=== PATIENT | female | born 1970 | race Caucasian/White ===

== ENCOUNTER → 2017-05-26 | Outpatient (CLI) | payer OTHER ==
--- NOTE | 2017-05-27 07:49 | MM ---
Reason for exam: screening (asymptomatic). Last mammogram was performed 6 months ago. History: Patient is postmenopausal. Family history of breast cancer in mother at age 62. Benign right US cyst aspiration of the right breast, April 04, 2008. Physical Findings: A clinical breast exam by your physician is recommended on an annual basis and results should be correlated with mammographic findings. MG Screening Mammo w CAD Bilateral CC and MLO view(s) were taken. Prior study comparison: November 28, 2016, left breast MG diagnostic mammo LT w CAD. May 31, 2016, left breast MG work up mamm w CAD LT. There are scattered fibroglandular densities. No significant changes when compared with prior studies. ASSESSMENT: Benign, BI-RAD 2 RECOMMENDATION: Routine screening mammogram of both breasts in 1 year.
== END | disposition home or self-care (01) ==
LOC: RADMAMWWP 10:18
PROVIDERS: ATTEND Family Medicine
DX: Z12.31 Encounter for screening mammogram for malignant neoplasm of breast (principal)

== ENCOUNTER → 2017-08-11 | Outpatient (CLI) | payer OTHER ==
--- NOTE | 2017-08-11 10:01 | USB ---
Reason for exam: follow-up at short interval from prior study. History: Patient is postmenopausal. Family history of breast cancer in mother at age 62. Benign right US cyst aspiration of the right breast, April 04, 2008. Indicated problem(s): pain in the left breast. Physical Findings: Nurse Summary: Noted pain and redness about 3 weeks in the left breast (nurse kp). US Breast LT Left breast ultrasound includes all four quadrants, the retroareolar region and axilla. Finding demonstrate no cystic or solid lesion seen. No suspicious sonographic abnormality. These results were verbally communicated with the patient and result sheet given to the patient on 08/11/17. ASSESSMENT: Negative, BI-RAD 1 RECOMMENDATION: Return to routine screening mammogram schedule for both breasts. Back on schedule.
== END | disposition home or self-care (01) ==
LOC: RADUSWWP 08:52
PROVIDERS: ATTEND Family Medicine
DX: N63 Unspecified lump in breast (principal)

== ENCOUNTER → 2018-06-02 | Outpatient (CLI) | payer OTHER ==
--- NOTE | 2018-06-02 14:11 | MM ---
Reason for exam: screening (asymptomatic). Last mammogram was performed 1 year ago. History: Patient is postmenopausal. Family history of breast cancer in mother at age 62. Benign right US cyst aspiration of the right breast, April 04, 2008. Physical Findings: A clinical breast exam by your physician is recommended on an annual basis and results should be correlated with mammographic findings. MG Screening Mammo w CAD Bilateral CC and MLO view(s) were taken. Prior study comparison: May 26, 2017, bilateral MG screening mammo w CAD. November 28, 2016, left breast MG diagnostic mammo LT w CAD. The breast tissue is heterogeneously dense. This may lower the sensitivity of mammography. No suspicious abnormality on the right. Increased density of the far posterior upper outer quadrant focal asymmetry on the left. ASSESSMENT: Incomplete: need additional imaging evaluation, BI-RAD 0 RECOMMENDATION: Special view mammogram of the left breast. If lesion persists on supplemental views, image directed ultrasound is recommended. [facility] will attempt to contact patient to return for supplemental views and ultrasound if indicated.
== END | disposition home or self-care (01) ==
LOC: RADMAMWWP 07:16
PROVIDERS: ATTEND Family Medicine
DX: Z12.31 Encounter for screening mammogram for malignant neoplasm of breast (principal)
CPT/HCPCS: 77067

== ENCOUNTER → 2018-06-16 | Outpatient (CLI) | payer OTHER ==
--- NOTE | 2018-06-16 15:41 | MM ---
Reason for exam: additional evaluation requested from abnormal screening. Last mammogram was performed less than 1 month ago. History: Patient is postmenopausal and history of other cancer. Family history of breast cancer in mother at age 62. Benign right US cyst aspiration of the right breast, April 04, 2008. Physical Findings: Nurse did not find any significant physical abnormalities on exam. MG Work Up Mamm w CAD LT Spot compression CC, spot compression MLO, and LM view(s) were taken of the left breast. Prior study comparison: June 02, 2018, bilateral MG screening mammo w CAD. May 26, 2017, bilateral MG screening mammo w CAD. Finding: There is a 12 mm circumscribed oval mass in the upper outer quadrant, posterior position of the left breast, does not go away on additional views but at site of asymmetric tissue. These results were verbally communicated with the patient and result sheet given to the patient on 06/16/18. ASSESSMENT: Incomplete: need additional imaging evaluation, BI-RAD 0 RECOMMENDATION: Ultrasound of the left breast.
--- NOTE | 2018-06-16 15:42 | USB ---
Reason for exam: additional evaluation requested from abnormal screening. History: Patient is postmenopausal and history of other cancer. Family history of breast cancer in mother at age 62. Benign right US cyst aspiration of the right breast, April 04, 2008. US Breast Workup Limited LT Left limited breast ultrasound including focal area of concern, retroareolar and axilla demonstrates no cystic or solid lesion seen. These results were verbally communicated with the patient and result sheet given to the patient on 06/16/18. ASSESSMENT: Negative, BI-RAD 1 RECOMMENDATION: Return to routine screening mammogram schedule for both breasts.
== END ==
LOC: RADMAMWWP 14:04
PROVIDERS: ATTEND Family Medicine
DX: R92.8 Other abnormal and inconclusive findings on diagnostic imaging of breast (principal)
CPT/HCPCS: 77065

== ENCOUNTER → 2018-08-05 | Outpatient (CLI) | payer OTHER ==
--- NOTE | 2018-08-05 13:43 | XR ---
EXAM TYPE: LUMBAR SPINE X RAY SERIES COMPARISON: NONE HISTORY: Pain TECHNIQUE: 3 views are submitted. FINDINGS: Alignment is anatomic. The pedicles are intact. The transverse processes are intact. There is no s pondylolysis or spondylolisthesis. Hypertrophic changes at all levels. There is marked facet arthrop athy L5-S1. IMPRESSION: 1. Hypertrophic changes at all levels with marked facet arthropathy L5-S1. Correlate with MRI as clin ically warranted.
== END | disposition home or self-care (01) ==
LOC: RADXRMAIN 13:20
PROVIDERS: ATTEND Family Medicine
DX: M46.97 Unspecified inflammatory spondylopathy, lumbosacral region (principal); M53.86 Other specified dorsopathies, lumbar region
CPT/HCPCS: 72100

== ENCOUNTER 2018-11-09 17:11 | Observation (INO) | payer OTHER ==
[2018-11-09 17:42] LABS: Basophils % (A) 0 %; Eosinophils # (A) 0.2 k/uL (0-0.7); Eosinophils % (A) 3 %; HCT 40.1 % (34.0-46.0); HGB 13.6 gm/dL (11.4-16.0); Lymphocytes # (A) 2.2 k/uL (1.0-4.8); Lymphocytes % (A) 32 %; MCH 31.6 pg (25.0-35.0); MCHC 33.9 g/dL (31.0-37.0); MCV 93.2 fL (80.0-100.0); Mean Platelet Volume 6.5; Monocytes # (A) 0.3 k/uL (0-1.0); Monocytes % (A) 4 %; Neutrophils % (A) 59 %; Platelet Count 232 k/uL (150-450); RDW 13.2 % (11.5-15.5); WBC 6.8 k/uL (3.8-10.6)
[2018-11-09 17:50] LABS: INR 0.9 (<1.2); Partial Thromboplastin Time 23.4 sec (22.0-30.0); Prothrombin Time 9.9 sec (9.0-12.0)
[2018-11-09 17:52] LABS: ALT 36 U/L (9-52); AST 29 U/L (14-36); Albumin 4.5 g/dL (3.5-5.0); Alkaline Phosphatase 104 U/L (38-126); Anion Gap 10 mmol/L; Blood Urea Nitrogen 14 mg/dL (7-17); Calcium 9.5 mg/dL (8.4-10.2); Carbon Dioxide 26 mmol/L (22-30); Chloride 104 mmol/L (98-107); Glucose 120 mg/dL (74-99); Potassium 3.6 mmol/L (3.5-5.1); Sodium 140 mmol/L (137-145); Total Bilirubin 0.8 mg/dL (0.2-1.3); Total Protein 7.5 g/dL (6.3-8.2)
--- NOTE | 2018-11-09 17:55 | XR ---
EXAMINATION TYPE: XR chest 2V DATE OF EXAM: 11/09/2018 COMPARISON: 03/29/2012 HISTORY: Chest pain TECHNIQUE: Frontal and lateral views of the chest are obtained. FINDINGS: Heart and mediastinum are normal. Lungs are clear. Diaphragm is normal. Bony thorax is nor mal. IMPRESSION: Normal chest. No change.
[2018-11-09 17:56] LABS: Creatine Kinase 52 U/L (30-135)
[2018-11-09 18:09] LABS: Creatine Kinase MB 1.3 ng/mL (0.0-2.4); Troponin I <0.012 ng/mL (0.000-0.034)
--- NOTE | 2018-11-09 18:51 | ED ---
General Adult HPI - General Chief complaint: Chest Pain Stated complaint: chest pain Time Seen by Provider: 11/09/18 18:18 Source: patient, family, RN notes reviewed Mode of arrival: ambulatory Limitations: no limitations - History of Present Illness Initial comments: Chief complaint and history of present illness this is a 48-year-old female who reports that during the evening she developed discomfort to her left arm and her chest. She rolled over and hurt from the anterior left chest through to the back. This is happened on again off again several times over the past one half day. Her daughter reports that she complained of discomfort several hours ago and she looked white and diaphoretic. Patient reports she was diaphoretic this morning when she had the pain. EKG done in the emergency room today is similar to one done 6 years ago when the patient had a stress test. No acute ST elevation no ectopy. - Related Data Home Medications Medication Instructions Recorded Confirmed Hydrochlorothiazide 25 mg PO DAILY 12/28/15 11/09/18 Losartan Potassium 25 mg PO DAILY 12/28/15 11/09/18 Ascorbic Acid [Vitamin C] 500 mg PO DAILY 11/09/18 11/09/18 Cholecalciferol (Vitamin D3) 2,000 unit PO DAILY 11/09/18 11/09/18 [Vitamin D3] Cyanocobalamin [Vitamin B-12] 500 mcg PO DAILY 11/09/18 11/09/18 Docusate [Colace] 200 mg PO DAILY 11/09/18 11/09/18 Vitamin E 1,000 unit PO DAILY 11/09/18 11/09/18 traZODone HCL [Desyrel] 100 mg PO HS 11/09/18 11/09/18 Allergies Allergy/AdvReac Type Severity Reaction Status Date / Time No Known Allergies Allergy Verified 11/09/18 20:17 Review of Systems ROS Statement: Those systems with pertinent positive or pertinent negative responses have been documented in the HPI. Review of systems no headache or visual acuity changes no stiff neck or neck pain on-again off-again chest discomfort more to the left side somewhat reproducible when she rolls toward the right side. States she had numbness and tingling to her left arm during the evening. Pain does not increase with deep breathing or coughing. No nausea no vomiting. She doesn't come sweaty when she has the pain. Does describe the pain is radiating somewhat around the side to the back on the left side. No complaint of any GI or complaints no neuro deficits. All systems reviewed Patient denies any chronic medical problems other than hypertension. Her surgeries include removal of skin cancer on her face. Family history significant for breast and lung cancer. Patient denies any ALLERGIES. Patient denies smoking. Patient denies alcohol use. ROS Other: All systems not noted in ROS Statement are negative. Past Medical History Past Medical History: Hypertension History of Any Multi-Drug Resistant Organisms: None Reported Past Surgical History: No Surgical Hx Reported Past Psychological History: No Psychological Hx Reported Smoking Status: Never smoker Past Alcohol Use History: None Reported Past Drug Use History: None Reported General Exam - General Exam Comments Initial Comments: General: The patient is awake and alert, currently pain-free, history of left-sided chest pain that goes to the left back down the left arm several times over the past 12 hours. Vital signs shows temperature 97.6 pulse 72 respiratory rate 18 , blood pressure 116/78 Eye: Pupils are equal, round and reactive to light, extra-ocular movements are intact ; there is normal conjunctiva bilaterally. No signs of icterus. Ears, nose, mouth and throat: There are moist mucous membranes and no oral lesions. Neck: The neck is supple, there is no tenderness, no carotid bruit, thyroid not enlarged. Cardiovascular: There is a regular rate and rhythm. No murmur, rub or gallop is appreciated. Respiratory: Lungs are clear to auscultation, respirations are non-labored, breath sounds are equal. No wheezes, stridor, rales, or rhonchi. Patient thinks she can reproduce some of the pain by rolling toward the right side when bringing her right arm over her midline. Examination of the skin shows no evidence of any rash. Early shingles was discussed. Patient reports she has had shingles in the past. No pain on palpation of the chest wall. Gastrointestinal: Soft, non-distended, non-tender abdomen without masses or organomegaly noted. There is no rebound or guarding present. No CVA tenderness. Bowel sounds are unremarkable. Back: There is no tenderness to palpation in the midline. There is no obvious deformity. No rashes noted. Musculoskeletal: Normal ROM, no tenderness, minimal edema lower extremities.. There is no calf tenderness or swelling. Sensation intact. Pulses equal bilaterally 2+. Neurological: CN II-XII intact, There are no obvious motor or sensory deficits. Coordination appears grossly intact. Speech is normal. No focal or lateralizing findings Skin: Skin is warm and dry and no rashes or lesions are noted. Psychiatric: Cooperative, Limitations: no limitations Course Vital Signs 11/09/18 11/09/18 11/09/18 17:13 18:31 19:06 Temperature 97.6 F Pulse Rate 72 75 Pulse Rate [ 73 [employer]man ] Respiratory 18 16 Rate Blood Pressure 116/78 113/82 O2 Sat by Pulse 97 Oximetry EKG Findings - EKG Comments: EKG Findings:: EKG was done and reviewed upon arrival to emergency room. EKG times to 1719 showing normal sinus rhythm with nonspecific ST-T wave changes. No acute ST elevation or ectopy. Rate 92 with a [place] interval is 154 QRS 82 QT [address] Armstrong this EKG was compared to one done on 03/29/2012 and the patient was here having a stress test. And they are similar. Medical Decision Making - Medical Decision Making Medical decision making; 48-year-old female with left-sided chest pain radiates around to the back left side increases somewhat when she leans forward or rolls to the right. Diaphoretic at times with chest pain. EKG was done and compared to a previous EKG showing no acute ST elevation. Lab work shows white count 6.8 hemoglobin 13 hematocrit of 40 with a INR of 0.9. Potassium is 3.6 BUN 14 creatinine 0.75 and GFR greater than 90. Glucose 120. Troponin less than 0.012. D-dimer 0.31 Her chest pain started earlier in the morning approximately 4 AM. Her chest x-ray was done and the radiologist's findings are; heart and mediastinum are normal. Lungs are clear. Diaphragm is normal. Or thorax is normal. Impression; normal chest no change. Patient had CT of her chest abdomen and pelvis to rule out dissection and she also had CT result possibility of a PE. The radiologist reports no evidence of PE. No evidence of aortic dissection. He does mention a small subpleural nodule in the right lower lobe. Dr. Jones This will be followed by her family doctor. The patient was started on Nitropaste, given Tylenol for headache, started on low-dose heparin. Discussed the patient and at bedside costochondritis , pleurisy, angina. Lab tests all be within normal limits this time patient was admitted with further evaluation and consult cardiology. I spoke with Dr. encinas on-call hospitalist. - Lab Data Result diagrams: 11/09/18 17:27 11/09/18 17:27 Lab Results 11/09/18 11/09/18 11/09/18 Range/Units 17:27 17:27 17:27 WBC 6.8 (3.8-10.6) k/uL RBC 4.30 (3.80-5.40) m/uL Hgb 13.6 (11.4-16.0) gm/dL Hct 40.1 (34.0-46.0) % MCV 93.2 (80.0-100.0) fL MCH 31.6 (25.0-35.0) pg MCHC 33.9 (31.0-37.0) g/dL RDW 13.2 (11.5-15.5) % Plt Count 232 (150-450) k/uL Neutrophils % 59 % Lymphocytes % 32 % Monocytes % 4 % Eosinophils % 3 % Basophils % 0 % Neutrophils # 4.0 (1.3-7.7) k/uL Lymphocytes # 2.2 (1.0-4.8) k/uL Monocytes # 0.3 (0-1.0) k/uL Eosinophils # 0.2 (0-0.7) k/uL Basophils # 0.0 (0-0.2) k/uL PT (9.0-12.0) sec INR (<1.2) APTT (22.0-30.0) sec D-Dimer (<0.60) mg/L FEU Sodium 140 (137-145) mmol/L Potassium 3.6 (3.5-5.1) mmol/L Chloride 104 (98-107) mmol/L Carbon Dioxide 26 (22-30) mmol/L Anion Gap 10 mmol/L BUN 14 (7-17) mg/dL Creatinine 0.75 (0.52-1.04) mg/dL Est GFR (CKD-EPI)AfAm >90 (>60 ml/min/1.73 sqM) Est GFR (CKD-EPI)NonAf >90 (>60 ml/min/1.73 sqM) Glucose 120 H (74-99) mg/dL Calcium 9.5 (8.4-10.2) mg/dL Magnesium 2.0 (1.6-2.3) mg/dL Total Bilirubin 0.8 (0.2-1.3) mg/dL AST 29 (14-36) U/L ALT 36 (9-52) U/L Alkaline Phosphatase 104 (38-126) U/L Total Creatine Kinase 52 (30-135) U/L CK-MB (CK-2) 1.3 (0.0-2.4) ng/mL CK-MB (CK-2) Rel Index 2.5 Troponin I <0.012 (0.000-0.034) ng/mL Total Protein 7.5 (6.3-8.2) g/dL Albumin 4.5 (3.5-5.0) g/dL 11/09/18 11/09/18 Range/Units 17:27 17:27 WBC (3.8-10.6) k/uL RBC (3.80-5.40) m/uL Hgb (11.4-16.0) gm/dL Hct (34.0-46.0) % MCV (80.0-100.0) fL MCH (25.0-35.0) pg MCHC (31.0-37.0) g/dL RDW (11.5-15.5) % Plt Count (150-450) k/uL Neutrophils % % Lymphocytes % % Monocytes % % Eosinophils % % Basophils % % Neutrophils # (1.3-7.7) k/uL Lymphocytes # (1.0-4.8) k/uL Monocytes # (0-1.0) k/uL Eosinophils # (0-0.7) k/uL Basophils # (0-0.2) k/uL PT 9.9 (9.0-12.0) sec INR 0.9 (<1.2) APTT 23.4 (22.0-30.0) sec D-Dimer 0.31 (<0.60) mg/L FEU Sodium (137-145) mmol/L Potassium (3.5-5.1) mmol/L Chloride (98-107) mmol/L Carbon Dioxide (22-30) mmol/L Anion Gap mmol/L BUN (7-17) mg/dL Creatinine (0.52-1.04) mg/dL Est GFR (CKD-EPI)AfAm (>60 ml/min/1.73 sqM) Est GFR (CKD-EPI)NonAf (>60 ml/min/1.73 sqM) Glucose (74-99) mg/dL Calcium (8.4-10.2) mg/dL Magnesium (1.6-2.3) mg/dL Total Bilirubin (0.2-1.3) mg/dL AST (14-36) U/L ALT (9-52) U/L Alkaline Phosphatase (38-126) U/L Total Creatine Kinase (30-135) U/L CK-MB (CK-2) (0.0-2.4) ng/mL CK-MB (CK-2) Rel Index Troponin I (0.000-0.034) ng/mL Total Protein (6.3-8.2) g/dL Albumin (3.5-5.0) g/dL Disposition Clinical Impression: Unstable angina Disposition: ADMITTED IP TO THIS HOSP Condition: Fair Is patient prescribed a controlled substance at d/c from ED?: No Referrals: Fletcher sOpina MD [Primary Care Provider] - 1-2 days
--- NOTE | 2018-11-09 19:50 | CT ---
EXAMINATION TYPE: CT angio chest DATE OF EXAM: 11/09/2018 7:31 PM COMPARISON: None HISTORY: Chest pain. CT DLP: 335.7 mGycm Automated exposure control for dose reduction was used. CONTRAST: CTA scan of the thorax is performed with IV Contrast, patient injected with 100ml mL of Isovue 370, p ulmonary embolism protocol. . There are 3-D post processed images. FINDINGS: There is mild subsegmental atelectasis in the lower lung sanchez on the right side. There is 1 cm subp leural nodule at the right posterior lung base. There is no pleural effusion. Heart size is normal. T here is no pericardial effusion. Thoracic aorta shows no evidence of aneurysm or dissection. There ar e enlarged subcarinal and bronchial lymph nodes that measure 3 cm in the subcarinal region and 1.5 cm at the right pulmonary hilum. There is 1 cm anterior mediastinal lymph node. I see no filling defects in the pulmonary arteries. There is spurring in the thoracic spine. I see no bony destructive process. IMPRESSION: NO EVIDENCE OF PULMONARY EMBOLISM. SUBPLEURAL SMALL NODULE IN THE RIGHT LOWER LOBE. MEDIASTINAL AND BRONCHIAL ADENOPATHY IS NONSPECIFIC.
--- NOTE | 2018-11-09 20:03 | CT ---
EXAMINATION TYPE: CT angio thor/abd pel aorta DATE OF EXAM: 11/09/2018 COMPARISON: None HISTORY: Chest pain. CT DLP: 797.1 mGycm. Automated Exposure Control for Dose Reduction was Utilized. CONTRAST: CT scan of the thorax, abdomen and pelvis is performed with IV Contrast, patient injected with 100ml mL of Isovue 370. FINDINGS: There are 3-D post processed images. Images are obtained from the thoracic inlet to the floor of the pelvis with intravenous contrast. There is normal branching pattern of the great vessels on the aortic arch. Thoracic aorta is intact w ithout evidence of aneurysm or dissection. There is patency of the celiac artery and superior mesente selam artery. There is bilateral patency of the renal arteries. Abdominal aorta has normal size without evidence of aneurysm or dissection. There is patency of the common internal and external iliac arter ies bilaterally. There is bilateral patency of the femoral arteries. There is no free fluid in the pelvis. Bladder distends smoothly. Uterus is anteverted. There is no in guinal hernia. I see no pelvic mass. There is no intestinal wall thickening. There are no dilated loops. Appendix ap pears normal. There is no mesenteric edema or adenopathy. Kidneys appear normal. Liver spleen pancrea s gallbladder appear normal. Bile ducts are not dilated. The lungs are clear of infiltrate. There are enlarged right bronchial and subcarinal lymph nodes. The re is no evidence of a pulmonary mass. There is 1 cm pleural-based nodule in the lateral right lower lobe. There is probably some fatty infiltration of the liver. I see no bony destructive process. Bony pelvis is intact. IMPRESSION: Normal CT angiogram of the chest abdomen pelvis. No evidence of aortic aneurysm or dissection. No mayur dence of stenosis. Nonspecific mediastinal and right bronchial adenopathy.
[2018-11-09] MEDS ORDERED: HEPARIN SODIUM,PORCINE 5,000 UNIT/ML 1 ML VIAL IV STA (20:06)
[2018-11-09] MEDS ORDERED: NITROGLYCERIN 0.1MG/HR PATCH TRANSDERM ONE (20:08)
[2018-11-09] MEDS ORDERED: HEPARIN SOD,PORK IN 0.45% NACL 25,000 UNIT in 0.45% NACL 1 500ML.BAG IV SCH (20:15)
[2018-11-09] MEDS ORDERED: ACETAMINOPHEN TAB 500 MG TAB PO STA (21:15)
[2018-11-09] MEDS ORDERED: SODIUM CHLORIDE 0.9% 500 ML 500 ML IV SCH (21:30)
[2018-11-09] MEDS ORDERED: ACETAMINOPHEN TAB 325 MG TAB PO PRN (21:38)
[2018-11-09] MEDS ORDERED: NALOXONE 0.4 MG/ML 1 ML VIAL IV PRN (21:38)
[2018-11-09] MEDS ORDERED: SODIUM CHLORIDE 0.9% 1,000 ML IV SCH (21:45)
[2018-11-09 22:28] VITALS: RESP 18
[2018-11-09 23:11] VITALS: BMI 36.2
[2018-11-10] MEDS: HYDROmorphone 1 MG/ML 1 ML SYRINGE IVP PRN ×2 (08:43→12:12)
--- NOTE | 2018-11-10 10:46 | P.CRDCN ---
History of Present Illness History of present illness: This is a pleaseant 48-year-old female past medical history significant for hypertension. She follows with Dr. Mcclellan in the office. We have been asked to see her in consultation for chest pain. She states shewoke up Friday night with tingling in the left arm down to the hand. She rolled over to adjust her sleeping position and started feeling a tightness in her chest. The discomfort started in the mid-sternal region and radiated around her entire chest. She rolled back over and tried adjusting her position again to attempt to alleviate the discomfort. Unfortunately it persisted. She then got up with a heating pad and tried laying in the recliner. This was also unsuccessful in relieving her pain. She woke up and went about her day. The pain continued to come and go intermittently throughout the day with no specific aggravating or alleviating factors. At one point the pain radiated around to her back and felt like someone was squeezing her torso. She has continued to have discomfort intermittently through the night and states she woke up last night diaphoretic and had to change her gown. She denies associated shortness of breath, dizziness , nausea, vomiting or palpitations. She is currently chest pain free. EKG reveals sinus mechanism with no acute ST or T-wave abnormalities. Chest xray negative for an acute cardiopulmonary process. CT angios of chest negative for pulmonary embolism with a subpleural small nodule in the right lower lobe with nonspecific mediastinal and bronchial adenopathy. Laboratory data reviewed, WBC 6.8, hemoglobin 13.6, platelets 232, d-dimer 0.31 , sodium 140, potassium 3.6, creatinine 0.75, magnesium 2.0, cardiac enzymes negative 3. Most recent stress test 2014 was negative for stress induced ischemic changes. At the time of my exam: CONSTITUTIONAL: Denies fever. Denies chills. EYES: Denies blurred vision. Denies vision changes. Denies eye pain. EARS, NOSE, MOUTH & THROAT: Denies headache. Denies sore throat. Denies ear pain. CARDIOVASCULAR: Denies chest pain. Denies shortness of breath. Denies orthopnea. Denies PND. Denies palpitations. RESPIRATORY: Denies cough. GASTROINTESTINAL: Denies abdominal pain. Denies diarrhea. Denies constipation. Denies nausea. Denies vomiting. MUSCULOSKELETAL: Denies myalgias. INTEGUMENTARY: Denies pruitis. Denies rash. NEUROLOGIC: Denies numbness. Denies tingling. Denies weakness. PSYCHIATRIC: Denies anxiety. Denies depression. ENDOCRINE: Denies fatigue. Denies weight change. Denies polydipsia. Denies polyurina. GENITOURINARY: Denies burning, hematuria or urgency with micturation. HEMATOLOGIC: Denies history of anemia. Denies bleeding. Blood pressure 97/61 heart rate 59 afebrile maintaining oxygen saturation on room air GENERAL: This is a 48-year-old female in no apparent distress at the time of my examination. HEENT: Head is atraumatic, normocephalic. Pupils are equal, round. Sclerae anicteric. Conjunctivae are clear. Mucous membranes of the mouth are moist. Neck is supple. There is no jugular venous distention. No carotid bruit is heard. LUNGS: Clear to auscultation no wheezes, rales or rhonchi. No chest wall tenderness is noted on palpation or with deep breathing. HEART: Regular rate and rhythm without murmurs, rubs or gallops. S1 and S2 heard. ABDOMEN: Soft, nontender. Bowel sounds are heard. No organomegaly noted. EXTREMITIES: No evidence of peripheral edema and no calf tenderness noted. VASCULAR: Radial and dorsalis pedis pulses palpated, no evidence of clubbing. NEUROLOGIC: Patient is awake, alert and oriented x3. ASSESSMENT Chest pain, atypical. An acute coronary event has been ruled out with no EKG evidence of ischemia and negative cardiac enzymes. Hypertension PLAN An acute coronary event has been ruled out with no EKG evidence of ischemia and negative cardiac enzymes. Perform stress echocardiogram to assess for stress induced ischemia. If stress test is normal she is stable from a cardiac perspective. Follow up with Dr. Mcclellan in 2-3 weeks. Thank you kindly for this consultation. Nurse Practitioner note has been reviewed, I agree with a documented findings and plan of care. Patient was seen and examined. Past Medical History Past Medical History: Cancer, Hypertension Additional Past Medical History / Comment(s): skin cancer History of Any Multi-Drug Resistant Organisms: None Reported Past Surgical History: No Surgical Hx Reported Additional Past Anesthesia/Blood Transfusion Reaction / Comment(s): pt. is not sure Past Psychological History: No Psychological Hx Reported Smoking Status: Never smoker Past Alcohol Use History: None Reported Past Drug Use History: None Reported - Past Family History Mother Family Medical History: Cancer Father Family Medical History: Cancer Additional Family Medical History / Comment(s): lung cancer Medications and Allergies Home Medications Medication Instructions Recorded Confirmed Type Hydrochlorothiazide 25 mg PO DAILY 12/28/15 11/09/18 History Losartan Potassium 25 mg PO DAILY 12/28/15 11/09/18 History Ascorbic Acid [Vitamin C] 500 mg PO DAILY 11/09/18 11/09/18 History Cholecalciferol (Vitamin D3) 2,000 unit PO DAILY 11/09/18 11/09/18 History [Vitamin D3] Cyanocobalamin [Vitamin B-12] 500 mcg PO DAILY 11/09/18 11/09/18 History Docusate [Colace] 200 mg PO DAILY 11/09/18 11/09/18 History Vitamin E 1,000 unit PO DAILY 11/09/18 11/09/18 History traZODone HCL [Desyrel] 100 mg PO HS 11/09/18 11/09/18 History Allergies Allergy/AdvReac Type Severity Reaction Status Date / Time No Known Allergies Allergy Verified 11/09/18 20:17 Physical Exam Vitals: Vital Signs Temp Pulse Pulse Pulse Resp BP BP 11/10/18 07:10 98.1 F 59 L 18 11/10/18 04:00 97.9 F 61 18 93/57 11/10/18 00:00 63 18 11/09/18 23:15 63 18 11/09/18 22:58 97.5 F L 63 18 110/57 11/09/18 22:00 98.2 F 77 18 109/86 11/09/18 21:00 76 18 119/73 11/09/18 19:06 75 16 113/82 11/09/18 18:31 73 11/09/18 17:13 97.6 F 72 18 116/78 BP Pulse Ox 11/10/18 07:10 97/61 96 11/10/18 04:00 94 L 11/10/18 00:00 11/09/18 23:15 11/09/18 22:58 96 11/09/18 22:00 99 11/09/18 21:00 98 11/09/18 19:06 97 11/09/18 18:31 11/09/18 17:13 Intake and Output 11/09/18 11/10/18 11/10/18 22:59 06:59 14:59 Intake Total 156.667 Balance 156.667 Intake: Intake, IV Titration 156.667 Amount Heparin Sod,Pork in 0.45% 156.667 NaCl 25,000 unit In 0.45 % NaCl 1 500ml.bag @ 11. 14 UNITS/KG/HR 20 mls/hr IV .Q24H [facility] Rx#: [id number] Other: Voiding Method Toilet # Voids 2 Weight 89.811 kg Results 11/09/18 17:27 11/09/18 17:27 Cardiac Enzymes 11/09/18 11/09/18 11/09/18 Range/Units 17:27 17:27 23:22 AST 29 (14-36) U/L CK-MB (CK-2) 1.3 (0.0-2.4) ng/mL Troponin I <0.012 <0.012 (0.000-0.034) ng/mL 11/10/18 Range/Units 04:31 AST (14-36) U/L CK-MB (CK-2) (0.0-2.4) ng/mL Troponin I <0.012 (0.000-0.034) ng/mL Coagulation 11/09/18 11/10/18 Range/Units 17:27 04:31 PT 9.9 (9.0-12.0) sec APTT 23.4 42.3 H (22.0-30.0) sec CBC 11/09/18 Range/Units 17:27 WBC 6.8 (3.8-10.6) k/uL RBC 4.30 (3.80-5.40) m/uL Hgb 13.6 (11.4-16.0) gm/dL Hct 40.1 (34.0-46.0) % Plt Count 232 (150-450) k/uL Comprehensive Metabolic Panel 11/09/18 Range/Units 17:27 Sodium 140 (137-145) mmol/L Potassium 3.6 (3.5-5.1) mmol/L Chloride 104 (98-107) mmol/L Carbon Dioxide 26 (22-30) mmol/L BUN 14 (7-17) mg/dL Creatinine 0.75 (0.52-1.04) mg/dL Glucose 120 H (74-99) mg/dL Calcium 9.5 (8.4-10.2) mg/dL AST 29 (14-36) U/L ALT 36 (9-52) U/L Alkaline Phosphatase 104 (38-126) U/L Total Protein 7.5 (6.3-8.2) g/dL Albumin 4.5 (3.5-5.0) g/dL Current Medications Generic Name Dose Route Start Last Admin Trade Name Freq PRN Reason Stop Dose Admin Acetaminophen 650 mg 11/09/18 21:38 11/10/18 06:55 Tylenol Tab PO 650 mg Q6HR PRN Administration Mild Pain or Fever > 100.5 Hydromorphone HCl 0.5 mg 11/09/18 21:38 Dilaudid IVP Q3HR PRN Severe Pain Sodium Chloride 500 mls @ 80 mls/hr 11/09/18 21:30 11/09/18 21:23 Saline 0.9% IV 20 mls/hr .Q6H15M [facility] Administration Sodium Chloride 1,000 mls @ 20 mls/hr 11/09/18 21:45 11/10/18 05:54 Saline 0.9% IV 20 mls/hr .Q24H [facility] Administration Naloxone HCl 0.2 mg 11/09/18 21:38 Narcan IV Q2M PRN Opioid Reversal Intake and Output 11/09/18 11/10/18 11/10/18 22:59 06:59 14:59 Intake Total 156.667 Balance 156.667 Intake: Intake, IV Titration 156.667 Amount Heparin Sod,Pork in 0.45% 156.667 NaCl 25,000 unit In 0.45 % NaCl 1 500ml.bag @ 11. 14 UNITS/KG/HR 20 mls/hr IV .Q24H [facility] Rx#: [id number] Other: Voiding Method Toilet # Voids 2 Weight 89.811 kg 11/09/18 17:27 11/09/18 17:27
--- NOTE | 2018-11-10 13:43 | ECHOS ---
STRESS ECHOCARDIOGRAM DATE OF SERVICE: 11/10/2018 INDICATIONS: Chest pain. MEDICATIONS: BASELINE HEART RATE: 72 BASELINE BLOOD PRESSURE: 111/69 MAXIMUM HEART RATE: 153 MAXIMUM BLOOD PRESSURE: 175/81 85% MPHR: 145 100% MPHR: 170 METS: 10.1 MAXIMUM STAGE REACHED: II TOTAL EXERCISE TIME: 8 minutes 39 seconds CLINICAL INFORMATION: Baseline rhythm is sinus mechanism, rate 72, normal axis and intervals, normal electrocardiogram. Baseline blood pressure 111/69 mmHg. Patient exercised on Musa protocol 8 minute 39 seconds reaching a peak rate 153 beats per minute which is equal to 90% maximum predicted heart rate. Peak blood pressure 175/81 mmHg. Test was terminated secondary to fatigue. There was no chest pain. Electrocardiograph monitoring revealed no evidence of diagnostic ischemic ST deviation. Baseline echocardiogram revealed normal wall thickness and motion. At peak exercise, there was normal wall motion augmentation with no hypokinesis or dyskinesis. CONCLUSION: 1. Average exercise tolerance with normal electrocardiograph response to exercise. 2. Normal stress echocardiogram with no evidence of stress induced ischemia. MMODL / IJN: [id number] /
[2018-11-10 15:53] VITALS: BP 109/72; PULSE 55; TEMP 97.6
--- NOTE | 2018-11-10 23:18 | P.HPIM ---
History of Present Illness Combined H&P and discharge summary This is a pleasant 48 years old female with past medical history of hypertension. Presents with central chest pain of one-day duration radiating around to the side on the left side about squeezing in character was moderate in the beginning and then gets more severe that is increased with movement. Associated with some numbness in the left upper extremity. No associated dyspnea. No nausea or vomiting. No change in urine. NO FEVER . Patient has been evaluated by cardiology team reentered she underwent stress test which was negative. Patient chest pain subsided significantly. And now is very minimal patient's feels she can go home. She had some headache earlier but now is also subsided. Patient denies any other symptoms and wanted to be discharged. Cardiology has cleared the patient for discharge. Patient was found stable and can be discharged home however she needs follow-up as an outpatient. Patient was instructed to follow up with her PCP in one week and cardiology in 1-2 weeks and she agrees. She told me she'll call make appointments as instructed also pt has pulmonary nodule and enlarged LN about 3 cm, pt informed as well as and her mom at bed side upon her request, risks including but not limited to cancer are explained to the pt and she verbalized understanding and acceptance, i called her pcp upon pt approval and I updated him with these finding of pulmonary nodulen and LAP and he kindly took a note of this , i wanted to make appointment for her but his office told me she does not carry insurance currently, when i told the pt with this she said that she is going to get her insurance on this coming december first from her work and that she will call and make appointment with her pcp then but she agreed the staff to make appointment with pulmonary clinic but asked to be after December, appointment was make on 12/11/17 to which she agrees to and said she will follow up . a copy of the CT of the chest is provided for the pt upon her request. physical exam Gen.: Patient alert awake and oriented X 3, NOT IN DISTRESS CVS: s1-s2, RRR, no murmur CHEST:bilateral CTA, no wheezing or crepitation Abdomen: Soft, no tenderness, no distention, positive bowel sounds Extremities: No leg edema or induration Time spent more than 35 minutes Review of Systems CONSTITUTIONAL: No fever, no malaise, no fatigue. HEENT: No recent visual problems or hearing problems. Denied any sore throat. CARDIOVASCULAR: No orthopnea, PND, no palpitations, no syncope. PULMONARY: No shortness of breath, no cough, no hemoptysis. GASTROINTESTINAL: No diarrhea, no nausea, no vomiting, no abdominal pain. Normoactive bowel sounds. NEUROLOGICAL: No headaches, no weakness, no numbness. HEMATOLOGICAL: Denies any bleeding or petechiae. GENITOURINARY: Denies any burning micturition, frequency, or urgency. MUSCULOSKELETAL/RHEUMATOLOGICAL: Denies any joint pain, swelling, or any muscle pain. ENDOCRINE: Denies any polyuria or polydipsia. Past Medical History Past Medical History: Cancer, Hypertension Additional Past Medical History / Comment(s): skin cancer History of Any Multi-Drug Resistant Organisms: None Reported Past Surgical History: No Surgical Hx Reported Additional Past Anesthesia/Blood Transfusion Reaction / Comment(s): pt. is not sure Past Psychological History: No Psychological Hx Reported Smoking Status: Never smoker Past Alcohol Use History: None Reported Past Drug Use History: None Reported - Past Family History Mother Family Medical History: Cancer Father Family Medical History: Cancer Additional Family Medical History / Comment(s): lung cancer Medications and Allergies Home Medications Medication Instructions Recorded Confirmed Type Hydrochlorothiazide 25 mg PO DAILY 12/28/15 11/09/18 History Losartan Potassium 25 mg PO DAILY 12/28/15 11/09/18 History Ascorbic Acid [Vitamin C] 500 mg PO DAILY 11/09/18 11/09/18 History Cholecalciferol (Vitamin D3) 2,000 unit PO DAILY 11/09/18 11/09/18 History [Vitamin D3] Cyanocobalamin [Vitamin B-12] 500 mcg PO DAILY 11/09/18 11/09/18 History Docusate [Colace] 200 mg PO DAILY 11/09/18 11/09/18 History Vitamin E 1,000 unit PO DAILY 11/09/18 11/09/18 History traZODone HCL [Desyrel] 100 mg PO HS 11/09/18 11/09/18 History Acetaminophen Tab [Tylenol] 650 mg PO Q6HR PRN tab 11/10/18 Rx Allergies Allergy/AdvReac Type Severity Reaction Status Date / Time No Known Allergies Allergy Verified 11/09/18 20:17 Physical Exam Vitals: Vital Signs Temp Pulse Pulse Pulse Resp BP BP 11/10/18 12:06 97.4 F L 77 18 11/10/18 07:10 98.1 F 59 L 18 11/10/18 04:00 97.9 F 61 18 93/57 11/10/18 00:00 63 18 11/09/18 23:15 63 18 11/09/18 22:58 97.5 F L 63 18 110/57 11/09/18 22:00 98.2 F 77 18 109/86 11/09/18 21:00 76 18 119/73 11/09/18 19:06 75 16 113/82 11/09/18 18:31 73 11/09/18 17:13 97.6 F 72 18 116/78 BP Pulse Ox 11/10/18 12:06 132/85 96 11/10/18 07:10 97/61 96 11/10/18 04:00 94 L 11/10/18 00:00 11/09/18 23:15 11/09/18 22:58 96 11/09/18 22:00 99 11/09/18 21:00 98 11/09/18 19:06 97 11/09/18 18:31 11/09/18 17:13 Intake and Output 11/09/18 11/10/18 11/10/18 22:59 06:59 14:59 Intake Total 156.667 440 Balance 156.667 440 Intake: Intake, IV Titration 156.667 Amount Heparin Sod,Pork in 0.45% 156.667 NaCl 25,000 unit In 0.45 % NaCl 1 500ml.bag @ 11. 14 UNITS/KG/HR 20 mls/hr IV .Q24H [facility] Rx#: [id number] Oral 440 Other: Voiding Method Toilet Toilet # Voids 2 Weight 89.811 kg See above Results CBC & Chem 7: 11/09/18 17:27 11/09/18 17:27 Labs: Abnormal Lab Results - Last 24 Hours (Table) 11/09/18 11/10/18 Range/Units 17:27 04:31 APTT 42.3 H (22.0-30.0) sec Glucose 120 H (74-99) mg/dL Thrombosis Risk Factor Assmnt - Choose All That Apply Each Factor Represents 1 point: Age 41-60 years, Obesity (BMI >25) Other Risk Factors: No Thrombosis Risk Factor Assessment Total Risk Factor Score: 2 Thrombosis Risk Factor Assessment Level: Low Risk Assessment and Plan Assessment: Chest pain, acute coronary syndrome has been ruled out. Subsided Headache, mostly tension. Subsided History of essential hypertension Plan: Patient had negative stress test and she is being cleared by cardiology team for discharge. Patient will be discharged in stable condition but guarded prognosis with instruction to follow up as above pt is also infomred about the enlarged pulmonary LN and lung nodule of 1 cm, with reocmmendatino for pulmonary evaluation , pt accepts to see pulmonar
--- NOTE | 2018-11-10 23:18 | P.DS ---
Providers Date of admission: 11/09/18 21:38 Attending physician: Hu Chaves MD Consults: 11/09/18 21:38 Consult Physician Stat Consulting Provider: Teo Macedo Consult Reason/Comments: Unstable angina Do you want consulting provider notified?: Yes Primary care physician: Fletcher Ospina [facility] Course: please see side H&P from today Patient Condition at Discharge: Fair Plan - Discharge Summary Discharge Rx Participant: No New Discharge Prescriptions: New Acetaminophen Tab [Tylenol] 650 mg PO Q6HR PRN tab PRN Reason: Mild Pain Or Fever > 100.5 Continue Losartan Potassium 25 mg PO DAILY Hydrochlorothiazide 25 mg PO DAILY traZODone HCL [Desyrel] 100 mg PO HS Vitamin E 1,000 unit PO DAILY Docusate [Colace] 200 mg PO DAILY Cyanocobalamin [Vitamin B-12] 500 mcg PO DAILY Cholecalciferol (Vitamin D3) [Vitamin D3] 2,000 unit PO DAILY Ascorbic Acid [Vitamin C] 500 mg PO DAILY Discharge Medication List Hydrochlorothiazide 25 mg PO DAILY 12/28/15 [History] Losartan Potassium 25 mg PO DAILY 12/28/15 [History] Ascorbic Acid [Vitamin C] 500 mg PO DAILY 11/09/18 [History] Cholecalciferol (Vitamin D3) [Vitamin D3] 2,000 unit PO DAILY 11/09/18 [History] Cyanocobalamin [Vitamin B-12] 500 mcg PO DAILY 11/09/18 [History] Docusate [Colace] 200 mg PO DAILY 11/09/18 [History] Vitamin E 1,000 unit PO DAILY 11/09/18 [History] traZODone HCL [Desyrel] 100 mg PO HS 11/09/18 [History] Acetaminophen Tab [Tylenol] 650 mg PO Q6HR PRN tab 11/10/18 [Rx] Follow up Appointment(s)/Referral(s): Fletcher Ospina MD [Primary Care Provider] - 1-2 days Jossue Mckeon MD [STAFF PHYSICIAN] - 11/27/18 3:15 pm Wilfred Ramos MD [STAFF PHYSICIAN] - 12/11/18 9:00 am Activity/Diet/Wound Care/Special Instructions: cardiac diet activity as tolerated Discharge Disposition: HOME SELF-CARE
== END 2018-11-10 16:50 | disposition home or self-care (01) ==
LOC: EC 17:11 → 1SOBS 21:38
PROVIDERS: ADMIT Internal Medicine; ATTEND Internal Medicine
DX: R07.89 Other chest pain (principal); R61 Generalized hyperhidrosis; M79.602 Pain in left arm; R20.2 Paresthesia of skin; I10 Essential (primary) hypertension; R20.0 Anesthesia of skin; R91.1 Solitary pulmonary nodule; R59.9 Enlarged lymph nodes, unspecified; R51 Headache; Z79.899 Other long term (current) drug therapy; E66.9 Obesity, unspecified; Z68.36 Body mass index [BMI] 36.0-36.9, adult; Z85.828 Personal history of other malignant neoplasm of skin; Z80.3 Family history of malignant neoplasm of breast; Z80.1 Family history of malignant neoplasm of trachea, bronchus and lung
CPT/HCPCS: 96375; 96376 ×2; 96365; 99285; 36415; 93005; 93351; 85379; 80053; 82550; 82553; 83735; 84484 ×2; 85025; 85610; 85730 ×2; 71046; 71275; 74174; G0378 ×2; J1644 ×2; J1170; Q9967

== ENCOUNTER 2020-10-24 16:35 | Emergency (ER) | payer BC ==
[2020-10-24 16:53] VITALS: BP 118/78; PULSE 83; RESP 20; TEMP 99
--- NOTE | 2020-10-24 17:17 | ED ---
ENT HPI - General Chief complaint: ENT Stated complaint: no smell/taste, body aches, cough Time Seen by Provider: 10/24/20 16:57 Source: patient Mode of arrival: ambulatory Limitations: no limitations - History of Present Illness Initial comments: 50-year-old female presented for slight cough bodyaches loss of taste and smell. Patient states she is concerned of "which she states that other coworkers have had similar symptoms. Patient denies chest pain shortness of breath nausea vomiting diarrhea denies additional complaints she states she is presenting for covid 19 test - Related Data Home Medications Medication Instructions Recorded Confirmed Hydrochlorothiazide 25 mg PO DAILY 12/28/15 11/09/18 Losartan Potassium 25 mg PO DAILY 12/28/15 11/09/18 Ascorbic Acid [Vitamin C] 500 mg PO DAILY 11/09/18 11/09/18 Cholecalciferol (Vitamin D3) 2,000 unit PO DAILY 11/09/18 11/09/18 [Vitamin D3] Cyanocobalamin [Vitamin B-12] 500 mcg PO DAILY 11/09/18 11/09/18 Docusate [Colace] 200 mg PO DAILY 11/09/18 11/09/18 Vitamin E 1,000 unit PO DAILY 11/09/18 11/09/18 traZODone HCL [Desyrel] 100 mg PO HS 11/09/18 11/09/18 Previous Rx's Medication Instructions Recorded Acetaminophen Tab [Tylenol] 650 mg PO Q6HR PRN tab 11/10/18 predniSONE 50 mg PO DAILY 4 Days #4 tab 10/24/20 Allergies Allergy/AdvReac Type Severity Reaction Status Date / Time No Known Allergies Allergy Verified 10/24/20 16:53 Review of Systems ROS Statement: Those systems with pertinent positive or pertinent negative responses have been documented in the HPI. ROS Other: All systems not noted in ROS Statement are negative. Past Medical History Past Medical History: Cancer, Hypertension Additional Past Medical History / Comment(s): skin cancer History of Any Multi-Drug Resistant Organisms: None Reported Past Surgical History: No Surgical Hx Reported Additional Past Anesthesia/Blood Transfusion Reaction / Comment(s): pt. is not sure Past Psychological History: No Psychological Hx Reported Smoking Status: Never smoker Past Alcohol Use History: None Reported Past Drug Use History: None Reported - Past Family History Mother Family Medical History: Cancer Father Family Medical History: Cancer Additional Family Medical History / Comment(s): lung cancer General Exam - General Exam Comments Initial Comments: General: The patient is awake and alert, in no distress, and does not appear acutely ill. Eye: Pupils are equal, round and reactive to light, extra-ocular movements are intact. No nystagmus. There is normal conjunctiva bilaterally. No signs of icterus. Ears, nose, mouth and throat: There are moist mucous membranes and no oral lesions. Neck: The neck is supple, there is no tenderness or JVD. Cardiovascular: There is a regular rate and rhythm. No murmur, rub or gallop is appreciated. Respiratory: Lungs are clear to auscultation, respirations are non-labored, breath sounds are equal. No wheezes, stridor, rales, or rhonchi. Musculoskeletal: Normal ROM, no tenderness. Strength 5/5. Sensation intact. Pulses equal bilaterally 2+. Neurological: A&O x 3. CN II-XII intact, There are no obvious motor or sensory deficits. Coordination appears grossly intact. Speech is normal. Skin: Skin is warm and dry and no rashes or lesions are noted. Psychiatric: Cooperative, appropriate mood & affect, normal judgment. Limitations: no limitations Course Vital Signs 10/24/20 16:47 Temperature 99.0 F Pulse Rate 83 Respiratory 20 Rate Blood Pressure 118/78 O2 Sat by Pulse 99 Oximetry Medical Decision Making - Medical Decision Making Pt requesting covid test, lungs clear. not hypoxic nor toxic appearing. + exposure. covid test pending discussed importance of quarantining. pt discharged appearng well with prescription for prednisone. Disposition Clinical Impression: Loss of taste, Loss of smell, Body aches Disposition: HOME SELF-CARE Condition: Good Instructions (If sedation given, give patient instructions): Upper Respiratory Infection (ED) Additional Instructions: Please use medication as discussed. Please follow-up with family doctor in the next 2 days. Quarantine for the next 10-14 days. Please return to emergency room if the symptoms increase or worsen or for any other concerns. Prescriptions: predniSONE 50 mg PO DAILY 4 Days #4 tab Is patient prescribed a controlled substance at d/c from ED?: No Referrals: Dorian Carrasquillo MD [Primary Care Provider] - 1-2 days Time of Disposition: 17:26
== END 2020-10-24 17:41 | disposition home or self-care (01) ==
LOC: EC 16:35
DX: U07.1 COVID-19 (principal); I10 Essential (primary) hypertension; Z79.899 Other long term (current) drug therapy; Z85.828 Personal history of other malignant neoplasm of skin
CPT/HCPCS: 99283; U0003

== ENCOUNTER → 2021-08-08 | Outpatient (CLI) | payer BC ==
--- NOTE | 2021-08-08 22:19 | CT ---
EXAMINATION TYPE: CT abdomen pelvis w con DATE OF EXAM: 08/08/2021 HISTORY: right sided abdominal pain and bloating CT DLP: 1690.1mGycm Automated Exposure Control for Dose Reduction was Utilized. CONTRAST: CT scan of the abdomen and pelvis is performed with IV Contrast, patient injected with 100 mL of Isov ue 300. COMPARISON: CTA November 09, 2018 FINDINGS: LUNG BASES: Stable 10 x 9 mm subpleural right basilar nodule axial image 12 presumably benign. LIVER/GB: The liver remains diffusely low dense consistent with diffuse fatty infiltration. PANCREAS: Mild fat replaced atrophy involving head and uncinate process. SPLEEN: No significant abnormality is seen. ADRENALS: No significant abnormality is seen. KIDNEYS: Symmetric cortical medullary uptake and excretion without hydronephrosis seen bilaterally. BOWEL: Oral contrast extends to level of right colon making evaluation of distal bowel slightly subop timal. No suspicious small or large bowel dilatation. Mild to moderate wall thickening in the right c olon is present extending to proximal transverse colon. Mild prominence of fecal material near spleni c flexure. Redundant sigmoid colon with few scattered colonic diverticula are identified. No CT evide nce for acute diverticulitis. UTERUS/ADNEXA: Anteverted uterus. Ovaries symmetric and normal in size axial image 67. Scattered left -sided pelvic phleboliths. LYMPH NODES: No greater than 1cm abdominal or pelvic lymph nodes are appreciated. OSSEOUS STRUCTURES: Facet arthropathy lower lumbar spine. OTHER: Somewhat small caliber abdominal aorta redemonstrated. IMPRESSION: Suspect mild uncomplicated acute proximal colitis. Differential includes infectious, infl ammatory, and ischemic etiologies. Correlate clinically.
== END | disposition home or self-care (01) ==
LOC: RADCTMAIN 15:08
PROVIDERS: ATTEND Family Medicine
DX: K63.89 Other specified diseases of intestine (principal)
CPT/HCPCS: 74177; Q9967

== ENCOUNTER → 2021-08-24 | Outpatient (CLI) | payer BC ==
--- NOTE | 2021-08-24 16:33 | CT ---
EXAMINATION TYPE: CT chest wo con DATE OF EXAM: 08/24/2021 COMPARISON: CTA chest November 09, 2018. CT abdomen and pelvis August 08, 2021 HISTORY: Follow up nodule. CT DLP: 600.2 mGycm. Automated Exposure Control for Dose Reduction was Utilized. TECHNIQUE: CT scan of the thorax is performed without IV contrast. FINDINGS: LUNGS: Stable 10 x 9 mm lateral right basilar nodule axial image [address] presumed benign. No new greater than 5 mm nodules or masses. No new consolidation. There is no pleural effusion or pneum othorax seen. The tracheobronchial tree is patent. MEDIASTINUM: Lack of IV contrast is noted to limit evaluation for mediastinal and especially hilar ad enopathy. There are stable slightly enlarged right hilar and subcarinal lymph nodes of slight hyperde nsity on noncontrast CT suggesting degree of calcification. No new greater than 1 cm noncalcified med iastinal lymph nodes. No cardiomegaly or pericardial effusion is seen. OTHER: Moderate to severe multilevel anterior and lateral spurring in the midthoracic spine. IMPRESSION: No new or enlarging nodules or adenopathy.
== END | disposition home or self-care (01) ==
LOC: RADCTMAIN 14:43
PROVIDERS: ATTEND Family Medicine
DX: R91.1 Solitary pulmonary nodule (principal)
CPT/HCPCS: 71250

== ENCOUNTER → 2022-03-01 | Outpatient (CLI) | payer BC ==
--- NOTE | 2022-03-01 21:06 | CT ---
EXAMINATION TYPE: CT chest wo con DATE OF EXAM: 03/01/2022 COMPARISON: CT chest August 24, [address] 2018 HISTORY: Solitary pulmonary nodule. Family history of lung cancer. CT DLP: 441.1 mGycm. Automated Exposure Control for Dose Reduction was Utilized. TECHNIQUE: CT scan of the thorax is performed without IV contrast. FINDINGS: LUNGS: Stable 10 x 9 mm lateral right basilar nodule axial image 40 current study from 2018 CT presum ed benign. No new greater than 5 mm nodules or masses. No new consolidation. There is no pleural eff usion or pneumothorax seen. The tracheobronchial tree remains patent. MEDIASTINUM: Lack of IV contrast is noted to limit evaluation for mediastinal and especially hilar ad enopathy. There are stable slightly enlarged right hilar and subcarinal lymph nodes of slight hyperde nsity on noncontrast CT suggesting degree of calcification redemonstrated. No new greater than 1 cm n oncalcified mediastinal lymph nodes. No cardiomegaly or pericardial effusion is seen. Mild coronary artery calcification redemonstrated. OTHER: Moderate multilevel anterior and lateral spurring in the midthoracic spine is redemonstrated. Liver remains diffusely low dense consistent with diffuse fatty infiltration. IMPRESSION: No new or enlarging nodules or adenopathy. Stable right basilar nodule from 2018 consiste nt with benign etiology.
== END | disposition home or self-care (01) ==
LOC: RADCTMAIN 16:17
PROVIDERS: ATTEND Family Medicine
DX: R91.1 Solitary pulmonary nodule (principal); Z80.1 Family history of malignant neoplasm of trachea, bronchus and lung
CPT/HCPCS: 71250

== ENCOUNTER → 2022-07-31 | Outpatient (CLI) | payer BC ==
--- NOTE | 2022-07-31 08:14 | MM ---
Reason for Exam: Clinical finding. Last mammogram was performed 2 year(s) and 1 month(s) ago. Indicated Problems: Pain of the left side (Focal) for 1 Month(s) : NIPPLE...AND SHOOTING THROUGH BREAST WITHOUT SUPPORT. Patient History: Menarche at age 14. First Full-Term at age 17. Postmenopausal. Patient has history of breast feeding. Other cancer. 04/04/2008, Benign Cyst Aspiration on the right side. Mother had breast cancer, age 62. Risk Values: Chelsea 5 year model risk: 1.9%. NCI Lifetime model risk: 13.8%. Prior Study Comparison: 11/28/2016 Left Diagnostic Mammogram, [facility]. 05/26/2017 Bilateral Screening Mammogram, [facility]. 06/02/2018 Bilateral Screening Mammogram, [facility] 06/16/2018 Left Diagnostic Mammogram, [facility]. 06/17/2019 Bilateral MG diagnostic mammo w CAD RAYSHAWN - 2, [facility]. 06/20/2020 Bilateral MG screening mammo w CAD - 2, [facility]. Tissue Density: There are scattered fibroglandular densities. Findings: Analyzed By CAD. Nodular density upper outer quadrant approximately 14 cm from the nipple. Ultrasound is recommended. No additional masses seen. Stable benign calcifications are noted. Overall Assessment: Incomplete: need additional imaging evaluation, BI-RAD 0 Management: Diagnostic Breast Ultrasound of the left breast. A clinical breast exam by your physician is recommended on an annual basis and results should be correlated with mammographic findings. This exam should not preclude additional follow-up of suspicious palpable abnormalities. Results were given to the patient verbally at the time of exam. Electronically signed and approved by: Philippe Alejandre M.D. Radiologis
--- NOTE | 2022-07-31 08:37 | USB ---
Reason for Exam: Clinical finding. Patient History: Menarche at age 14. First Full-Term at age 17. Postmenopausal. Patient has history of breast feeding. Other cancer. 04/04/2008, Benign Cyst Aspiration on the right side. Mother had breast cancer, age 62. Risk Values: Chelsea 5 year model risk: 1.9%. NCI Lifetime model risk: 13.8%. Technique: Method: Targeted. Prior Study Comparison: 06/16/2018 Left Diagnostic Mammogram, [facility]. 06/17/2019 Bilateral MG diagnostic mammo w CAD RAYSHAWN - 2, [facility]. 06/20/2020 Bilateral MG screening mammo w CAD - 2, [facility]. Findings: The upper outer quadrant of the left breast, the axilla of the left breast and the retroareolar of the left breast were scanned. Too small to characterize 4 mm hypoechoic lesion likely a cyst 3:00 left breast. Overall Assessment: Probably benign, BI-RAD 3 Management: Diagnostic Mammogram of the left breast. A clinical breast exam by your physician is recommended on an annual basis and results should be correlated with mammographic findings. Electronically signed and approved by: Philippe Alejandre M.D. Radiologis
== END | disposition home or self-care (01) ==
LOC: RADMAMWWP 07:31
PROVIDERS: ATTEND Family Medicine
DX: N64.4 Mastodynia (principal); Z78.0 Asymptomatic menopausal state; Z85.89 Personal history of malignant neoplasm of other organs and systems; Z80.3 Family history of malignant neoplasm of breast
CPT/HCPCS: 77066

== ENCOUNTER → 2022-10-17 | Outpatient (CLI) | payer BC ==
[2022-10-17 15:49] VITALS: BP 126/77; PULSE 66; RESP 18; TEMP 98.1
--- NOTE | 2022-10-17 16:20 | P.GSHP ---
History of Present Illness H&P Date: 10/17/22 Chief Complaint: abnormal left breast mammogram Alisia is a 52 year old white female seen in consultation for Dr. Fletcher Ospina regarding a left breast mammorgrphic abnormality. She had a bilateral mammogram on 07-31-22 which showed an area of concern in the left breast. This was followed by an ultrasound which did not show anything of concern in the area. After review with Dr. Appiah he recomended spot compression views be done. The patient feels some discomfort in her left lateral breast. This has been going on for approximately 6 weeks. She did have some fever approximately 6 weeks ago at that time her breast was red and swollen. That has resolved. She does have some continued nodularity that she fails in the lateral aspect of her breast. She did not have any recent trauma of her breast. She's never had any surgery on her breast. Nicotine: none caffiene: pepsi 1/day chocolate/ none BCP: none hormones: none Family history: father: of lung cancer at 33 mother: bilateral breast, uterine cancer Hormonal History: menarche: 13 , breast fed: no; first born at 17 menopause: 46 Surgical History: tubaligation Medical History: HTN ? of a CVA Social History: HEENT: Negative Alcohol: Negative Drugs: Negative - Constitutional Constitutional: Reports sweats - EENT Eyes: denies blurred vision, denies pain Ears: deny: decreased hearing, tinnitus Ears, nose, mouth and throat: Denies headache, Denies sore throat - Breasts Breasts: bilateral: as per HPI - Cardiovascular Comment: new onset of chest pain Cardiovascular: Reports chest pain, Denies shortness of breath - Respiratory Respiratory: Denies cough, Denies 7 - Gastrointestinal Gastrointestinal: Denies abdominal pain, Denies diarrhea, Denies nausea, Denies vomiting - Genitourinary (Female) Genitourinary: Denies dysuria, Denies hematuria - Menstruation Menstruation: Reports postmenopausal - Musculoskeletal Musculoskeletal: Denies myalgias - Integumentary Integumentary: Denies pruritus, Denies rash - Neurological Neurological: Denies numbness, Denies weakness - Psychiatric Psychiatric: Denies anxiety, Denies depression - Endocrine Endocrine: Reports weight change, Denies fatigue - Hematologic/Lymphatic Comment: none - Allergic/Immunologic Allergic/Immunologic: Reports as per HPI Past Medical History Past Medical History: Cancer, Hypertension Additional Past Medical History / Comment(s): skin cancer History of Any Multi-Drug Resistant Organisms: None Reported Past Surgical History: No Surgical Hx Reported Additional Past Anesthesia/Blood Transfusion Reaction / Comment(s): pt. is not sure Past Psychological History: No Psychological Hx Reported Smoking Status: Never smoker Past Alcohol Use History: None Reported Past Drug Use History: None Reported - Past Family History Mother Family Medical History: Cancer Father Family Medical History: Cancer Additional Family Medical History / Comment(s): lung cancer Medications and Allergies Home Medications Medication Instructions Recorded Confirmed Type Hydrochlorothiazide 25 mg PO DAILY 12/28/15 10/17/22 History Losartan Potassium 25 mg PO DAILY 12/28/15 10/17/22 History traZODone HCL [Desyrel] 100 mg PO HS 11/09/18 10/17/22 History Acetaminophen Tab [Tylenol] 650 mg PO Q6HR PRN tab 11/10/18 10/17/22 Rx Allergies Allergy/AdvReac Type Severity Reaction Status Date / Time No Known Allergies Allergy Verified 10/17/22 15:46 Surgical - Exam Vital Signs Temp Pulse Resp BP Pulse Ox 98.1 F 66 18 126/77 98 10/17/22 15:47 10/17/22 15:47 10/17/22 15:47 10/17/22 15:47 10/17/22 15:47 BMI: 37 - General no distress - Eyes normal ocular movement - Neck trachea midline - Respiratory normal respiratory effort - Cardiovascular Rhythm: regular Heart Sounds: normal: S1, S2 - Abdomen umbilical hernia Abdomen: soft, non tender, no guarding, no rigid, no rebound - Integumentary normal turgor - Neurologic no disoriented, no combative - Musculoskeletal normal gait - Psychiatric oriented to time, oriented to person, oriented to place, speech is normal, memory intact Breast Exam: BRA: 42D Inspection: Bilateral grade 3 ptosis Palpation: Right breast: Multiple positional exam fibrocystic changes no discrete dominant masses or nodules of concern Right axilla: No adenopathy of concern Left breast: Multiple positional exam fibrocystic changes no discrete dominant masses or nodules of concern Left axilla: No adenopathy of concern Results Bilateral mammogram and left breast ultrasound reviewed with Dr. Sanchez, the area in the left breast is recommended for additional compression views Assessment and Plan Assessment: Impression: Left breast mastodynia Fibrocystic breast changes Left breast radiographic abnormality Plan: Repeat left breast compression diagnostic mammogram as per Dr. Sanchez life style modifications stopping Pepsi Consider chest pain evaluation as per primary care doctor to rule out cardiac source Cc: Dr. Fletcher Ospina
--- NOTE | 2022-10-17 16:45 | MM ---
Reason for Exam: Additional evaluation requested from prior study. Last screening mammogram was performed 3 month(s) ago. Patient History: Menarche at age 14. First Full-Term at age 17. Postmenopausal. Patient has history of breast feeding. 04/04/2008, Benign Cyst Aspiration on the right side. Mother had breast cancer, age 62. Risk Values: Chelsea 5 year model risk: 1.9%. NCI Lifetime model risk: 13.8%. Prior Study Comparison: 06/17/2019 Bilateral MG diagnostic mammo w CAD RAYSHAWN - 2, [facility]. 06/20/2020 Bilateral MG screening mammo w CAD - 2, [facility]. 07/31/2022 Bilateral MG diagnostic mammo w CAD RAYSHAWN, [facility]. Tissue Density: Left: There are scattered fibroglandular densities. Findings: Analyzed By CAD. There is a lobulated mass posteriorly 2:00 position left breast measuring up to 1.3 cm. While this may be relatively similar to recent priors, it shows gradual enlargement especially when compared to 2013, 2015, 2016 exams. We note that there was no correlate of abnormality seen on the patient's ultrasound exam. Stereotactic core needle biopsy can be performed. Overall Assessment: Suspicious, BI-RAD 4 Management: Stereotactic Core Biopsy of the left breast. Utilizing a lateral approach. No sonographic correlate is identified. Results were given to the patient verbally at the time of exam. Electronically signed and approved by: Shelton Sanchez M.D. Radiologist
== END | disposition home or self-care (01) ==
LOC: WWCWWP 14:54
PROVIDERS: ATTEND Surgery
DX: N64.4 Mastodynia (principal); N63.20 Unspecified lump in the left breast, unspecified quadrant
CPT/HCPCS: 77061; 77065

== ENCOUNTER → 2022-11-15 | Day surgery (SDC) | payer BC ==
[2022-11-15 07:34] VITALS: RESP 16
--- NOTE | 2022-11-15 08:42 | P.PCN ---
Date of Procedure: 11/15/22 Preoperative Diagnosis: Nodularity left breast upper outer quadrant lobulated mass 2 o'clock position measuring up to 1.3 cm/not seen on ultrasound Postoperative Diagnosis: Same Procedure(s) Performed: Left breast stereotactic core biopsy Anesthesia: local Surgeon: Marlene Aguila Pathology: other (Breast tissue) Condition: stable Disposition: same day Indications for Procedure: Lobulated mass 2 o'clock position left breast gradual enlargement stereotactic core biopsy recommended has not seen on ultrasound Operative Findings: Fibrofatty breast tissue Description of Procedure: The patient was taken to the stereotactic core biopsy room following informed consent for stereotactic core biopsy. Risks and benefits of the procedure were discussed with the patient. Alternatives were also noted. The patient was positioned prone on the lowrad table. A type caster film was obtained. CC from above approach was utilized. The lesion of concern was identified. The lesion was targeted. The breast was prepped using Betadine. 20 mL of 1% lidocaine were used to anesthetize the area of concern. A 9-gauge vacuum-assisted core rotating biopsy needle was driven to the correct coordinates. A prefire film was obtained and the needle was noted to be in the correct location. The needle was fired. A post fire film was not obrained. 12 core biopsy specimens were obtained. No radiograph was done of the specimen as there were no calcifications present. A secure marked top at clip was placed. It appeared to be in the correct location. The patient tolerated the procedure in stable condition. The patient will follow up with Dr. Ospina next week. The specimen was sent to pathology.
[2022-11-15 08:47] VITALS: BP 130/82; PULSE 73; TEMP 98.5
--- NOTE | 2022-11-15 09:26 | MM ---
Date of Procedure: 11/15/22 Preoperative Diagnosis: Nodularity left breast upper outer quadrant lobulated mass 2 o'clock position measuring up to 1.3 cm/not seen on ultrasound Postoperative Diagnosis: Same Procedure(s) Performed: Left breast stereotactic core biopsy Anesthesia: local Surgeon: Marlene Aguila Pathology: other (Breast tissue) Condition: stable Disposition: same day Indications for Procedure: Lobulated mass 2 o'clock position left breast gradual enlargement stereotactic core biopsy recommended has not seen on ultrasound Operative Findings: Fibrofatty breast tissue Description of Procedure: The patient was taken to the stereotactic core biopsy room following informed consent for stereotactic core biopsy. Risks and benefits of the procedure were discussed with the patient. Alternatives were also noted. The patient was positioned prone on the lowrad table. A head grower film was obtained. CC from above approach was utilized. The lesion of concern was identified. The lesion was targeted. The breast was prepped using Betadine. 20 mL of 1% lidocaine were used to anesthetize the area of concern. A 9-gauge vacuum-assisted core rotating biopsy needle was driven to the correct coordinates. A prefire film was obtained and the needle was noted to be in the correct location. The needle was fired. A post fire film was not obrained. 12 core biopsy specimens were obtained. No radiograph was done of the specimen as there were no calcifications present. A secure marked top at clip was placed. It appeared to be in the correct location. The patient tolerated the procedure in stable condition. The patient will follow up with Dr. Ospina next week. The specimen was sent to pathology. [facility]
== END ==
LOC: RADMAMWWP 07:20
PROVIDERS: ATTEND Surgery
DX: N60.82 Other benign mammary dysplasias of left breast (principal); N63.21 Unspecified lump in the left breast, upper outer quadrant
CPT/HCPCS: 88305; 19081; A4648; J2001

== ENCOUNTER → 2022-12-20 | Outpatient (CLI) | payer BC ==
--- NOTE | 2022-12-27 08:22 | HM ---
HOLTER MONITOR REPORT STUDY PERFORMED: A 24-hour Holter. INDICATION: Atypical chest pain. Underlying rhythm is sinus with an average heart rate of 82 beats per minute. Heart rate varied from 44 beats per minute to 128 beats per minute. There were no episodes of sustained ventricular or supraventricular tachyarrhythmias. There were no episodes of more than 2-second pauses. CONCLUSION: This 24-hour Holter revealed sinus rhythm without significant tachy or bradyarrhythmias. MMODL / IJN: [id number] /
== END | disposition home or self-care (01) ==
LOC: RADECHMAIN 07:48
PROVIDERS: ATTEND Family Medicine
DX: R07.9 Chest pain, unspecified (principal)
CPT/HCPCS: 93225; 93226

== ENCOUNTER → 2023-05-23 | Outpatient (CLI) | payer BC ==
--- NOTE | 2022-11-19 15:07 | P.PN ---
Progress Note - Text Progress Note Date: 11/19/22 Patient was called with stero biopsy results. They are benign concordant. She is doing well post procedure. She will have a repeat left breast mammogram and appointment in 6 months. CC: Dr. Fletcher Ospina
--- NOTE | 2023-05-23 09:58 | P.PN ---
Subjective Progress Note Date: 05/23/23 Principal diagnosis: Fibrocystic breast changes Alisia is a 52 year old white female seen in consultation for Dr. Fletcher Ospina regarding a left breast mammorgrphic abnormality. She had a bilateral mammogram on 07-31-22 which showed an area of concern in the left breast. This was followed by an ultrasound which did not show anything of concern in the area. After review with Dr. Appiah he recomended spot compression views be done. After these were done stereotactic core biopsy of the left breast was recommended. This was performed on [id number]. This was felt to be benign and concordant. At this time she is due for a repeat left breast mammogram. The patient does not complain of any new lumps masses or nodules of concern in either breast. She is not complaining of any pain in her breast at this time. Nicotine: none caffiene: pepsi 1/day chocolate/ none BCP: none hormones: none Family history: father: of lung cancer at 33 mother: bilateral breast, uterine cancer Hormonal History: menarche: 13 , breast fed: no; first born at 17 menopause: 46 Surgical History: tubaligation Medical History: HTN ? of a CVA Social History: HEENT: Negative Alcohol: Negative Drugs: Negative - Constitutional Constitutional: Reports sweats - EENT Eyes: denies blurred vision, denies pain Ears: deny: decreased hearing, tinnitus Ears, nose, mouth and throat: Denies headache, Denies sore throat - Breasts Breasts: bilateral: as per HPI - Cardiovascular Comment: new onset of chest pain Cardiovascular: Reports chest pain, Denies shortness of breath - Respiratory Respiratory: Denies cough - Gastrointestinal Gastrointestinal: Denies abdominal pain, Denies diarrhea, Denies nausea, Denies vomiting - Genitourinary (Female) Genitourinary: Denies dysuria, Denies hematuria - Menstruation Menstruation: Reports postmenopausal - Musculoskeletal Musculoskeletal: Denies myalgias - Integumentary Integumentary: Denies pruritus, Denies rash - Neurological Neurological: Denies numbness, Denies weakness - Psychiatric Psychiatric: Denies anxiety, Denies depression - Endocrine Endocrine: Reports weight change, Denies fatigue - Hematologic/Lymphatic Comment: none - Allergic/Immunologic Allergic/Immunologic: Reports as per HPI Past Medical History Past Medical History: Cancer, Hypertension Additional Past Medical History / Comment(s): skin cancer History of Any Multi-Drug Resistant Organisms: None Reported Past Surgical History: No Surgical Hx Reported Additional Past Anesthesia/Blood Transfusion Reaction / Comment(s): pt. is not sure Past Psychological History: No Psychological Hx Reported Smoking Status: Never smoker Past Alcohol Use History: None Reported Past Drug Use History: None Reported - Past Family History Mother Family Medical History: Cancer Father Family Medical History: Cancer Additional Family Medical History / Comment(s): lung cancer Medications and Allergies Home Medications Medication Instructions Recorded Confirmed Type Hydrochlorothiazide 25 mg PO DAILY 12/28/15 10/17/22 History Losartan Potassium 25 mg PO DAILY 12/28/15 10/17/22 History traZODone HCL [Desyrel] 100 mg PO HS 11/09/18 10/17/22 History Acetaminophen Tab [Tylenol] 650 mg PO Q6HR PRN tab 11/10/18 10/17/22 Rx Allergies Allergy/AdvReac Type Severity Reaction Status Date / Time No Known Allergies Allergy Verified 10/17/22 15:46 Objective - Constitutional General appearance: Present: cooperative - EENT Eyes: Present: EOMI ENT: Present: hearing grossly normal - Neck Neck: Present: normal ROM - Respiratory Respiratory: bilateral: CTA - Cardiovascular Rhythm: regular Heart sounds: normal: S1, S2 - Gastrointestinal General gastrointestinal: Present: soft - Integumentary Integumentary: Present: normal turgor - Musculoskeletal Musculoskeletal: Present: gait normal - Psychiatric Psychiatric: Present: A&O x's 3, appropriate affect, intact judgment & insight - Additional findings Additional findings: Breast Exam: BRA: 42D Inspection: Bilateral grade 3 ptosis Palpation: Right breast: Multiple positional exam fibrocystic changes no discrete dominant masses or nodules of concern Right axilla: No adenopathy of concern Left breast: Multiple positional exam fibrocystic changes no discrete dominant masses or nodules of concern Left axilla: No adenopathy of concern Assessment and Plan Assessment: Impression: Left breast mastodynia resolved Fibrocystic breast changes Left breast radiographic abnormality core biopsy on [id number] benign concordant Plan: Repeat left breast mammogram with appointment following this Cc: Dr. Fletcher Ospina
[2023-05-23 09:59] VITALS: BP 127/84; PULSE 80; RESP 17; TEMP 98.3
== END ==
LOC: WWCWWP 09:32
PROVIDERS: ATTEND Surgery
DX: N60.12 Diffuse cystic mastopathy of left breast (principal); Z86.73 Personal history of transient ischemic attack (TIA), and cerebral infarction without residual deficits; Z80.1 Family history of malignant neoplasm of trachea, bronchus and lung; Z85.828 Personal history of other malignant neoplasm of skin; I10 Essential (primary) hypertension

== ENCOUNTER → 2023-05-26 | Outpatient (CLI) | payer BC ==
--- NOTE | 2023-05-26 10:57 | MM ---
Reason for Exam: Follow-up at short interval from prior study. Last screening mammogram was performed 10 month(s) ago. Patient History: Menarche at age 14. First Full-Term at age 17. Postmenopausal. Patient has history of breast feeding. 11/15/2022, MG stereo VAD BX LT on the Left side. 04/04/2008, Benign Cyst Aspiration on the right side. Mother had breast cancer, age 62. Risk Values: Chelsea 5 year model risk: 2.3%. NCI Lifetime model risk: 16.1%. Prior Study Comparison: 06/20/2020 Bilateral MG screening mammo w CAD - 2, [facility]. 07/31/2022 Bilateral MG diagnostic mammo w CAD [facility], [facility]. 10/17/2022 Left MG 3D work up w/cad LT, [facility]. Tissue Density: Left: There are scattered fibroglandular densities. Findings: Analyzed By CAD. No new suspicious calcifications within the left breast. No new suspicious masses. Stable lobulated mass posterior to the clot position left breast measuring up to 1.2 cm. Biopsy clip appears to be in stable position posterior and inferior to the mass. Overall Assessment: Probably benign, BI-RAD 3 Management: Diagnostic Mammogram of both breasts in 6 months. A clinical breast exam by your physician is recommended on an annual basis and results should be correlated with mammographic findings. This exam should not preclude additional follow-up of suspicious palpable abnormalities. Results were given to the patient verbally at the time of exam. Note on Chelsea scores and lifetime risk: 1. A Chelsea score greater than 3% is considered moderate risk. If this is the case, consider specialist referral to assess eligibility for a risk reducing agent. If overall lifetime risk for the development of breast cancer is 20% or higher, the patient may qualify for future screening with alternating mammogram and breast MRI. Electronically signed and approved by: Jae Shah D.O.
== END | disposition home or self-care (01) ==
LOC: RADMAMWWP 10:22
PROVIDERS: ATTEND Surgery
DX: R92.8 Other abnormal and inconclusive findings on diagnostic imaging of breast (principal); Z78.0 Asymptomatic menopausal state; Z80.3 Family history of malignant neoplasm of breast
CPT/HCPCS: 77061; 77065

== ENCOUNTER → 2023-11-25 | Outpatient (CLI) | payer BC ==
--- NOTE | 2023-11-25 15:07 | MM ---
Reason for Exam: Follow-up at short interval from prior study. Last mammogram was performed 1 year(s) and 4 month(s) ago. Patient History: Menarche at age 14. First Full-Term at age 17. Postmenopausal. Patient has history of breast feeding. 11/15/2022, MG stereo VAD BX LT on the Left side. 04/04/2008, Benign Cyst Aspiration on the right side. Mother had breast cancer, age 62. Risk Values: Chelsea 5 year model risk: 2.4%. NCI Lifetime model risk: 15.8%. Prior Study Comparison: 06/02/2018 Bilateral Screening Mammogram, [facility]. 07/31/2022 Bilateral MG diagnostic mammo w CAD [facility]SHA[facility], [facility]. 10/17/2022 Left MG 3D work up w/cad LT, [facility]. 05/26/2023 Left MG 3D diag mammo w/cad LT, [facility]. Tissue Density: There are scattered fibroglandular densities. Findings: Analyzed By CAD. Now chronic nodularity posterior upper-outer quadrant left breast. Adjacent microclip from prior biopsy. No significant change from prior exams. Overall Assessment: Benign, BI-RAD 2 Management: Screening Mammogram of both breasts in 1 year. . Results were given to the patient verbally at the time of exam. Patient should continue monthly self-breast exams. A clinical breast exam by your physician is recommended on an annual basis. This exam should not preclude additional follow-up of suspicious palpable abnormalities. Note on Chelsea scores and lifetime risk: 1. A Chelsea score greater than 3% is considered moderate risk. If this is the case, consider specialist referral to assess eligibility for a risk reducing agent. 2. If overall lifetime risk for the development of breast cancer is 20% or higher, the patient may qualify for future screening with alternating mammogram and breast MRI. Electronically signed and approved by: Shelton Sanchez M.D. Radiologist
== END | disposition home or self-care (01) ==
LOC: RADMAMWWP 10:56
PROVIDERS: ATTEND Family Medicine
DX: R92.323 Mammographic fibroglandular density, bilateral breasts (principal); N60.19 Diffuse cystic mastopathy of unspecified breast; Z78.0 Asymptomatic menopausal state; Z80.3 Family history of malignant neoplasm of breast
CPT/HCPCS: 77062; 77066

== ENCOUNTER 2024-01-20 08:43 | Emergency (ER) | payer BC ==
--- NOTE | 2024-01-20 09:21 | ED ---
General Adult HPI - General Chief complaint: Abdominal Pain Stated complaint: abd pain,Hernia Time Seen by Provider: 01/20/24 09:00 Source: patient, RN notes reviewed, old records reviewed Mode of arrival: ambulatory Limitations: no limitations - History of Present Illness Initial comments: This is a 53-year-old female presents to the emergency department stating she had 2 or 3 days of pain. Patient states that she has an umbilical hernia but the pain is also in the right lower quadrant. Patient states it started around the umbilicus but has shifted and now it appears to be in both places. Patient denies any nausea vomiting diarrhea. Patient is any fever or chills. Patient has any dysuria hematuria urinary frequency. Patient states the pain is getting progressively worse. - Related Data Home Medications Medication Instructions Recorded Confirmed Hydrochlorothiazide 25 mg PO DAILY 12/28/15 01/20/24 Losartan Potassium 25 mg PO DAILY 12/28/15 01/20/24 traZODone HCL [Desyrel] 100 mg PO HS 11/09/18 01/20/24 Omeprazole 20 mg PO DAILY 01/20/24 01/20/24 Previous Rx's Medication Instructions Recorded Ketorolac [Toradol] 10 mg PO Q6HR #15 tab 01/20/24 Allergies Allergy/AdvReac Type Severity Reaction Status Date / Time No Known Allergies Allergy Verified 01/20/24 11:05 Review of Systems ROS Statement: Those systems with pertinent positive or pertinent negative responses have been documented in the HPI. ROS Other: All systems not noted in ROS Statement are negative. Past Medical History Past Medical History: Cancer, Hypertension Additional Past Medical History / Comment(s): skin cancer, Hernia History of Any Multi-Drug Resistant Organisms: None Reported Past Surgical History: No Surgical Hx Reported Additional Past Anesthesia/Blood Transfusion Reaction / Comment(s): pt. is not sure Past Psychological History: No Psychological Hx Reported Smoking Status: Never smoker Past Alcohol Use History: None Reported Past Drug Use History: None Reported - Past Family History Mother History Unknown: Yes Family Medical History: Cancer Additional Family Medical History / Comment(s): breast uterin Father Family Medical History: Cancer Additional Family Medical History / Comment(s): lung cancer General Exam - General Exam Comments Initial Comments: GENERAL: Patient is well-developed and well-nourished. Patient is nontoxic and well- hydrated and is in moderate distress. ENT: Neck is soft and supple. No significant lymphadenopathy is noted. Oropharynx is clear. Moist mucous membranes. Neck has full range of motion without eliciting any pain. EYES: The sclera were anicteric and conjunctiva were pink and moist. Extraocular movements were intact and pupils were equal round and reactive to light. Eyelids were unremarkable. PULMONARY: Unlabored respirations. Good breath sounds bilaterally. No audible rales rhonchi or wheezing was noted. CARDIOVASCULAR: There is a regular rate and rhythm without any murmurs gallops or rubs. ABDOMEN: Patient has pain around the umbilicus but also has significant pain in the right lower quadrant. Patient has a small umbilical hernia which is easily reducible SKIN: Skin is clear with no lesions or rashes and otherwise unremarkable. NEUROLOGIC: Patient is alert and oriented x3. Cranial nerves II through XII are grossly in tact. Motor and sensory are also intact. Normal speech, volume and content. Symmetrical smile. MUSCULOSKELETAL: Normal extremities with adequate strength and full range of motion. LYMPHATICS: No significant lymphadenopathy is noted PSYCHIATRIC: Normal psychiatric evaluation. Limitations: no limitations Course Vital Signs 01/20/24 01/20/24 01/20/24 08:56 10:10 11:56 Temperature 98.3 F Pulse Rate 75 62 64 Respiratory 18 18 18 Rate Blood Pressure 135/78 119/68 114/61 O2 Sat by Pulse 96 96 96 Oximetry Medical Decision Making - Medical Decision Making Was pt. sent in by a medical professional or institution (, PA, WELLNESS CONSULTANT, urgent care, hospital, or [place] health care facility...) When possible be specific @ -No Did you speak to anyone other than the patient for history (EMS, parent, family, police, friend...)? What history was obtained from this source @ -No Did you review nursing and triage notes (agree or disagree)? Why? @ -I reviewed and agree with nursing and triage notes Were old charts reviewed (outside hosp., previous admission, EMS record, old EKG, old radiological studies, urgent care reports/EKG's, [place] health care facility records)? Report findings @ -No old charts were reviewed Differential Diagnosis (chest pain, altered mental status, abdominal pain women, abdominal pain men, vaginal bleeding, weakness, fever, dyspnea, syncope, headac he, dizziness, GI bleed, back pain, seizure, CVA, palpatations, mental health, musculoskeletal)? @ -Differential Abdominal Pain Women: Appendicitis, Cholecystitis, diverticulosis, ischemic bowel, pancreatitis, hepatitis, UTI, gastroenteritis, AAA, incarcerated hernia, bowel obstruction, constipation, inflammatory bowel, hepatitis, peptic ulcer disease, splenic infarction, perforated viscus, vulvitis, ovarian torsion, PID, kidney stone, placenta abruption, this is not meant to be an all-inclusive list EKG interpreted by me (3pts min.). @ -As above X-rays interpreted by me (1pt min.). @ -None done CT interpreted by me (1pt min.). @ -CT scan of the abdomen shows no acute abnormality. U/S interpreted by me (1pt. min.). @ -None done What testing was considered but not performed or refused? (CT, X-rays, U/S, labs)? Why? @ -None What meds were considered but not given or refused? Why? @ -None Did you discuss the management of the patient with other professionals (professionals i.e. , PA, WELLNESS CONSULTANT, lab, RT, psych nurse, criminal justice social worker, conservation engineer, teacher, information officer, casework manager)? Give summary @ -No Was smoking cessation discussed for >3mins.? @ -No Was critical care preformed (if so, how long)? @ -No Were there social determinants of health that impacted care today? How? (Homelessness, low income, unemployed, alcoholism, drug addiction, transportation, low edu. Level, literacy, decrease access to med. care, care home, rehab)? @ -No Was there de-escalation of care discussed even if they declined (Discuss DNR or withdrawal of care, Hospice)? DNR status @ -No What co-morbidities impacted this encounter? (DM, HTN, Smoking, COPD, CAD, Cancer, CVA, ARF, Chemo, Hep., AIDS, mental health diagnosis, sleep apnea, morbid obesity)? @ -None Was patient admitted / discharged? Hospital course, mention meds given and route, prescriptions, significant lab abnormalities, going to OR and other pert inent info. @ -I went back in the room and reevaluated the patient she was feeling better however on reexamination of the belly she still had some tenderness around the periumbilical region as well as the right lower quadrant. She had no pelvic tenderness at all. Patient is comfortable going home and she will follow-up with her primary medical care doctor or return if there are any new or worsening symptoms Undiagnosed new problem with uncertain prognosis? @ -No Drug Therapy requiring intensive monitoring for toxicity (Heparin, Nitro, Insulin, Cardizem)? @ -No Were any procedures done? @ -No Diagnosis/symptom? @ -Abdominal pain Acute, or Chronic, or Acute on Chronic? @ -Acute Uncomplicated (without systemic symptoms) or Complicated (systemic symptoms)? @ -Complicated Side effects of treatment? @ -No Exacerbation, Progression, or Severe Exacerbation? @ -No Poses a threat to life or bodily function? How? (Chest pain, [place], [place], pneumonia, PE, COPD, DKA, ARF, appy, cholecystitis, CVA, Diverticulitis, Homicidal, Suicidal, threat to staff... and all critical care pts) @ -No - Lab Data Result diagrams: 01/20/24 09:44 01/20/24 09:44 Lab Results 01/20/24 01/20/24 01/20/24 Range/Units 09:44 09:44 09:44 WBC 7.5 (3.8-10.6) k/uL RBC 4.30 (3.80-5.40) m/uL Hgb 13.5 (11.4-16.0) gm/dL Hct 40.7 (34.0-46.0) % MCV 94.7 (80.0-100.0) fL MCH 31.4 (25.0-35.0) pg MCHC 33.1 (31.0-37.0) g/dL RDW 13.2 (11.5-15.5) % Plt Count 247 (150-450) k/uL MPV 7.0 Neutrophils % 64 % Lymphocytes % 28 % Monocytes % 4 % Eosinophils % 2 % Basophils % 1 % Neutrophils # 4.8 (1.3-7.7) k/uL Lymphocytes # 2.1 (1.0-4.8) k/uL Monocytes # 0.3 (0-1.0) k/uL Eosinophils # 0.2 (0-0.7) k/uL Basophils # 0.1 (0-0.2) k/uL Sodium 139 (137-145) mmol/L Potassium 4.0 (3.5-5.1) mmol/L Chloride 103 (98-107) mmol/L Carbon Dioxide 29 (22-30) mmol/L Anion Gap 7 mmol/L BUN 17 (7-17) mg/dL Creatinine 0.84 (0.52-1.04) mg/dL Est GFR (CKD-EPI)AfAm >90 (>60 ml/min/1.73 sqM) Est GFR (CKD-EPI)NonAf 78 (>60 ml/min/1.73 sqM) Glucose 103 H (74-99) mg/dL Plasma Lactic Acid Carlo 1.0 (0.7-2.0) mmol/L Calcium 10.0 (8.4-10.2) mg/dL Total Bilirubin 1.0 (0.2-1.3) mg/dL AST 25 (14-36) U/L ALT 22 (4-34) U/L Alkaline Phosphatase 105 (38-126) U/L Total Protein 7.4 (6.3-8.2) g/dL Albumin 4.5 (3.5-5.0) g/dL Amylase 48 (30-110) U/L Lipase 67 (23-300) U/L Urine Color Urine Appearance (Clear) Urine pH (5.0-8.0) Ur Specific Dorena (1.001-1.035) Urine Protein (Negative) Urine Glucose (UA) (Negative) Urine Ketones (Negative) Urine Blood (Negative) Urine Nitrite (Negative) Urine Bilirubin (Negative) Urine Urobilinogen (<2.0) mg/dL Ur Leukocyte Esterase (Negative) Urine RBC (0-5) /hpf Urine WBC (0-5) /hpf Ur Squamous Epith Cells (0-4) /hpf Urine Mucus (None) /hpf Urine Yeast (Budding) (None) /hpf 01/20/24 Range/Units 10:00 WBC (3.8-10.6) k/uL RBC (3.80-5.40) m/uL Hgb (11.4-16.0) gm/dL Hct (34.0-46.0) % MCV (80.0-100.0) fL MCH (25.0-35.0) pg MCHC (31.0-37.0) g/dL RDW (11.5-15.5) % Plt Count (150-450) k/uL MPV Neutrophils % % Lymphocytes % % Monocytes % % Eosinophils % % Basophils % % Neutrophils # (1.3-7.7) k/uL Lymphocytes # (1.0-4.8) k/uL Monocytes # (0-1.0) k/uL Eosinophils # (0-0.7) k/uL Basophils # (0-0.2) k/uL Sodium (137-145) mmol/L Potassium (3.5-5.1) mmol/L Chloride (98-107) mmol/L Carbon Dioxide (22-30) mmol/L Anion Gap mmol/L BUN (7-17) mg/dL Creatinine (0.52-1.04) mg/dL Est GFR (CKD-EPI)AfAm (>60 ml/min/1.73 sqM) Est GFR (CKD-EPI)NonAf (>60 ml/min/1.73 sqM) Glucose (74-99) mg/dL Plasma Lactic Acid Carlo (0.7-2.0) mmol/L Calcium (8.4-10.2) mg/dL Total Bilirubin (0.2-1.3) mg/dL AST (14-36) U/L ALT (4-34) U/L Alkaline Phosphatase (38-126) U/L Total Protein (6.3-8.2) g/dL Albumin (3.5-5.0) g/dL Amylase (30-110) U/L Lipase (23-300) U/L Urine Color Light Yellow Urine Appearance Cloudy H (Clear) Urine pH 8.0 (5.0-8.0) Ur Specific Dorena 1.020 (1.001-1.035) Urine Protein Negative (Negative) Urine Glucose (UA) Negative (Negative) Urine Ketones Negative (Negative) Urine Blood Negative (Negative) Urine Nitrite Negative (Negative) Urine Bilirubin Negative (Negative) Urine Urobilinogen <2.0 (<2.0) mg/dL Ur Leukocyte Esterase Negative (Negative) Urine RBC 5 (0-5) /hpf Urine WBC 2 (0-5) /hpf Ur Squamous Epith Cells 7 H (0-4) /hpf Urine Mucus Occasional H (None) /hpf Urine Yeast (Budding) Occasional H (None) /hpf Disposition Clinical Impression: Abdominal pain Disposition: HOME SELF-CARE Instructions (If sedation given, give patient instructions): Abdominal Pain (ED) Prescriptions: Ketorolac [Toradol] 10 mg PO Q6HR #15 tab Is patient prescribed a controlled substance at d/c from ED?: No Referrals: Fletcher Ospina MD [Primary Care Provider] - 1-2 days Time of Disposition: 12:48
[2024-01-20] MEDS: SODIUM CHLORIDE 0.9% 1,000 ML IV STA (09:37)
[2024-01-20] MEDS: HYDROmorphone 0.5 MG/0.5 ML SYRINGE IVP STA (10:00)
[2024-01-20 10:11] LABS: Basophils # (A) 0.1 k/uL (0-0.2); Basophils % (A) 1 %; Eosinophils # (A) 0.2 k/uL (0-0.7); Eosinophils % (A) 2 %; HCT 40.7 % (34.0-46.0); HGB 13.5 gm/dL (11.4-16.0); Lymphocytes # (A) 2.1 k/uL (1.0-4.8); Lymphocytes % (A) 28 %; MCH 31.4 pg (25.0-35.0); MCHC 33.1 g/dL (31.0-37.0); MCV 94.7 fL (80.0-100.0); Monocytes # (A) 0.3 k/uL (0-1.0); Monocytes % (A) 4 %; Neutrophils # (A) 4.8 k/uL (1.3-7.7); Neutrophils % (A) 64 %; Platelet Count 247 k/uL (150-450); RDW 13.2 % (11.5-15.5); WBC 7.5 k/uL (3.8-10.6)
[2024-01-20] MEDS: KETOROLAC 15 MG/ML 1 ML VIAL IVP STA (10:12)
[2024-01-20 10:23] LABS: ALT 22 U/L (4-34); AST 25 U/L (14-36); African American GFR (CKD) >90 (>60 ml/min/1.73 sqM); Albumin 4.5 g/dL (3.5-5.0); Alkaline Phosphatase 105 U/L (38-126); Amylase 48 U/L (30-110); Anion Gap 7 mmol/L; Blood Urea Nitrogen 17 mg/dL (7-17); Carbon Dioxide 29 mmol/L (22-30); Chloride 103 mmol/L (98-107); Glucose 103 mg/dL (74-99); Lipase 67 U/L (23-300); Non-African American GFR(CKD) 78 (>60 ml/min/1.73 sqM); Sodium 139 mmol/L (137-145); Total Protein 7.4 g/dL (6.3-8.2)
[2024-01-20 10:46] LABS: Appearance,Urine Cloudy (Clear); Bilirubin,Urine Negative (Negative); Blood,Urine Negative (Negative); Budding Yeast,Urine Occasional /hpf; Color,Urine Light Yellow; Glucose,Urine (UA) Negative (Negative); Ketones,Urine Negative (Negative); Leukocyte Esterase,Urine Negative (Negative); Mucus,Urine Occasional /hpf; Nitrite,Urine Negative (Negative); Protein,Urine Negative (Negative); RBC,Urine 5 /hpf (0-5); Squamous Epithelial Cell,Urine 7 /hpf (0-4); Urobilinogen,Urine <2.0 mg/dL (<2.0); WBC,Urine 2 /hpf (0-5)
--- NOTE | 2024-01-20 12:15 | CT ---
EXAMINATION TYPE: CT abdomen pelvis w con CT DLP: 1348.8 mGycm, Automated exposure control for dose reduction was used. DATE OF EXAM: 01/20/2024 11:36 AM COMPARISON: 11/09/2018 CT angiogram chest abdomen pelvis CLINICAL INDICATION:Female, 53 years old with history of abdominal pain; TECHNIQUE: Axial CT of the abdomen and pelvis. Sagittal and coronal reformats were created on a [employer] workstation. Contrast used: 100 mL of Isovue 300 , (none if empty) Oral contrast used: (none if empty) FINDINGS: LOWER CHEST: Stable 10 mm subpleural nodule in the right lung base since 2018, considered benign. ABDOMEN LIVER: Unremarkable GALLBLADDER AND BILE DUCTS: Unremarkable gallbladder. No biliary ductal dilatation. PANCREAS: Unremarkable. SPLEEN: Unremarkable. ADRENAL GLANDS: Unremarkable. KIDNEYS AND URETERS: Kidneys enhance symmetrically. No evidence of hydronephrosis or visible renal ca lculus. The ureters are unremarkable. PELVIS BLADDER: Unremarkable REPRODUCTIVE: Uterus and adnexal regions appear grossly unremarkable, though not well assessed by CT. ABDOMEN & PELVIS STOMACH AND BOWEL: Stomach and small bowel are nondistended, no evidence of obstruction. Small focu s of gas may represent diverticulum or possible ulceration along the proximal horizontal segment of t he duodenum. Normal appendix. Moderate colonic stool. Several distal colonic diverticula without sign s of inflammation. PERITONEUM/RETROPERITONEUM: No evidence of pneumoperitoneum or free fluid. VASCULATURE: Mild atherosclerotic calcifications are present throughout the abdominal aorta and its b ranches. No evidence of aortic aneurysm. Portal veins are enhancing. Splenic vein is patent. LYMPH NODES: No gross evidence for lymphadenopathy. SOFT TISSUE/ABDOMINAL WALL: Unremarkable MUSCULOSKELETAL: No acute osseous abnormalities. Mild/moderate disc degeneration changes are present throughout the thoracolumbar spine. IMPRESSION: 1. Small duodenal diverticulum versus ulceration along the horizontal segment. Upper GI may be of be nefit. 2. Otherwise no acute abnormality in the abdomen or pelvis.
[2024-01-20 13:45] VITALS: BP 131/74; PULSE 56; RESP 16; TEMP 98.6
== END 2024-01-20 12:57 | disposition home or self-care (01) ==
LOC: EC 08:43
DX: R10.31 Right lower quadrant pain (principal); I10 Essential (primary) hypertension; Z79.899 Other long term (current) drug therapy
CPT/HCPCS: 99284 ×2; 96374 ×2; 96361 ×3; 36415; 80053; 82150; 83605; 83690; 85025; 81001; 74177; J1885; Q9967

== ENCOUNTER 2024-06-28 05:15 | Inpatient (IN) | payer BC ==
--- NOTE | 2024-06-28 05:33 | ED ---
Chest Pain HPI - General Source: patient Mode of arrival: ambulatory Limitations: no limitations - History of Present Illness MD Complaint: chest pain Onset/Timin -: hour(s) Onset: during rest Pain Location: substernal Pain Radiation: LUE, back Severity: severe Quality: aching Consistency: constant Improves With: nothing Worsens With: nothing Anginal Symptoms: nausea, vomiting Treatments Prior to Arrival: none <Binh Mariee - Last Filed: 06/28/24 05:30> <Sriram Gordon - Last Filed: 06/28/24 08:48> - General Chief Complaint: Chest Pain Stated Complaint: chest pain vomiting Time Seen by Provider: 06/28/24 05:21 - Related Data Home Medications Medication Instructions Recorded Confirmed Hydrochlorothiazide 25 mg PO DAILY 12/28/15 01/20/24 Losartan Potassium 25 mg PO DAILY 12/28/15 01/20/24 traZODone HCL [Desyrel] 100 mg PO HS 11/09/18 01/20/24 Omeprazole 20 mg PO DAILY 01/20/24 01/20/24 Previous Rx's Medication Instructions Recorded Ketorolac [Toradol] 10 mg PO Q6HR #15 tab 01/20/24 Allergies Allergy/AdvReac Type Severity Reaction Status Date / Time No Known Allergies Allergy Verified 06/28/24 05:18 Review of Systems ROS Other: All systems not noted in ROS Statement are negative. Constitutional: Denies: fever, chills Respiratory: Denies: cough, dyspnea Cardiovascular: Reports: chest pain. Denies: palpitations, orthopnea, edema, syncope Gastrointestinal: Reports: nausea, vomiting. Denies: abdominal pain, diarrhea, hematemesis Genitourinary: Denies: dysuria, hematuria Musculoskeletal: Denies: back pain Skin: Denies: rash Neurological: Denies: headache, weakness <Binh Mariee - Last Filed: 06/28/24 05:30> ROS Other: All systems not noted in ROS Statement are negative. <Sriram Gordno - Last Filed: 06/28/24 08:48> ROS Statement: Those systems with pertinent positive or pertinent negative responses have been documented in the HPI. EKG Findings - EKG Results: EKG: interpreted by ERMD, sinus rhythm, normal axis EKG shows: bradycardia (57 bpm) - Blocks, [place], Hypertrophy, ST Abn: QRS axis and voltage: low voltage (<0.5 MV total QRS and <1.0 MV in each precordial lead) Repolarization changes or abnormalities: nonspecific abnormality, ST segment, and/or T wave <Binh Mariee Filed: 06/28/24 05:30> Past Medical History Past Medical History: Cancer, Hypertension Additional Past Medical History / Comment(s): skin cancer, Hernia, diverticulitis History of Any Multi-Drug Resistant Organisms: None Reported Past Surgical History: Tubal Ligation Additional Past Anesthesia/Blood Transfusion Reaction / Comment(s): pt. is not sure Past Psychological History: No Psychological Hx Reported Smoking Status: Never smoker Past Alcohol Use History: None Reported Past Drug Use History: None Reported - Past Family History Mother History Unknown: Yes Family Medical History: Cancer Additional Family Medical History / Comment(s): breast uterin Father Family Medical History: Cancer Additional Family Medical History / Comment(s): lung cancer <Binh Mariee Filed: 06/28/24 05:30> General Exam Limitations: no limitations General appearance: alert, in no apparent distress Head exam: Present: atraumatic, normocephalic Eye exam: Present: normal appearance. Absent: scleral icterus, conjunctival injection Neck exam: Present: normal inspection Respiratory exam: Present: normal lung sounds bilaterally. Absent: respiratory distress, wheezes, rales, rhonchi, stridor, accessory muscle use Cardiovascular Exam: Present: regular rate, normal rhythm, normal heart sounds. Absent: systolic murmur, diastolic murmur, rubs, gallop GI/Abdominal exam: Present: soft, tenderness (Epigastric and right upper quadrant). Absent: distended, rebound, rigid, mass, pulsatile mass, hernia Extremities exam: Present: normal inspection, normal capillary refill. Absent: pedal edema, calf tenderness Back exam: Present: normal inspection. Absent: CVA tenderness (R), CVA tenderness (L) Neurological exam: Present: alert Skin exam: Present: warm, dry, intact, normal color. Absent: rash <Binh Mariee Filed: 06/28/24 05:30> Course Vital Signs 06/28/24 06/28/24 05:18 08:15 Temperature 97.0 F L 97.5 F L Pulse Rate 55 L 60 Respiratory 18 16 Rate Blood Pressure 129/70 114/65 O2 Sat by Pulse 98 95 Oximetry Chest Pain [facility] <Sriram Gordon - Last Filed: 06/28/24 08:48> - [facility] Patient is a 54-year-old female signed out to me pending results of gallbladder ultrasound. Briefly, patient experienced sudden onset right upper quadrant abdominal pain/ lower right chest pain at 12:30 AM this morning. No history of abdominal surgeries other than tubal ligation. No other past medical history other than hypertension. States she began experiencing nausea as well as multiple bouts of emesis and is not having bilious emesis. Nonbloody emesis. No constipation or diarrhea. No fevers or chills. The nausea has mostly subsided but is still experiencing pain at this time. So far, patient's laboratory studies are unremarkable including D-dimer that is unremarkable, troponin that is undetectable. EKG and chest x-ray were interpreted by the previous physician. Patient was pending gallbladder ultrasound. Gallbladder ultrasound is interpreted by myself reveals findings concerning for acute cholecystitis including hydropic gallbladder with wall thickening as well as positive sonographic Amato sign. When I evaluated patient, patient had right upper quadrant abdominal tenderness to palpation, which clinically correlates these findings. Patient will be made NPO. Based off recent blood culture recommendations from our hospital, blood cultures were not sent as this is a uncomplicated cholecystitis. Patient started on Zosyn as well as mainte nance IV fluids with pain medications and nausea medications. Patient was in agreement this plan. [facility] agreed to the medical management consult. I spoke with on-call surgery Dr. Eden who accepted the admission and was in agreement the plan. Diagnosis/symptom? @ -Cholecystitis Acute, or Chronic, or Acute on Chronic? @ -Acute Uncomplicated (without systemic symptoms) or Complicated (systemic symptoms)? @ -Complicated Side effects of treatment? @ -None Exacerbation, Progression, or Severe Exacerbation] @ -No Poses a threat to life or bodily function? @ -Potentially yes (Sriram Gordon) Disposition <Binh Mariee - Last Filed: 06/28/24 05:30> Time of Disposition: 08:10 <Sriram Gordon - Last Filed: 06/28/24 08:48> Clinical Impression: Cholecystitis Disposition: ADMITTED IP TO THIS [facility] Condition: Stable Referrals: Fletcher Ospina MD [Primary Care Provider] - 1-2 days
[2024-06-28] MEDS: ASPIRIN 81 MG PO STA (05:43)
[2024-06-28] MEDS: SODIUM CHLORIDE 0.9% 500 ML 500 ML IV STA (05:44)
[2024-06-28] MEDS: MORPHINE SULFATE 4 MG/ML SYRINGE IV STA ×2 (05:44→05:45)
[2024-06-28] MEDS: ONDANSETRON 4 MG/2 ML VIAL IVP STA (05:44)
[2024-06-28 05:53] LABS: Basophils # (A) 0.1 k/uL (0-0.2); Basophils % (A) 1 %; Eosinophils # (A) 0.1 k/uL (0-0.7); Eosinophils % (A) 1 %; HCT 42.2 % (34.0-46.0); HGB 14.1 gm/dL (11.4-16.0); Lymphocytes # (A) 1.3 k/uL (1.0-4.8); Lymphocytes % (A) 14 %; MCH 32.1 pg (25.0-35.0); MCHC 33.5 g/dL (31.0-37.0); MCV 95.9 fL (80.0-100.0); Mean Platelet Volume 6.7; Monocytes # (A) 0.2 k/uL (0-1.0); Monocytes % (A) 3 %; Neutrophils # (A) 7.4 k/uL (1.3-7.7); Neutrophils % (A) 81 %; Platelet Count 275 k/uL (150-450); RDW 13.3 % (11.5-15.5); WBC 9.1 k/uL (3.8-10.6)
[2024-06-28 06:04] LABS: ALT 21 U/L (4-34); AST 24 U/L (14-36); African American GFR (CKD) 89 (>60 ml/min/1.73 sqM); Albumin 4.9 g/dL (3.5-5.0); Alkaline Phosphatase 106 U/L (38-126); Amylase 56 U/L (30-110); Anion Gap 9 mmol/L; Blood Urea Nitrogen 16 mg/dL (7-17); Calcium 9.9 mg/dL (8.4-10.2); Carbon Dioxide 28 mmol/L (22-30); Chloride 103 mmol/L (98-107); Glucose 163 mg/dL (74-99); Lipase 138 U/L (23-300); Non-African American GFR(CKD) 77 (>60 ml/min/1.73 sqM); Potassium 3.8 mmol/L (3.5-5.1); Sodium 140 mmol/L (137-145); Total Bilirubin 0.6 mg/dL (0.2-1.3)
[2024-06-28 06:17] LABS: INR 0.9 (<1.2); Partial Thromboplastin Time 22.1 sec (22.0-30.0)
--- NOTE | 2024-06-28 06:58 | XR ---
EXAM: XR Chest, 2 Views CLINICAL HISTORY: ITS.REASON XR Reason: Chest Pain TECHNIQUE: Frontal and lateral views of the chest. COMPARISON: 11/09/18 FINDINGS: Lungs: Low lung volume accentuate pulmonary lung markings. No consolidation. Pleural space: Unremarkable. No pneumothorax. Heart: Unremarkable. No cardiomegaly. Mediastinum: Unremarkable. Normal mediastinal contour. Bones/joints: Degenerative changes are seen in the spine. No acute fracture. IMPRESSION: 1. Low lung volume. 2. No gross acute disease
--- NOTE | 2024-06-28 07:41 | US ---
EXAMINATION TYPE: US abdomen limited DATE OF EXAM: 06/28/2024 COMPARISON: CT 2023 CLINICAL INDICATION: Female, 54 years old with history of attention RUQ; RUQ pain and N/V TECHNIQUE: Multiple sonographic images of the right upper quadrant are obtained. FINDINGS: EXAM MEASUREMENTS: Liver Length: 16.9 cm Gallbladder Wall: 0.4 cm CBD: 0.4 cm Right Kidney: 10.4 x 5.4 x 4.9 cm Hepatic steatosis. Gallbladder is hydropic with cholelithiasis and wall thickening. Acute cholecystit is to exclude. Liver: attenuating, increased echogenicity, mildly heterogeneous Gallbladder: hydropic, cholelithiasis, wall mildly thickened Evidence for sonographic Amato's sign: yes CBD: visualized portions wnl, limited by overlying bowel gas Right Kidney: wnl IMPRESSION: 1. Correlate for acute cholecystitis. 2. Hepatic steatosis.
[2024-06-28] MEDS: PIPERACILLIN-TAZOBACTAM 3.375 GM in SODIUM CHLORIDE 0.9% 100 ML IVPB SCH (08:17)
[2024-06-28] MEDS: SODIUM CHLORIDE 0.9% 1,000 ML IV STA (08:17)
[2024-06-28] MEDS: HYDROmorphone 0.5 MG/0.5 ML SYRINGE IVP STA (08:18)
[2024-06-28] MEDS: ONDANSETRON 4 MG/2 ML VIAL IVP PRN (08:22)
[2024-06-28] MEDS ORDERED: NALOXONE 0.4 MG/ML 1 ML VIAL IV PRN ×2 (08:46→15:40)
[2024-06-28] MEDS: PANTOPRAZOLE 40 MG/10 ML VIAL IV SCH (09:14)
--- NOTE | 2024-06-28 11:39 | P.GSHP ---
History of Present Illness H&P Date: 06/28/24 CHIEF COMPLAINT: Abdominal pain HISTORY OF PRESENT ILLNESS: This is a 54-year-old female who presented to the hospital with complaints of chest pain and upper abdominal pain that started at 1245 this morning. She was having nausea and vomiting. Patient reports that the pain located in the lower chest moved to the right upper quadrant of the abdomen. Pain continues to be severe therefore she came into the hospital for further evaluation. Ultrasound reported to correlate for acute cholecystitis. Had evidence of hydropic gallbladder, gallstones and gallbladder wall thickening. Patient mid to the hospital for acute cholecystitis. Past surgical history does include tubal ligation. She denies being on any blood thinners. Denies any cardiac history. PAST MEDICAL HISTORY: Skin cancer, hernia, diverticulitis PAST SURGICAL HISTORY: Tubal ligation MEDICATIONS: See below ALLERGIES: See below SOCIAL HISTORY: No illicit drug use. REVIEW OF SYSTEMS: CONSTITUTIONAL: Denies fever or chills. HEENT: Denies blurred vision, vision changes, or eye pain. Denies hemoptysis CARDIOVASCULAR: Denies chest pain or pressure. RESPIRATORY: No shortness of breath. GASTROINTESTINAL: See HPI for pertinent findings HEMATOLOGIC: Denies bleeding disorders. GENITOURINARY: Denies any blood in urine or increased urinary frequency. SKIN: Denies pruitis. Denies rash. PHYSICAL EXAM: VITAL SIGNS: Reviewed GENERAL: Well-developed in no acute distress. HEENT: No sclera icterus. Extraocular movements grossly intact. Moist buccal mucosa. Head is atraumatic, normocephalic. No nasal drainage. ABDOMEN: Soft. Nondistended. Tenderness to palpation right upper quadrant NEUROLOGIC: Alert and oriented. Cranial nerves II through XII grossly intact. LABORATORY DATA: WBC 9.1 Hgb 14.1 platelets 275 D-dimer 0.31 Sodium 140 potassium 3.8 creatinine 0.85 Troponin negative LFTs normal Lipase 138 IMAGING: Abdominal ultrasound reports correlate for acute cholecystitis. Hepatic steatosis. ASSESSMENT: 1. Acute cholecystitis. Gallbladder ultrasound reporting hydropic gallbladder, cholelithiasis and gallbladder wall mildly thickened PLAN: -Patient scheduled for laparoscopic cholecystectomy today with Dr. Eden -Keep patient n.p.o. -Continue antibiotics Physician Sizer Machine note has been reviewed by physician. Signing provider agrees with the documented findings, assessment, and plan of care. Past Medical History Past Medical History: Cancer, Hypertension Additional Past Medical History / Comment(s): skin cancer, Hernia, diverticulitis History of Any Multi-Drug Resistant Organisms: None Reported Past Surgical History: Tubal Ligation Additional Past Anesthesia/Blood Transfusion Reaction / Comment(s): pt. is not sure Past Psychological History: No Psychological Hx Reported Smoking Status: Never smoker Past Alcohol Use History: None Reported Past Drug Use History: None Reported - Past Family History Mother History Unknown: Yes Family Medical History: Cancer Additional Family Medical History / Comment(s): breast uterin Father Family Medical History: Cancer Additional Family Medical History / Comment(s): lung cancer Medications and Allergies Home Medications Medication Instructions Recorded Confirmed Type Hydrochlorothiazide 25 mg PO DAILY 12/28/15 06/28/24 History Losartan Potassium 25 mg PO DAILY 12/28/15 06/28/24 History traZODone HCL [Desyrel] 100 mg PO HS 11/09/18 06/28/24 History Omeprazole 20 mg PO DAILY 01/20/24 06/28/24 History Docusate [Colace] 100 mg PO BID 06/28/24 06/28/24 History Allergies Allergy/AdvReac Type Severity Reaction Status Date / Time No Known Allergies Allergy Verified 06/28/24 09:43 Surgical - Exam Vital Signs Temp Pulse Resp BP Pulse Ox 97.0 F L 55 L 18 129/70 98 06/28/24 05:18 06/28/24 05:18 06/28/24 05:18 06/28/24 05:18 06/28/24 05:18 Results - Labs 06/28/24 05:34 06/28/24 05:34 Abnormal Lab Results - Last 24 Hours (Table) 06/28/24 Range/Units 05:34 Glucose 163 H (74-99) mg/dL Diabetes panel 06/28/24 Range/Units 05:34 Sodium 140 (137-145) mmol/L Potassium 3.8 (3.5-5.1) mmol/L Chloride 103 (98-107) mmol/L Carbon Dioxide 28 (22-30) mmol/L BUN 16 (7-17) mg/dL Creatinine 0.85 (0.52-1.04) mg/dL Glucose 163 H (74-99) mg/dL Calcium 9.9 (8.4-10.2) mg/dL AST 24 (14-36) U/L ALT 21 (4-34) U/L Alkaline Phosphatase 106 (38-126) U/L Total Protein 8.0 (6.3-8.2) g/dL Albumin 4.9 (3.5-5.0) g/dL Calcium panel 06/28/24 Range/Units 05:34 Calcium 9.9 (8.4-10.2) mg/dL Albumin 4.9 (3.5-5.0) g/dL Pituitary panel 06/28/24 Range/Units 05:34 Sodium 140 (137-145) mmol/L Potassium 3.8 (3.5-5.1) mmol/L Chloride 103 (98-107) mmol/L Carbon Dioxide 28 (22-30) mmol/L BUN 16 (7-17) mg/dL Creatinine 0.85 (0.52-1.04) mg/dL Glucose 163 H (74-99) mg/dL Calcium 9.9 (8.4-10.2) mg/dL Adrenal panel 06/28/24 Range/Units 05:34 Sodium 140 (137-145) mmol/L Potassium 3.8 (3.5-5.1) mmol/L Chloride 103 (98-107) mmol/L Carbon Dioxide 28 (22-30) mmol/L BUN 16 (7-17) mg/dL Creatinine 0.85 (0.52-1.04) mg/dL Glucose 163 H (74-99) mg/dL Calcium 9.9 (8.4-10.2) mg/dL Total Bilirubin 0.6 (0.2-1.3) mg/dL AST 24 (14-36) U/L ALT 21 (4-34) U/L Alkaline Phosphatase 106 (38-126) U/L Total Protein 8.0 (6.3-8.2) g/dL Albumin 4.9 (3.5-5.0) g/dL
[2024-06-28] MEDS: HYDROmorphone 0.5 MG/0.5 ML SYRINGE IVP PRN (11:48)
--- NOTE | 2024-06-28 14:12 | P.HPIM ---
History of Present Illness H&P Date: 06/28/24 History of present illness; 54-year-old female presents to the emergency department with substernal chest pain that began 5 hours ago while she was resting that radiates to the back. She states nothing makes it better or worse, the pain is always there, it is associated with nausea and vomiting. Chest x- ray done in the emergency department showed low lung volume with no acute pulmonary disease. Abdominal ultrasound showed acute cholecystitis with evidence of hepatic steatosis. Labs in the emergency department showed an unremarkable CBC and CMP. Glucose of 163. She states that the pain began suddenly, substernally, at around 12:30 AM. Pain continued, wrapped around her whole back, led to nausea and vomiting starting around 1:00 in the morning. Eventually, the pain became localized to the right upper quadrant where it remained with associated nausea and vomiting. On presentation at bedside today patient appears in moderate discomfort, referencing the pain in the right upper quadrant. States she is doing the discomfort only prior to making a decision the pain was too much and coming to the emergency department at around 5 AM. Abdominal ultrasound showed acute cholecystitis with evidence of hepatic steatosis. Surgery was consulted and the patient was consented for surgery today. Initial lab work done in the ER showed unremarkable CBC and CMP. Glucose of 163. Troponin negative. EKG done in the ER showed heart rate of 57, sinus bradycardia with low voltage QRS in the precordial leads Chest x-ray done in the ER showed a low lung volume with no acute disease. Abdominal ultrasound showed acute cholecystitis and evidence of hepatic steatosis. Patient admitted to internal medicine service REVIEW OF SYSTEMS: CONSTITUTIONAL: No fever, no malaise, no fatigue. HEENT: No recent visual problems or hearing problems. Denied any sore throat. CARDIOVASCULAR: No chest pain, orthopnea, PND, no palpitations, no syncope. PULMONARY: No shortness of breath, no cough, no hemoptysis. GASTROINTESTINAL: Abdominal pain with nausea and vomiting. NEUROLOGICAL: No headaches, no weakness, no numbness. HEMATOLOGICAL: Denies any bleeding or petechiae. GENITOURINARY: Denies any burning micturition, frequency, or urgency. MUSCULOSKELETAL/RHEUMATOLOGICAL: Denies any joint pain, swelling, or any muscle pain. ENDOCRINE: Denies any polyuria or polydipsia. The rest of the 14-point review of systems is negative. PHYSICAL EXAMINATION: GENERAL: The patient is alert and oriented x3, not in any acute distress. Well developed, well nourished. HEENT: Pupils are round and equally reacting to light. EOMI. No scleral icterus. No conjunctival pallor. Normocephalic, atraumatic. No pharyngeal erythema. No thyromegaly. CARDIOVASCULAR: S1 and S2 present. No murmurs, rubs, or gallops. PULMONARY: Chest is clear to auscultation, no wheezing or crackles. ABDOMEN: Soft, nondistended, normoactive bowel sounds. Slight tenderness to palpation of the right upper quadrant, after the patient has already received pain medication, she states it was much worse without the medication. MUSCULOSKELETAL: No joint swelling or deformity. EXTREMITIES: No cyanosis, clubbing, or pedal edema. NEUROLOGICAL: Gross neurological examination did not reveal any focal deficits. SKIN: No rashes. Assessment and plan #Acute cholecystitis Acute onset of severe, constant abdominal pain. Lasting for hours so far Abdominal ultrasound confirmed acute cholecystitis Patient discussed and consented for surgery to be completed today Presurgery, patient placed on Zosyn #Hypertension Patient takes losartan and hydrochlorothiazide at home Both medications held currently has the patient blood pressure was on the lower side Continue to monitor vital signs, monitor CBC, monitor CMP and monitor Hemoglobin A1c results Labs and medication were reviewed. Continue with symptomatic treatment. Resume home medication. Monitor labs and vitals. DVT and GI prophylaxis. Further recommendations as per clinical course of the patient Dictation was produced using [employer] dictation software. please excuse any grammatical, word or spelling errors. Past Medical History Past Medical History: Cancer, Hypertension Additional Past Medical History / Comment(s): skin cancer, Hernia, diverticulitis History of Any Multi-Drug Resistant Organisms: None Reported Past Surgical History: Tubal Ligation Additional Past Anesthesia/Blood Transfusion Reaction / Comment(s): pt. is not sure Past Psychological History: No Psychological Hx Reported Smoking Status: Never smoker Past Alcohol Use History: None Reported Past Drug Use History: None Reported - Past Family History Mother History Unknown: Yes Family Medical History: Cancer Additional Family Medical History / Comment(s): breast uterin Father Family Medical History: Cancer Additional Family Medical History / Comment(s): lung cancer Medications and Allergies Home Medications Medication Instructions Recorded Confirmed Type Hydrochlorothiazide 25 mg PO DAILY 12/28/15 06/28/24 History Losartan Potassium 25 mg PO DAILY 12/28/15 06/28/24 History traZODone HCL [Desyrel] 100 mg PO HS 11/09/18 06/28/24 History Omeprazole 20 mg PO DAILY 01/20/24 06/28/24 History Docusate [Colace] 100 mg PO BID 06/28/24 06/28/24 History Allergies Allergy/AdvReac Type Severity Reaction Status Date / Time No Known Allergies Allergy Verified 06/28/24 09:43 Physical Exam Vitals: Vital Signs Temp Pulse Resp BP Pulse Ox 06/28/24 09:00 86 16 102/68 98 06/28/24 08:15 97.5 F L 60 16 114/65 95 06/28/24 05:18 97.0 F L 55 L 18 129/70 98 Intake and Output 06/27/24 06/28/24 06/28/24 22:59 06:59 14:59 Other: Weight 90.718 kg Results CBC & Chem 7: 06/28/24 05:34 06/28/24 05:34 Labs: Abnormal Lab Results - Last 24 Hours (Table) 06/28/24 Range/Units 05:34 Glucose 163 H (74-99) mg/dL
[2024-06-28] MEDS: IV FLUID CONTINUATION 1,000 ML IV ONE (14:18)
[2024-06-28] MEDS: DEXAMETHASONE SOD PHOSPHATE 4 MG/ML 1 ML VIAL IVP STA (14:25)
[2024-06-28] MEDS: HEPARIN SODIUM,PORCINE 5,000 UNIT/ML 1 ML VIAL SQ STA (14:26)
[2024-06-28] MEDS ORDERED: KETOROLAC 15 MG/ML 1 ML VIAL ONE (14:46)
[2024-06-28] MEDS ORDERED: ROCURONIUM 10 MG/ML (5 ML VIAL) IV ONE (14:46)
[2024-06-28] MEDS ORDERED: PROPOFOL 10 MG/ML 20 ML VIAL IV ONE (14:46)
[2024-06-28] MEDS ORDERED: LIDOCAINE 1% INJ 10MG/ML (20 ML MDV) ONE (14:46)
[2024-06-28] MEDS ORDERED: GLYCOPYRROLATE 0.2 MG/ML 2 ML VIAL ONE (14:46)
[2024-06-28] MEDS ORDERED: SUCCINYLCHOLINE CHLORIDE 200 MG/10 ML VIAL IV ONE (14:46)
[2024-06-28] MEDS ORDERED: MIDAZOLAM 2 MG/2 ML VIAL ONE (14:46)
[2024-06-28] MEDS ORDERED: fentaNYL (PF) 50 MCG/ML 2 ML AMP ONE (14:46)
[2024-06-28] MEDS ORDERED: NEOSTIGMINE 1 MG/ML 10 ML VIAL ONE (14:46)
[2024-06-28] MEDS: SODIUM CHLORIDE 0.9% 100 ML with ceFAZolin 2,000 MG IV ONE (14:51)
[2024-06-28] MEDS: BUPIVACAINE (PF) 0.25% 30 ML VIAL SQ ONE (15:13)
[2024-06-28] MEDS: LACTATED RINGERS 1,000 ML IV ONE (15:35)
[2024-06-28] MEDS ORDERED: ONDANSETRON 4 MG/2 ML VIAL IVP PRN (15:40)
[2024-06-28] MEDS ORDERED: HYDROmorphone 0.5 MG/0.5 ML SYRINGE IVP PRN (15:40)
[2024-06-28] MEDS ORDERED: HYDROcodone/APAP 5-325MG 1 EACH TAB PO PRN (15:40)
[2024-06-28] MEDS ORDERED: HYDROmorphone 1 MG/ML 1 ML SYRINGE IVP PRN (15:40)
--- NOTE | 2024-06-28 15:40 | P.OP ---
Date of Procedure: 06/28/24 Preoperative Diagnosis: Cholecystitis Postoperative Diagnosis: Cholecystitis Anesthesia: SOLOMON Surgeon: Aniket Eden Estimated Blood Loss (ml): 5 Pathology: other (Gallbladder) Condition: stable Disposition: PACU Operative Findings: Cholelithiasis Description of Procedure: The patient was placed on the operating table. The patient received a general endotracheal tube anesthesia. The patients abdomen was prepped and draped in the usual sterile fashion. Through an infraumbilical stab incision, the fascia of the anterior abdominal wall was grasped with a pair of Kochers and then the Veress needle was placed in the peritoneal cavity. Position of the Veress needle was confirmed with positive drop test. The abdomen was then insufflated. After adequate insufflation, the 10 mm trocar was placed in the peritoneal cavity. Following this the laparoscope was placed in the peritoneal cavity. The patient was placed in the head-up, right side up position and then a 5 mm trocar was placed in the right lateral and right subcostal position under direct visualization. A 8 mm trocar was placed in the epigastric position. The gallbladder was very inflamed. There was cholelithiasis noted. The gallbladder was grasped in the fundus and infundibulum. Traction on the gallbladder was placed in the lateral and the cephalad positions. The triangle of Calot was visualized.. The cystic duct was bluntly dissected until the union of the cystic duct and common bile duct was seen. A critical view of safety was achieved. The cystic duct was then divided and sealed with the Harmonic scissors. A PDS Endoloop was then placed throughout the cystic duct stump. The cystic artery divided and sealed with the Harmonic scissors. The gallbladder was then removed from the liver bed using Harmonic scissors. The gallbladder was then extracted through the epigastric port site. A JUAN CARLOS drain was placed in the gallbladder fossa and brought through the epigastric port site. Operative field was checked for any bleeding spots and Harmonic scissors was used to coagulate the liver bed. The abdomen was irrigated. The trocars were removed. The skin was closed using interrupted 3- 0 Vicryl suture. Dermabond dressing were applied. The patient tolerated the procedure well.
[2024-06-28] MEDS: KETOROLAC 15 MG/ML 1 ML VIAL IVP SCH (18:41)
[2024-06-28] MEDS: SODIUM CHLORIDE 0.9% 1,000 ML IV SCH (18:50)
[2024-06-28] MEDS: LACTATED RINGERS 1,000 ML IV SCH (19:21)
[2024-06-28] MEDS: DOCUSATE 100 MG CAP PO SCH (20:59)
[2024-06-29] MEDS: ACETAMINOPHEN TAB 325 MG TAB PO PRN (02:32)
[2024-06-29 08:48] LABS: Basophils # (A) 0.01 X 10*3/uL (0.00-0.10); Basophils % (A) 0.1 %; Eosinophils # (A) 0 X 10*3/uL (0.04-0.35); Eosinophils % (A) 0 %; HCT 32.7 % (37.2-46.3); HGB 10.6 g/dL (12.0-15.0); Lymphocytes # (A) 1.09 X 10*3/uL (0.90-5.00); Lymphocytes % (A) 10.4 %; MCH 31.6 pg (27.0-32.0); MCHC 32.4 g/dL (32.0-37.0); MCV 97.6 FL (80.0-97.0); Mean Platelet Volume 9.5 FL (9.5-12.2); Monocytes # (A) 0.46 X 10*3/uL (0.20-1.00); Monocytes % (A) 4.4 %; NRBC Per 100 WBC 0 X 10*3/uL (0.00-0.01); Neutrophils # (A) 8.88 X 10*3/uL (1.80-7.70); Neutrophils % (A) 84.7 %; Platelet Count 203 X 10*3/uL (140-440); RBC 3.35 X 10*6/uL (4.10-5.20); RDW 13.5 % (11.5-14.5); WBC 10.48 X 10*3/uL (4.50-10.00)
[2024-06-29] MEDS ORDERED: LOSARTAN 25 MG TAB PO SCH (09:00)
[2024-06-29] MEDS ORDERED: hydroCHLOROthiazide 25 MG TAB PO SCH (09:00)
[2024-06-29 09:06] LABS: ALT 46 U/L (8-44); AST 46 U/L (13-35); Albumin 3.7 g/dL (3.8-4.9); Albumin/Globulin Ratio 2.18 Ratio (1.60-3.17); Alkaline Phosphatase 95 U/L (41-126); Blood Urea Nitrogen 14.8 mg/dL (9.0-27.0); Calcium 8.1 mg/dL (8.7-10.3); Chloride 106 mmol/L (96-109); Globulin 1.7 g/dL (1.6-3.3); Glucose 127 mg/dL (70-110); Potassium 4.5 mmol/L (3.5-5.5); Sodium 139 mmol/L (135-145); Total Bilirubin 0.6 mg/dL (0.3-1.2); Total Protein 5.4 g/dL (6.2-8.2)
[2024-06-29] MEDS: ENOXAPARIN 40 MG/0.4 ML SYRINGE SQ SCH (09:14)
--- NOTE | 2024-06-29 14:13 | P.PN ---
Subjective Progress Note Date: 06/29/24 54-year-old female presents to the emergency department with substernal chest pain that began 5 hours ago while she was resting that radiates to the back. She states nothing makes it better or worse, the pain is always there, it is associated with nausea and vomiting. Chest x-ray done in the emergency de partment showed low lung volume with no acute pulmonary disease. Abdominal ultrasound showed acute cholecystitis with evidence of hepatic steatosis. Labs in the emergency department showed an unremarkable CBC and CMP. Glucose of 163. She states that the pain began suddenly, substernally, at around 12:30 AM. Pain continued, wrapped around her whole back, led to nausea and vomiting starting around 1:00 in the morning. Eventually, the pain became localized to the right upper quadrant where it remained with associated nausea and vomiting. On presentation at bedside today patient appears in moderate discomfort, referencing the pain in the right upper quadrant. States she is doing the disc omfort only prior to making a decision the pain was too much and coming to the emergency department at around 5 AM. Abdominal ultrasound showed acute cholecystitis with evidence of hepatic steatosis. Surgery was consulted and the patient was consented for surgery today. Initial lab work done in the ER showed unremarkable CBC and CMP. Glucose of 163. Troponin negative. EKG done in the ER showed heart rate of 57, sinus bradycardia with low voltage QRS in the precordial leads Chest x-ray done in the ER showed a low lung volume with no acute disease. Abdominal ultrasound showed acute cholecystitis and evidence of hepatic steatosis. 06/29 - Patient seen at bedside today. Patient surgery was completed yesterday. Per Dr. Eden the patient tolerated the surgery well. Patient has remained afebrile overnight, blood pressure is well-controlled, patient's oxygen saturations have stayed around 90% overnight after dropping to the point yesterday evening. Patient was on 2 L nasal cannula, currently on room air. Patient will continue to receive Zosyn, patient has additionally taken acetaminophen 650 mg, 0.5 mg Dilaudid and 3 doses of 15 mg ketorolac. Patient reports feeling well, with no current complaints. From the perspective medicine team, patient is stable to be discharged. Labs done today - WBC 10.48, Hbg 10.6, Hct 32.7, MCV 97.6, AST 46, ALT 46, total protein 5.4, albumin 3.7 REVIEW OF SYSTEMS: CONSTITUTIONAL: No fever, no malaise, no fatigue. HEENT: No recent visual problems or hearing problems. Denied any sore throat. CARDIOVASCULAR: No chest pain, orthopnea, PND, no palpitations, no syncope. PULMONARY: No shortness of breath, no cough, no hemoptysis. GASTROINTESTINAL: Abdominal pain with nausea and vomiting. NEUROLOGICAL: No headaches, no weakness, no numbness. HEMATOLOGICAL: Denies any bleeding or petechiae. GENITOURINARY: Denies any burning micturition, frequency, or urgency. MUSCULOSKELETAL/RHEUMATOLOGICAL: Denies any joint pain, swelling, or any muscle pain. ENDOCRINE: Denies any polyuria or polydipsia. The rest of the 14-point review of systems is negative. PHYSICAL EXAMINATION: GENERAL: The patient is alert and oriented x3, not in any acute distress. Well developed, well nourished. HEENT: Pupils are round and equally reacting to light. EOMI. No scleral icterus. No conjunctival pallor. Normocephalic, atraumatic. No pharyngeal erythema. No thyromegaly. CARDIOVASCULAR: S1 and S2 present. No murmurs, rubs, or gallops. PULMONARY: Chest is clear to auscultation, no wheezing or crackles. ABDOMEN: Soft, nondistended, normoactive bowel sounds. Slight tenderness to palpation of the right upper quadrant, after the patient has already received pain medication, she states it was much worse without the medication. MUSCULOSKELETAL: No joint swelling or deformity. EXTREMITIES: No cyanosis, clubbing, or pedal edema. NEUROLOGICAL: Gross neurological examination did not reveal any focal deficits. SKIN: No rashes. Assessment and plan #Acute cholecystitis Acute onset of severe, constant abdominal pain. Lasting for hours so far Abdominal ultrasound confirmed acute cholecystitis Patient discussed and consented for surgery to be completed today Presurgery, patient placed on Zosyn #Hypertension Patient takes losartan and hydrochlorothiazide at home Both medications held currently has the patient blood pressure was on the lower side 06/29 blood pressure continues to be well-controlled without the administration of her home blood pressure medications Discussed with patient holding off on taking her blood pressure medication, until following up with primary care, unless she noted an increase in blood pressure while checking at home. Continue to monitor vital signs, monitor CBC, monitor CMP and monitor Hemoglobin A1c results Labs and medication were reviewed. Continue with symptomatic treatment. Resume home medication. Monitor labs and vitals. DVT and GI prophylaxis. Further recommendations as per clinical course of the patient Dictation was produced using [employer] dictation software. please excuse any grammatical, word or spelling errors. Objective - Vital Signs Vital signs: Vital Signs Temp 98 F 06/29/24 01:28 Pulse 88 06/29/24 01:28 Resp 16 06/29/24 01:28 BP 124/63 06/29/24 01:28 Pulse Ox 90 L 06/29/24 01:28 FiO2 Intake & Output 06/28/24 06/29/24 06/29/24 18:59 06:59 18:59 Intake Total 1600 100 Output Total 5 60 Balance 1595 40 Weight 90.718 kg Intake: IV 1600 Intake, IV Titration 100 Amount Piperacillin-Tazobactam 3 100 .375 gm In Sodium Chloride 0.9% 100 ml @ 25 mls/hr IVPB Q8HR [facility] Rx# :[id number] Output: Drainage 60 Anterior Medial Abdomen 60 Estimated Blood Loss 5 Other: # Voids 3 - Labs CBC & Chem 7: 06/29/24 04:32 06/29/24 04:32
--- NOTE | 2024-06-29 15:15 | P.PN ---
Subjective Progress Note Date: 06/29/24 CHIEF COMPLAINT: Cholecystitis HISTORY OF PRESENT ILLNESS: Patient postop day #1 status post laparoscopic cholecystectomy. Patient initially complained of pain this morning. After pain medication she had been feeling well. Diet has been advanced. However, this afternoon for evaluation of possible discharge patient was more nauseous she had a drop in her oxygen saturation to 88% on room air and is now on 2 L satting at 95%. She was unable to eat lunch. She did have a small bowel movement this mo rning and flatus. Afebrile. Blood pressures have been on the lower side. Last BP 100/55. JUAN CARLOS drain 60 mL serosanguineous output PHYSICAL EXAM: VITAL SIGNS: Reviewed. GENERAL: Well-developed in no acute distress. HEENT: No sclera icterus. Extraocular movements grossly intact. Moist buccal mucosa. Head is atraumatic, normocephalic. ABDOMEN: Soft. Nondistended. Incision sites clean dry and intact. NEUROLOGIC: Alert and oriented. Cranial nerves II through XII grossly intact. ASSESSMENT: 1. Cholecystitis PLAN: -Continue to monitor -Continue antiemetics -Continue low-fat diet -Encourage patient to use incentive spirometer -Encourage patient to ambulate -Continue pain management -DVT prophylaxis Lovenox and GI prophylaxis Protonix Physician Ob Scrub Tech note has been reviewed by physician. Signing provider agrees with the documented findings, assessment, and plan of care. Objective - Vital Signs Vital signs: Vital Signs Temp 98.5 F 06/29/24 12:42 Pulse 52 L 06/29/24 12:42 Resp 16 06/29/24 12:42 BP 100/55 06/29/24 12:42 Pulse Ox 95 06/29/24 12:44 FiO2 Intake & Output 06/28/24 06/29/24 06/29/24 18:59 06:59 18:59 Intake Total 1600 100 Output Total 5 60 40 Balance 1595 40 -40 Weight 90.718 kg Intake: IV 1600 Intake, IV Titration 100 Amount Piperacillin-Tazobactam 3 100 .375 gm In Sodium Chloride 0.9% 100 ml @ 25 mls/hr IVPB Q8HR [facility] Rx# :[id number] Output: Drainage 60 40 Anterior Medial Abdomen 60 40 Estimated Blood Loss 5 Other: # Voids 3 - Labs CBC & Chem 7: 06/29/24 04:32 06/29/24 04:32 Labs: Abnormal Lab Results - Last 24 Hours (Table) 06/29/24 06/29/24 06/29/24 Range/Units 04:32 04:32 04:32 WBC 10.48 H (4.50-10.00) X 10*3/uL RBC 3.35 L (4.10-5.20) X 10*6/uL Hgb 10.6 L (12.0-15.0) g/dL Hct 32.7 L (37.2-46.3) % MCV 97.6 H (80.0-97.0) FL Neutrophils # 8.88 H (1.80-7.70) X 10*3/uL Eosinophils # 0 L (0.04-0.35) X 10*3/uL Glucose 127 H (70-110) mg/dL Hemoglobin A1c 6.1 H (<=6.0) % Calcium 8.1 L (8.7-10.3) mg/dL AST 46 H (13-35) U/L ALT 46 H (8-44) U/L Total Protein 5.4 L (6.2-8.2) g/dL Albumin 3.7 L (3.8-4.9) g/dL
[2024-06-30 09:27] LABS: Basophils % (A) 0 %; Eosinophils # (A) 0.1 k/uL (0-0.7); Eosinophils % (A) 1 %; HCT 32.4 % (34.0-46.0); Hypochromasia Slight; Lymphocytes # (A) 1.3 k/uL (1.0-4.8); Lymphocytes % (A) 16 %; MCHC 32.4 g/dL (31.0-37.0); MCV 98.8 fL (80.0-100.0); Mean Platelet Volume 7.1; Monocytes # (A) 0.3 k/uL (0-1.0); Monocytes % (A) 4 %; Neutrophils # (A) 5.9 k/uL (1.3-7.7); Neutrophils % (A) 78 %; Platelet Count 192 k/uL (150-450); RBC 3.28 m/uL (3.80-5.40); RDW 13.6 % (11.5-15.5); WBC 7.6 k/uL (3.8-10.6)
[2024-06-30 09:28] LABS: HGB 10.5 gm/dL (11.4-16.0)
[2024-06-30 09:57] LABS: ALT 153 U/L (4-34); AST 149 U/L (14-36); African American GFR (CKD) >90 (>60 ml/min/1.73 sqM); Albumin 3.3 g/dL (3.5-5.0); Albumin/Globulin Ratio 1.4; Alkaline Phosphatase 155 U/L (38-126); Anion Gap 5 mmol/L; Blood Urea Nitrogen 17 mg/dL (7-17); Calcium 8.2 mg/dL (8.4-10.2); Carbon Dioxide 24 mmol/L (22-30); Chloride 110 mmol/L (98-107); Globulin 2.3 g/dL; Glucose 94 mg/dL (74-99); Non-African American GFR(CKD) >90 (>60 ml/min/1.73 sqM); Potassium 4.2 mmol/L (3.5-5.1); Sodium 139 mmol/L (137-145); Total Bilirubin 0.8 mg/dL (0.2-1.3); Total Protein 5.6 g/dL (6.3-8.2)
[2024-06-30] MEDS: DEXAMETHASONE SOD PHOSPHATE 4 MG/ML 1 ML VIAL IVP SCH (11:09)
--- NOTE | 2024-06-30 13:53 | XR ---
EXAMINATION TYPE: XR chest 1V DATE OF EXAM: 06/30/2024 1:49 PM CLINICAL INDICATION:Female, 54 years old with history of nausea; [facility] COMPARISON: Chest radiograph from one day prior. TECHNIQUE: XR chest 1V Frontal view of the chest. FINDINGS: Lungs/Pleura: There is no evidence of pleural effusion, focal consolidation, or pneumothorax. Pulmonary vascularity: Unremarkable. Heart/mediastinum: Cardiomediastinal silhouette is unremarkable. Musculoskeletal: No acute osseous pathology. IMPRESSION: Similar exam, Low lung volumes with a generalized hazy appearance which could represent atelectasis v ersus pulmonary edema correlate with serum BNP.
--- NOTE | 2024-06-30 14:35 | P.PN ---
Subjective Progress Note Date: 06/30/24 THIS IS A MEDICAL MANAGEMENT CONSULT NOTE 54-year-old female presents to the emergency department with substernal chest pain that began 5 hours ago while she was resting that radiates to the back. She states nothing makes it better or worse, the pain is always there, it is associated with nausea and vomiting. Chest x-ray done in the emergency department showed low lung volume with no acute pulmonary disease. Abdominal ultrasound showed acute cholecystitis with evidence of hepatic steatosis. Labs in the emergency department showed an unremarkable CBC and CMP. Glucose of 163. She states that the pain began suddenly, substernally, at around 12:30 AM. Pain continued, wrapped around her whole back, led to nausea and vomiting starting around 1:00 in the morning. Eventually, the pain became localized to the right upper quadrant where it remained with associated nausea and vomiting. On presentation at bedside today patient appears in moderate discomfort, referencing the pain in the right upper quadrant. States she is doing the discomfort only prior to making a decision the pain was too much and coming to the emergency department at around 5 AM. Abdominal ultrasound showed acute cholecystitis with evidence of hepatic steatosis. Surgery was consulted and the patient was consented for surgery today. Initial lab work done in the ER showed unremarkable CBC and CMP. Glucose of 163. Troponin negative. EKG done in the ER showed heart rate of 57, sinus bradycardia with low voltage QRS in the precordial leads Chest x-ray done in the ER showed a low lung volume with no acute disease. Abdominal ultrasound showed acute cholecystitis and evidence of hepatic steatosis. 06/29 - Patient seen at bedside today. Patient surgery was completed yesterday. Per Dr. Eden the patient tolerated the surgery well. Patient has remained afebrile overnight, blood pressure is well-controlled, patient's oxygen saturations have stayed around 90% overnight after dropping to the point yeste rd evening. Patient was on 2 L nasal cannula, currently on room air. Patient will continue to receive Zosyn, patient has additionally taken acetaminophen 650 mg, 0.5 mg Dilaudid and 3 doses of 15 mg ketorolac. Patient reports feeling well, with no current complaints. From the perspective medicine team, patient is stable to be discharged. Labs done today - WBC 10.48, Hbg 10.6, Hct 32.7, MCV 97.6, AST 46, ALT 46, total protein 5.4, albumin 3.7 06/30 - patient seen at bedside today. When seen by the medicine team yesterday, patient states she was feeling well and was resting relatively comfortably after having some pain in the morning when she woke up. However, patient was endorsing some nausea and some oxygen saturations in the upper 80s, 88%, as the afternoon progressed and the patient was put on 2 L nasal cannula. The patient has remained afebrile and the blood pressures remain on the lower side, she has a JUAN CARLOS drain which continues with serosanguineous output. Patient has her incentive spirometer and has been encouraged to use it, which she states she is. The patient will continue antiemetics, low-fat diet, has been encouraged to ambulate pain management continue. We will continue to follow and make recommendations as needed. On new labs completed today 06/30, AST is 149, ALT is 153, Alkaline Phosphatase 155, Total Protein 5.6 and Albumin 3.3. She has remained afebrile, however her oxygen saturations have been 85% this morning while on room air, and on 2 L NC following that episode her saturation is now 92%. Patient states that she is not feeling well, continued nausea, headaches and a more generalized ill appearance. Patient currently satting 93% on room air however her heart rate dropped down to 33, EKG showed marked sinus bradycardia with low voltage QRS. Chest x-ray done showed, similar exam to the previous, low lung volumes with generalized hazy appearance which could represent atelectasis versus pulmonary edema which should be correlated with a [facility] BNP. Serum BNP has been ordered and is pending. Patient is currently being transferred to 3 . Labs done today - Chloride 110, AST 149, ALT 153, Alkaline Phosphotase 155, Total Protein 5.6, Albumin 3.3, Calcium 8.2, Hgb 10.5, Hct 32.4 Imaging done today - chest x-ray today showed similar exam to previous, low lung volumes with generalized hazy appearance which could represent atelectasis versus pulmonary edema should be correlated with serum BNP EKG done today showed sinus bradycardia with low voltage QRS REVIEW OF SYSTEMS: CONSTITUTIONAL: No fever, no malaise, no fatigue. HEENT: No recent visual problems or hearing problems. Denied any sore throat. CARDIOVASCULAR: No chest pain, orthopnea, PND, no palpitations, no syncope. PULMONARY: No shortness of breath, no cough, no hemoptysis. GASTROINTESTINAL: Abdominal pain with nausea and vomiting. NEUROLOGICAL: No headaches, no weakness, no numbness. HEMATOLOGICAL: Denies any bleeding or petechiae. GENITOURINARY: Denies any burning micturition, frequency, or urgency. MUSCULOSKELETAL/RHEUMATOLOGICAL: Denies any joint pain, swelling, or any muscle pain. ENDOCRINE: Denies any polyuria or polydipsia. The rest of the 14-point review of systems is negative. PHYSICAL EXAMINATION: GENERAL: The patient is alert and oriented x3, not in any acute distress. Somewhat ill-appearing today. HEENT: Pupils are round and equally reacting to light. EOMI. No scleral icterus. No conjunctival pallor. Normocephalic, atraumatic. No pharyngeal erythema. No thyromegaly. CARDIOVASCULAR: S1 and S2 present. No murmurs, rubs, or gallops. PULMONARY: Chest is clear to auscultation, no wheezing or crackles. ABDOMEN: Soft, nondistended, normoactive bowel sounds. Slight tenderness to palpation of the right upper quadrant, after the patient has already received pain medication, she states it was much worse without the medication. MUSCULOSKELETAL: No joint swelling or deformity. EXTREMITIES: No cyanosis, clubbing, or pedal edema. NEUROLOGICAL: Gross neurological examination did not reveal any focal deficits. SKIN: No rashes. Assessment and plan #Acute cholecystitis Acute onset of severe, constant abdominal pain. Lasting for hours so far Abdominal ultrasound confirmed acute cholecystitis Patient discussed and consented for surgery to be completed today Presurgery, patient placed on Zosyn #Hypertension Patient takes losartan and hydrochlorothiazide at home Both medications held currently has the patient blood pressure was on the lower side 06/29 blood pressure continues to be well-controlled without the administration of her home blood pressure medications Discussed with patient holding off on taking her blood pressure medication, until following up with primary care, unless she noted an increase in blood pressure while checking at home. #Bradycardia Patient has been bradycardic since being in the hospital however today heart rate dropped to 33 most recent EKG EKG showed sinus bradycardia with low voltage QRS complexes Moved to 3 S., cardiac stepdown floor, for continued monitoring Continue to monitor vital signs, monitor CBC, monitor CMP, monitor telemetry Labs and medication were reviewed. Continue with symptomatic treatment. Resume home medication. Monitor labs and vitals. DVT and GI prophylaxis. Further recommendations as per clinical course of the patient Dictation was produced using [employer] dictation software. please excuse any grammatical, word or spelling errors. Objective - Vital Signs Vital signs: Vital Signs Temp 98.1 F 06/30/24 01:34 Pulse 63 06/30/24 01:34 Resp 15 06/30/24 01:34 BP 133/65 06/30/24 01:34 Pulse Ox 95 06/30/24 01:34 FiO2 Intake & Output 06/29/24 06/29/24 06/30/24 06:59 18:59 06:59 Intake Total 100 240 Output Total 60 60 80 Balance 40 -60 160 Weight 90.718 kg Intake: Intake, IV Titration 100 Amount Piperacillin-Tazobactam 3 100 .375 gm In Sodium Chloride 0.9% 100 ml @ 25 mls/hr IVPB Q8HR TORRES Rx# :[id number] Oral 240 Output: Drainage 60 60 80 Anterior Medial Abdomen 60 60 80 Other: # Voids 3 1 - Labs CBC & Chem 7: 06/30/24 08:14 06/30/24 08:14 Labs: Abnormal Lab Results - Last 24 Hours (Table) 06/29/24 06/29/24 06/29/24 Range/Units 04:32 04:32 04:32 WBC 10.48 H (4.50-10.00) X 10*3/uL RBC 3.35 L (4.10-5.20) X 10*6/uL Hgb 10.6 L (12.0-15.0) g/dL Hct 32.7 L (37.2-46.3) % MCV 97.6 H (80.0-97.0) FL Neutrophils # 8.88 H (1.80-7.70) X 10*3/uL Eosinophils # 0 L (0.04-0.35) X 10*3/uL Glucose 127 H (70-110) mg/dL Hemoglobin A1c 6.1 H (<=6.0) % Calcium 8.1 L (8.7-10.3) mg/dL AST 46 H (13-35) U/L ALT 46 H (8-44) U/L Total Protein 5.4 L (6.2-8.2) g/dL Albumin 3.7 L (3.8-4.9) g/dL
--- NOTE | 2024-06-30 15:58 | P.PN ---
Subjective Progress Note Date: 06/30/24 CHIEF COMPLAINT: Cholecystitis HISTORY OF PRESENT ILLNESS: Patient postop day #2 status post laparoscopic cholecystectomy. Patient complains of nausea. She has had flatus. Her pain is controlled. After rounding on patient this morning. During the afternoon she became more bradycardic and required transfer to the cardiac floor. Afebrile. WBC 7.6 LFTs trending up Patient seen and examined with Dr. Eden PHYSICAL EXAM: VITAL SIGNS: Reviewed. GENERAL: Well-developed in no acute distress. ABDOMEN: Soft. Nondistended. Incision sites clean dry and intact. NEUROLOGIC: Alert and oriented. Cranial nerves II through XII grossly intact. ASSESSMENT: 1. Cholecystitis 2. Elevated liver enzymes PLAN: -Decadron added for nausea -Repeat LFTs in a.m. -Continue low-fat diet -Agree with cardiology consult -Continue to monitor -Continue antiemetics -Encourage patient to use incentive spirometer -Encourage patient to ambulate -Continue pain management -DVT prophylaxis Lovenox and GI prophylaxis Protonix Physician Butcher Helper note has been reviewed by physician. Signing provider agrees with the documented findings, assessment, and plan of care. Objective - Vital Signs Vital signs: Vital Signs Temp 97.9 F 06/30/24 13:35 Pulse 33 L 06/30/24 13:35 Resp 20 06/30/24 13:35 BP 151/71 06/30/24 13:35 Pulse Ox 93 L 06/30/24 13:35 FiO2 Intake & Output 06/29/24 06/30/24 06/30/24 18:59 06:59 18:59 Intake Total 240 Output Total 60 80 100 Balance -60 160 -100 Intake: Oral 240 Output: Drainage 60 80 100 Anterior Medial Abdomen 60 80 100 Other: # Voids 1 - Labs CBC & Chem 7: 06/30/24 08:14 06/30/24 08:14 Labs: Abnormal Lab Results - Last 24 Hours (Table) 06/30/24 06/30/24 Range/Units 08:14 08:14 RBC 3.28 L (3.80-5.40) m/uL Hgb 10.5 L D (11.4-16.0) gm/dL Hct 32.4 L (34.0-46.0) % Chloride 110 H (98-107) mmol/L Calcium 8.2 L (8.4-10.2) mg/dL AST 149 H (14-36) U/L ALT 153 H (4-34) U/L Alkaline Phosphatase 155 H (38-126) U/L Total Protein 5.6 L (6.3-8.2) g/dL Albumin 3.3 L (3.5-5.0) g/dL
[2024-06-30] MEDS: MELATONIN 5 MG TABLET PO PRN (22:49)
[2024-07-01] MEDS: FUROSEMIDE 10 MG/ML 2 ML VIAL IV ONE (12:05)
[2024-07-01] MEDS: SODIUM CHLORIDE 0.9% 1,000 ML IV SCH (12:06)
[2024-07-01 14:15] LABS: Basophils % (A) 0 %; Eosinophils # (A) 0.1 k/uL (0-0.7); Eosinophils % (A) 1 %; HCT 35.5 % (34.0-46.0); Lymphocytes # (A) 1.2 k/uL (1.0-4.8); Lymphocytes % (A) 11 %; MCH 32.5 pg (25.0-35.0); MCHC 33.8 g/dL (31.0-37.0); Mean Platelet Volume 7.7; Monocytes # (A) 0.4 k/uL (0-1.0); Monocytes % (A) 4 %; Neutrophils # (A) 8.9 k/uL (1.3-7.7); Neutrophils % (A) 84 %; Platelet Count 271 k/uL (150-450); RDW 13.7 % (11.5-15.5); WBC 10.6 k/uL (3.8-10.6)
[2024-07-01 14:25] LABS: ALT 188 U/L (4-34); AST 139 U/L (14-36); African American GFR (CKD) >90 (>60 ml/min/1.73 sqM); Albumin 3.8 g/dL (3.5-5.0); Alkaline Phosphatase 154 U/L (38-126); Anion Gap 6 mmol/L; Blood Urea Nitrogen 17 mg/dL (7-17); Calcium 8.7 mg/dL (8.4-10.2); Carbon Dioxide 25 mmol/L (22-30); Chloride 106 mmol/L (98-107); Glucose 171 mg/dL (74-99); Non-African American GFR(CKD) 87 (>60 ml/min/1.73 sqM); Potassium 4.1 mmol/L (3.5-5.1); Sodium 137 mmol/L (137-145); Total Protein 6.3 g/dL (6.3-8.2)
--- NOTE | 2024-07-01 15:40 | P.PN ---
Subjective Progress Note Date: 07/01/24 CHIEF COMPLAINT: Cholecystitis HISTORY OF PRESENT ILLNESS: Patient postop day #3 status post laparoscopic cholecystectomy. Patient reports overall she is feeling better. She denies any further nausea. She did have a bowel movement. Her pain is controlled. She does complain of mild headache. She did require transfer to the cardiac floor yesterday for bradycardia. Heart rate has remained in the 30s. She has been seen by cardiology and ECHO ordered. Afebrile. WBC 10.6 Hgb 12 platelets 271 total bilirubin 1.0 AST 149 down to 139 ALT 153-188 alk phos 155-154 Patient seen and examined with Dr. Eden PHYSICAL EXAM: VITAL SIGNS: Reviewed. GENERAL: Well-developed in no acute distress. ABDOMEN: Soft. Nondistended. Incision sites clean dry and intact. NEUROLOGIC: Alert and oriented. Cranial nerves II through XII grossly intact. ASSESSMENT: 1. Cholecystitis 2. Elevated liver enzymes PLAN: -Awaiting further recommendations per cardiology service -Continue low-fat diet -Midline ordered due to difficulty with blood draws -Repeat LFTs in a.m. -Continue to monitor -Continue antiemetics -Encourage patient to use incentive spirometer -Encourage patient to ambulate -Continue pain management -DVT prophylaxis Lovenox and GI prophylaxis Protonix Physician Preforms Laminator note has been reviewed by physician. Signing provider agrees with the documented findings, assessment, and plan of care. Objective - Vital Signs Vital signs: Vital Signs Temp 98.1 F 06/30/24 20:00 Pulse 34 L 07/01/24 15:18 Resp 16 07/01/24 15:18 BP 165/68 07/01/24 15:18 Pulse Ox 95 07/01/24 15:18 FiO2 Intake & Output 06/30/24 07/01/24 07/01/24 18:59 06:59 18:59 Intake Total 240 120 Output Total 061 733 [id number] Balance 110 -160 -2350 Weight 97.2 kg Intake: Oral 240 120 Output: Drainage 130 160 170 Anterior Medial Abdomen 130 160 170 Urine 2300 Other: Voiding Method Toilet Toilet # Voids 1 - Labs CBC & Chem 7: 07/01/24 14:10 07/01/24 14:10 Labs: Abnormal Lab Results - Last 24 Hours (Table) 06/30/24 07/01/24 07/01/24 Range/Units 08:14 14:10 14:10 RBC 3.70 L (3.80-5.40) m/uL Neutrophils # 8.9 H (1.3-7.7) k/uL Glucose 171 H (74-99) mg/dL AST 139 H (14-36) U/L ALT 188 H (4-34) U/L Alkaline Phosphatase 154 H (38-126) U/L Free T3 pg/mL 1.90 L (2.30-4.20) pg/mL
--- NOTE | 2024-07-01 15:50 | P.CRDCN ---
History of Present Illness Consult date: 07/01/24 History of present illness: Dr. Barlow's addendum Patient was evaluated with the resident. I participated in obtaining history, physical examination, chart review. This note was created by the resident under my direct supervision. Sinus bradycardia No evidence of blocks or pauses noticed on telemetry. Patient does have good chronotropic competence. Her heart rate did go up with ambulation. We will obtain echocardiogram, monitor hemodynamics. Monitor electrolytes potassium and magnesium. Her TSH is normal, free T3 is low but not to the concerning level that would explain patient's bradycardia. I feel patient pericardia is just postoperative state and should get better in next 24 hours. Patient is a 54-year-old female with past medical history of hypertension maintained on hydrochlorothiazide and losartan is being consulted for bradycardia. She has had multiple readings in the 30s and 40s. She presented to the ED on Friday due to substernal chest pain. She was found to have acute cholecystitis. She had a laparoscopic cholecystectomy Friday afternoon. She denies any current chest pain or palpitations currently. The only pain she is experiencing is from cholecystectomy. ECG shows sinus bradycardia. Labs show hemoglobin 10.5, down from 14.1 on admission. Hypothyroidism noted on labs with low free T3 - patient started on Synthroid 25 mcg. Review of Systems Negative except what is mentioned in HPI. Past Medical History Past Medical History: Cancer, Hypertension Additional Past Medical History / Comment(s): skin cancer, Hernia, diverticulitis History of Any Multi-Drug Resistant Organisms: None Reported Past Surgical History: Cholecystectomy, Tubal Ligation Additional Past Surgical History / Comment(s): Pt had cholecystectomy today 06/28/2024 Past Anesthesia/Blood Transfusion Reactions: No Reported Reaction Additional Past Anesthesia/Blood Transfusion Reaction / Comment(s): pt. is not sure Past Psychological History: No Psychological Hx Reported Smoking Status: Never smoker Past Alcohol Use History: None Reported Past Drug Use History: None Reported - Past Family History Mother History Unknown: Yes Family Medical History: Cancer Additional Family Medical History / Comment(s): breast uterine Father Family Medical History: Cancer Additional Family Medical History / Comment(s): lung cancer Medications and Allergies Home Medications Medication Instructions Recorded Confirmed Type Hydrochlorothiazide 25 mg PO DAILY 12/28/15 06/28/24 History Losartan Potassium 25 mg PO DAILY 12/28/15 06/28/24 History traZODone HCL [Desyrel] 100 mg PO HS 11/09/18 06/28/24 History Omeprazole 20 mg PO DAILY 01/20/24 06/28/24 History Docusate [Colace] 100 mg PO BID 06/28/24 06/28/24 History Allergies Allergy/AdvReac Type Severity Reaction Status Date / Time No Known Allergies Allergy Verified 06/28/24 14:23 Physical Exam Vitals: Vital Signs Temp Pulse Pulse Resp BP BP BP 07/01/24 12:16 36 L 16 158/72 07/01/24 08:06 38 L 07/01/24 07:48 37 L 15 154/67 07/01/24 04:00 43 L 20 137/60 07/01/24 00:00 37 L 20 122/71 06/30/24 20:00 98.1 F 33 L 20 114/60 Pulse Ox 07/01/24 12:16 92 L 07/01/24 08:06 07/01/24 07:48 95 07/01/24 04:00 93 L 07/01/24 00:00 92 L 06/30/24 20:00 92 L Intake and Output 06/30/24 07/01/24 07/01/24 22:59 06:59 14:59 Intake Total 240 120 Output Total 70 120 1470 Balance 170 -120 -1350 Intake: Oral 240 120 Output: Drainage 70 120 170 Anterior Medial Abdomen 70 120 170 Urine 1300 Other: Voiding Method Toilet Toilet # Voids 1 Weight 97.2 kg Sinus bradycardia present. General: No acute distress. HEENT: Head exam is unremarkable. Lungs: Bilateral breath sounds present; no rhonchi, wheezes, or rales. Heart: Rate and rhythm are regular. Abdomen: Mildly tender due to surgery. Extremities: Trace edema present. Results 07/01/24 14:10 07/01/24 14:10 Current Medications Generic Name Dose Route Start Last Admin Trade Name Freq PRN Reason Stop Dose Admin Acetaminophen 650 mg 06/28/24 15:40 07/01/24 07:59 Acetaminophen Tab 325 Mg Tab PO 650 mg Q6HR PRN Administration Mild Pain or Fever >= 100.5 Hydrocodone Bitart/Acetaminophen 1 each 06/28/24 15:40 Hydrocodone/Apap 5-325mg 1 Each Tab PO Q4HR PRN Moderate Pain (Scale 4 to 6) Dexamethasone Sodium Phosphate 4 mg 06/30/24 12:00 07/01/24 12:05 Dexamethasone Sod Phosphate 4 Mg/Ml 1 Ml Vial IVP 4 mg Q6HR TORRES Administration Docusate Sodium 100 mg 06/28/24 21:00 07/01/24 07:51 Docusate 100 Mg Cap PO 100 mg BID TORRES Administration Enoxaparin Sodium 40 mg 06/29/24 09:00 07/01/24 07:52 Enoxaparin 40 Mg/0.4 Ml Syringe SQ 40 mg DAILY TORRES Administration Hydromorphone HCl 0.5 mg 06/28/24 08:46 06/29/24 09:12 Hydromorphone 0.5 Mg/0.5 Ml Syringe IVP 0.5 mg Q3HR PRN Administration Moderate Pain (Scale 4 to 6) Hydromorphone HCl 0.5 mg 06/28/24 15:40 Hydromorphone 0.5 Mg/0.5 Ml Syringe IVP Q3HR PRN Moderate Pain (Scale 4 to 6) Hydromorphone HCl 1 mg 06/28/24 15:40 Hydromorphone 1 Mg/Ml 1 Ml Syringe IVP Q4HR PRN Severe Pain (Scale 7 to 10) Piperacillin Sod/Tazobactam 100 mls @ 25 mls/hr 06/28/24 08:00 07/01/24 07:51 Sod 3.375 gm/ Sodium Chloride IVPB 25 mls/hr Q8HR TORRES Administration Protocol Sodium Chloride 1,000 mls @ 20 mls/hr 07/01/24 11:15 07/01/24 12:06 Saline 0.9% IV 20 mls/hr .Q24H TORRES Administration Melatonin 5 mg 06/30/24 22:20 06/30/24 22:49 Melatonin 5 Mg Tablet PO 5 mg HS PRN Administration Insomnia Naloxone HCl 0.2 mg 06/28/24 08:46 Naloxone 0.4 Mg/Ml 1 Ml Vial IV Q2M PRN Opioid Reversal Naloxone HCl 0.2 mg 06/28/24 15:40 Naloxone 0.4 Mg/Ml 1 Ml Vial IV Q2M PRN Opioid Reversal Ondansetron HCl 4 mg 06/28/24 07:48 06/30/24 20:14 Ondansetron 4 Mg/2 Ml Vial IVP 4 mg Q6HR PRN Administration Nausea And Vomiting Ondansetron HCl 4 mg 06/28/24 15:40 Ondansetron 4 Mg/2 Ml Vial IVP Q6HR PRN Nausea And Vomiting Pantoprazole Sodium 40 mg 06/28/24 09:00 07/01/24 07:51 Pantoprazole 40 Mg/10 Ml Vial IV 40 mg DAILY TORRES Administration Intake and Output 06/30/24 07/01/24 07/01/24 22:59 06:59 14:59 Intake Total 240 120 Output Total 70 120 1470 Balance 170 -120 -1350 Intake: Oral 240 120 Output: Drainage 70 120 170 Anterior Medial Abdomen 70 120 170 Urine 1300 Other: Voiding Method Toilet Toilet # Voids 1 Weight 97.2 kg 06/30/24 08:14 06/30/24 08:14 Assessment and Plan Assessment: 1. Sinus bradycardia. Hydrochlorothiazide and losartan held due to lower blood pressures - several readings in the 100s. 2. Status postcholecystectomy on 06/28/2024. 3. Hypothyroidism. Started on Synthroid 25 mcg. Plan: Monitor ECG while patient is walking around to see if bradycardia improves. Restart antihypertensive medications if blood pressure is elevated. Obtain echocardiogram. Thank you for the consultation. We will continue to monitor her during her hospital stay.
--- NOTE | 2024-07-01 15:54 | P.PN ---
Subjective Progress Note Date: 07/01/24 THIS IS A MEDICAL MANAGEMENT CONSULT NOTE 54-year-old female presents to the emergency department with substernal chest pain that began 5 hours ago while she was resting that radiates to the back. She states nothing makes it better or worse, the pain is always there, it is associated with nausea and vomiting. Chest x-ray done in the emergency department showed low lung volume with no acute pulmonary disease. Abdominal ultrasound showed acute cholecystitis with evidence of hepatic steatosis. Labs in the emergency department showed an unremarkable CBC and CMP. Glucose of 163. She states that the pain began suddenly, substernally, at around 12:30 AM. Pain continued, wrapped around her whole back, led to nausea and vomiting starting around 1:00 in the morning. Eventually, the pain became localized to the right upper quadrant where it remained with associated nausea and vomiting. On presentation at bedside today patient appears in moderate discomfort, referencing the pain in the right upper quadrant. States she is doing the discomfort only prior to making a decision the pain was too much and coming to the emergency department at around 5 AM. Abdominal ultrasound showed acute cholecystitis with evidence of hepatic steatosis. Surgery was consulted and the patient was consented for surgery today. Initial lab work done in the ER showed unremarkable CBC and CMP. Glucose of 163. Troponin negative. EKG done in the ER showed heart rate of 57, sinus bradycardia with low voltage QRS in the precordial leads Chest x-ray done in the ER showed a low lung volume with no acute disease. Abdominal ultrasound showed acute cholecystitis and evidence of hepatic steatosis. 06/29 - Patient seen at bedside today. Patient surgery was completed yesterday. Per Dr. Eden the patient tolerated the surgery well. Patient has remained afebrile overnight, blood pressure is well-controlled, patient's oxygen saturations have stayed around 90% overnight after dropping to the point yeste rd evening. Patient was on 2 L nasal cannula, currently on room air. Patient will continue to receive Zosyn, patient has additionally taken acetaminophen 650 mg, 0.5 mg Dilaudid and 3 doses of 15 mg ketorolac. Patient reports feeling well, with no current complaints. From the perspective medicine team, patient is stable to be discharged. Labs done today - WBC 10.48, Hbg 10.6, Hct 32.7, MCV 97.6, AST 46, ALT 46, total protein 5.4, albumin 3.7 06/30 - patient seen at bedside today. When seen by the medicine team yesterday, patient states she was feeling well and was resting relatively comfortably after having some pain in the morning when she woke up. However, patient was endorsing some nausea and some oxygen saturations in the upper 80s, 88%, as the afternoon progressed and the patient was put on 2 L nasal cannula. The patient has remained afebrile and the blood pressures remain on the lower side, she has a JUAN CARLOS drain which continues with serosanguineous output. Patient has her incentive spirometer and has been encouraged to use it, which she states she is. The patient will continue antiemetics, low-fat diet, has been encouraged to ambulate pain management continue. We will continue to follow and make recommendations as needed. On new labs completed today 06/30, AST is 149, ALT is 153, Alkaline Phosphatase 155, Total Protein 5.6 and Albumin 3.3. She has remained afebrile, however her oxygen saturations have been 85% this morning while on room air, and on 2 L NC following that episode her saturation is now 92%. Patient states that she is not feeling well, continued nausea, headaches and a more generalized ill appearance. Patient currently satting 93% on room air however her heart rate dropped down to 33, EKG showed marked sinus bradycardia with low voltage QRS. Chest x-ray done showed, similar exam to the previous, low lung volumes with generalized hazy appearance which could represent atelectasis versus pulmonary edema which should be correlated with a [facility] BNP. Serum BNP has been ordered and is pending. Patient is currently being transferred to 3 . Labs done today - Chloride 110, AST 149, ALT 153, Alkaline Phosphotase 155, Total Protein 5.6, Albumin 3.3, Calcium 8.2, Hgb 10.5, Hct 32.4 Imaging done today - chest x-ray today showed similar exam to previous, low lung volumes with generalized hazy appearance which could represent atelectasis versus pulmonary edema should be correlated with serum BNP EKG done today showed sinus bradycardia with low voltage QRS 07/01 - Patient seen at bedside today. Patient remained bradycardic throughout t he night, most recent heart rate was 34, blood pressure 165/68, continuing to saturate 95 % on room air. Patient continues to receive Decadron, Zosyn, Zofran and Tylenol 650 mg. Patient states she was feeling better, however has had bouts of watery diarrhea. Due to difficulty with blood draws, surgery decided to insert a midline. Patient was seen by cardiology, who ordered an echo to be done and they will continue to follow. Patient was also noted to have a TSH of 4.42 and a free T3 of 1.90 on labs done on 06/30, patient started on 25 mcg p.o. daily of levothyroxine. Labs done today -WBC 10.6, Hgb 12 point, Hct 35.5, AST 139, ALT 188, alkaline phosphatase 154, from yesterday's labs TSH 4.42, free T3 1.90 Imaging none today - None REVIEW OF SYSTEMS: CONSTITUTIONAL: No fever, no malaise, no fatigue. HEENT: No recent visual problems or hearing problems. Denied any sore throat. CARDIOVASCULAR: No chest pain, orthopnea, PND, no palpitations, no syncope. PULMONARY: No shortness of breath, no cough, no hemoptysis. GASTROINTESTINAL: Abdominal pain with nausea and vomiting. NEUROLOGICAL: No headaches, no weakness, no numbness. HEMATOLOGICAL: Denies any bleeding or petechiae. GENITOURINARY: Denies any burning micturition, frequency, or urgency. MUSCULOSKELETAL/RHEUMATOLOGICAL: Denies any joint pain, swelling, or any muscle pain. ENDOCRINE: Denies any polyuria or polydipsia. The rest of the 14-point review of systems is negative. PHYSICAL EXAMINATION: GENERAL: The patient is alert and oriented x3, not in any acute distress. Somewhat ill-appearing today. HEENT: Pupils are round and equally reacting to light. EOMI. No scleral icterus. No conjunctival pallor. Normocephalic, atraumatic. No pharyngeal erythema. No thyromegaly. CARDIOVASCULAR: S1 and S2 present. No murmurs, rubs, or gallops. PULMONARY: Chest is clear to auscultation, no wheezing or crackles. ABDOMEN: Soft, nondistended, normoactive bowel sounds. Slight tenderness to palpation of the right upper quadrant, after the patient has already received pain medication, she states it was much worse without the medication. MUSCULOSKELETAL: No joint swelling or deformity. EXTREMITIES: No cyanosis, clubbing, or pedal edema. NEUROLOGICAL: Gross neurological examination did not reveal any focal deficits. SKIN: No rashes. Assessment and plan This is a 54-year-old female who presents to the emergency department with severe substernal abdominal pain that localized to the right upper quadrant. Abdominal ultrasound confirmed acute cholecystitis for which the patient underwent cholecystectomy on 06/28. Patient has had transaminitis, with increasing Hernández phosphatase, nausea, vomiting and episodes of difficulty breathing desaturating into the 80s since that time. #Acute cholecystitis Acute onset of severe, constant abdominal pain. Lasting for hours so far Abdominal ultrasound confirmed acute cholecystitis Patient discussed and consented for surgery to be completed today Presurgery, patient placed on Zosyn Continue low-fat diet per surgery's request Will repeat LFTs in the a.m. #Hypertension Patient takes losartan and hydrochlorothiazide at home Both medications held currently has the patient blood pressure was on the lower side 06/29 blood pressure continues to be well-controlled without the administration of her home blood pressure medications Discussed with patient holding off on taking her blood pressure medication, until following up with primary care, unless she noted an increase in blood pre ssure while checking at home. #Bradycardia Patient has been bradycardic since being in the hospital however today heart rate dropped to 33 most recent EKG EKG showed sinus bradycardia with low voltage QRS complexes Moved to 3 S., cardiac stepdown floor, for continued monitoring Per cardiology recommendation an echocardiogram was ordered Awaiting further recommendations per cardiology #Hypothyroidism found on labs On labs yesterday 06/30 TSH was found to be 4.42 and free T3 was found to be 1.90 Starting patient on 25 mcg p.o. daily of levothyroxine Continue to monitor vital signs, monitor CBC, monitor CMP, monitor telemetry Labs and medication were reviewed. Continue with symptomatic treatment. Resume home medication. Monitor labs and vitals. DVT and GI prophylaxis. Further recommendations as per clinical course of the patient Dictation was produced using [employer] dictation software. please excuse any grammatical, word or spelling errors. Objective - Vital Signs Vital signs: Vital Signs Temp 98.1 F 06/30/24 20:00 Pulse 43 L 07/01/24 04:00 Resp 20 07/01/24 04:00 BP 137/60 07/01/24 04:00 Pulse Ox 93 L 07/01/24 04:00 FiO2 Intake & Output 0707/01/24 07/01/24 18:59 06:59 18:59 Intake Total 240 Output Total 130 160 Balance 110 -160 Weight 97.2 kg Intake: Oral 240 Output: Drainage 130 160 Anterior Medial Abdomen 130 160 Other: Voiding Method Toilet # Voids 1 - Labs CBC & Chem 7: 07/01/24 14:10 07/01/24 14:10 Labs: Abnormal Lab Results - Last 24 Hours (Table) 06/30/24 06/30/24 06/30/24 Range/Units 08:14 08:14 08:14 RBC 3.28 L (3.80-5.40) m/uL Hgb 10.5 L D (11.4-16.0) gm/dL Hct 32.4 L (34.0-46.0) % Chloride 110 H (98-107) mmol/L Calcium 8.2 L (8.4-10.2) mg/dL AST 149 H (14-36) U/L ALT 153 H (4-34) U/L Alkaline Phosphatase 155 H (38-126) U/L Total Protein 5.6 L (6.3-8.2) g/dL Albumin 3.3 L (3.5-5.0) g/dL Free T3 pg/mL 1.90 L (2.30-4.20) pg/mL
--- NOTE | 2024-07-01 18:18 | CA ---
Transthoracic Echo Report Name: Alisia Nice Age: 54 Gender: F : 1970 Exam Date: 07/01/2024 14:12 Exam Location: [place] [facility] Ht (in): 62 Wt (lb): 214 Ordering Physician: Prieto Barlow MD ([id number]) Attending/Referring Phys: Chief Payroll Clerk Dulce Eisenberg RDCS Procedure CPT: Indications: bradycardia and chest pain Cardiac Hx: Technical Quality: 38 Contrast 1: Total Dose (mL): Contrast 2: Total Dose (mL): MEASUREMENTS (Male / Female) Normal Values 2D ECHO LV Diastolic Diameter PLAX 4.5 cm 4.2 - 5.9 / 3.9 - 5.3 cm LV Systolic Diameter PLAX 4.1 cm IVS Diastolic Thickness 0.9 cm 0.6 - 1.0 / 0.6 - 0.9 cm LVPW Diastolic Thickness 0.9 cm 0.6 - 1.0 / 0.6 - 0.9 cm LV Relative Wall Thickness 0.4 RV Internal Dim ED PLAX 3.3 cm LA Systolic Diameter LX 4.0 cm 3.0 - 4.0 / 2.7 - 3.8 cm LV Diastolic Volume MOD BP 100.4 cm??? 67 - 155 / 56 - 104 cm??? LV Systolic Volume MOD BP 36.6 cm??? 22 - 58 / 19 - 49 cm??? LV Ejection Fraction MOD BP 63.5 % >= 55 % LV Cardiac Index MOD BP 1147.7 cm???/min???m??? LV Diastolic Volume MOD 4C 113.5 cm??? LV Systolic Volume MOD 4C 41.9 cm??? LV Ejection Fraction MOD 4C 63.1 % LV Cardiac Index MOD 4C 1288.8 cm???/min???m??? LV Diastolic Length 4C 7.1 cm LV Systolic Length 4C 6.0 cm LV Diastolic Volume MOD 2C 88.3 cm??? LV Systolic Volume MOD 2C 31.8 cm??? LV Ejection Fraction MOD 2C 64.0 % LV Cardiac Index MOD 2C 1016.2 cm???/min???m??? LV Diastolic Length 2C 7.2 cm LV Systolic Length 2C 6.1 cm LA Volume 60.3 cm??? 18 - 58 / 22 - 52 cm??? LA Volume Index 28.6 cm???/m??? 16 - 28 cm???/m??? M-MODE Aortic Root Diameter MM 3.1 cm AV Cusp Separation MM 1.7 cm DOPPLER AV Peak Velocity 161.4 cm/s AV Peak Gradient 10.4 mmHg AI Peak Velocity 339.4 cm/s AI Peak Gradient 46.1 mmHg AI Pressure Half Time 1359.2 ms MV Area PHT 4.3 cm??? Mitral E Point Velocity 135.4 cm/s Mitral A Point Velocity 115.7 cm/s Mitral E to A Ratio 1.2 MV Deceleration Time 178.0 ms TR Peak Velocity 213.4 cm/s TR Peak Gradient 18.2 mmHg Right Ventricular Systolic Press 23.2 mmHg FINDINGS Left Ventricle Left ventricular ejection fraction is estimated at 55-60 %. Left ventricular cavity size normal. Left ventricular wall thickness normal. Normal left ventricular wall motion. Right Ventricle Mild right ventricular dilatation. Right ventricular systolic pressure within normal limits. Right Atrium Normal right atrial size. No right atrial thrombus or mass seen. No right atrial thrombus or mass seen. Left Atrium Mildly increased left atrial diameter. Mildly increased left atrial volume. Mildly increased left atrial area. Mitral Valve Structurally normal mitral valve. Mitral annular calcification. Mild mitral regurgitation. Aortic Valve Trileaflet aortic valve. No aortic valve stenosis or regurgitation. Tricuspid Valve Structurally normal tricuspid valve. Mild tricuspid regurgitation. Pulmonic Valve Structurally normal pulmonic valve. No pulmonic regurgitation. Pericardium No pericardial effusion. No pleural effusion. Aorta Normal size aortic root and proximal ascending aorta. CONCLUSIONS Diagnosis: Chest discomfort bradycardia Mild LVH with preserved systolic function RV enlargement with normal RVSP Previewed by: Dr. Teo Macedo MD (Electronically Signed) Final Date: 01 July 2024 18:17
[2024-07-02] MEDS: LEVOTHYROXINE 25 MCG TAB PO SCH (05:54)
--- NOTE | 2024-07-02 09:15 | P.PN ---
Subjective Progress Note Date: 07/02/24 SUBJECTIVE: Patient was made to ambulate in the unit with good chronotropic competence noticed on telemetry. No reported lightheadedness dizziness symptoms. Patient denies any chest pain chest pressure. BP 140/80, heart rate 40 bpm Synopsis 54-year-old with hypertension presented with epigastric pain underwent laparoscopic cholecystectomy. Cardiology was consulted for mild bradycardia noticed after the surgery. Her heart rate has been around 30s to 40s while resting. No blocks were appreciated on ECG and telemetry. Narrow QRS PHYSICAL EXAMINATION Vital signs reviewed. Head: Normocephalic. Eyes: Sclerae nonicteric. Neck: Brisk carotid upstroke, no jugular venous distention. Lungs: Clear to auscultation. Heart: Regular rate and rhythm, S1-S2, no S3, no murmur or rub. Abdomen: Soft nontender, bowel sounds present, Extremities: No edema, Neuro: Alert, oriented, no focal neurological deficits. Detailed neuro exam was not performed. ASSESSMENT Sinus bradycardia with heart rate in 40s during rest. No evidence of blocks or pauses. Good chronotropic competence PLAN TSH is normal however T3 is low. Patient is not having clinical signs symptoms of hypothyroidism other than just low heart rate which can be multifactorial. She was started on levothyroxine 25 mcg. I would recommend that she follows up with a director of corporate real estate to really assess if she has hypothyroidism or not. Patient's echocardiogram showed preserved LVEF, no significant valvular disease, mild RV dilatation but no concerns of elevated RVSP. Would recommend that this patient should be evaluated for outpatient sleep study Would recommend a 14-day event monitor to go home with Follow-up outpatient with cardiology for treadmill stress test for chronotropic competence evaluation Resume her antihypertensives losartan 25 mg and HCTZ 25 mg daily Patient is okay to be discharged from cardiovascular standpoint. Cardiology team will sign off. Prieto Barlow MD, FACC, RPVI Thank you for allowing [facility] to participate in this patient's care. Please contact us in case of any followup questions. Objective - Vital Signs Vital signs: Vital Signs Temp 98.1 F 07/02/24 04:00 Pulse 42 L 07/02/24 04:00 Resp 16 07/02/24 04:00 BP 137/64 07/02/24 04:00 Pulse Ox 95 07/02/24 04:00 FiO2 Intake & Output 07/01/24 07/02/24 07/02/24 18:59 06:59 18:59 Intake Total 120 118 Output Total 2970 1380 Balance -2850 -1380 118 Weight 93.7 kg Intake: Oral 120 118 Output: Drainage 170 80 Anterior Medial Abdomen 170 80 Urine 2800 1300 Other: Voiding Method Toilet Toilet - Labs CBC & Chem 7: 07/01/24 14:10 07/01/24 14:10 Labs: Abnormal Lab Results - Last 24 Hours (Table) 07/01/24 07/01/24 Range/Units 14:10 14:10 RBC 3.70 L (3.80-5.40) m/uL Neutrophils # 8.9 H (1.3-7.7) k/uL Glucose 171 H (74-99) mg/dL AST 139 H (14-36) U/L ALT 188 H (4-34) U/L Alkaline Phosphatase 154 H (38-126) U/L
[2024-07-02 09:20] VITALS: TEMP 97.8
[2024-07-02] MEDS: LOSARTAN 25 MG TAB PO SCH (10:17)
[2024-07-02] MEDS: hydroCHLOROthiazide 25 MG TAB PO SCH (10:17)
[2024-07-02 10:41] LABS: ALT 130 U/L (4-34); AST 50 U/L (14-36); African American GFR (CKD) >90 (>60 ml/min/1.73 sqM); Albumin 3.4 g/dL (3.5-5.0); Alkaline Phosphatase 119 U/L (38-126); Anion Gap 2 mmol/L; Blood Urea Nitrogen 21 mg/dL (7-17); Calcium 8.4 mg/dL (8.4-10.2); Carbon Dioxide 26 mmol/L (22-30); Chloride 109 mmol/L (98-107); Glucose 118 mg/dL (74-99); Magnesium 2.2 mg/dL (1.6-2.3); Non-African American GFR(CKD) >90 (>60 ml/min/1.73 sqM); Sodium 137 mmol/L (137-145); Total Bilirubin 0.7 mg/dL (0.2-1.3); Total Protein 5.8 g/dL (6.3-8.2)
[2024-07-02 12:30] VITALS: BP 155/66; PULSE 36; RESP 16
--- NOTE | 2024-07-02 13:00 | P.PN ---
Subjective Progress Note Date: 07/02/24 THIS IS A MEDICAL MANAGEMENT CONSULT NOTE 54-year-old female presents to the emergency department with substernal chest pain that began 5 hours ago while she was resting that radiates to the back. She states nothing makes it better or worse, the pain is always there, it is associated with nausea and vomiting. Chest x-ray done in the emergency department showed low lung volume with no acute pulmonary disease. Abdominal ultrasound showed acute cholecystitis with evidence of hepatic steatosis. Labs in the emergency department showed an unremarkable CBC and CMP. Glucose of 163. She states that the pain began suddenly, substernally, at around 12:30 AM. Pain continued, wrapped around her whole back, led to nausea and vomiting starting around 1:00 in the morning. Eventually, the pain became localized to the right upper quadrant where it remained with associated nausea and vomiting. On presentation at bedside today patient appears in moderate discomfort, referencing the pain in the right upper quadrant. States she is doing the discomfort only prior to making a decision the pain was too much and coming to the emergency department at around 5 AM. Abdominal ultrasound showed acute cholecystitis with evidence of hepatic steatosis. Surgery was consulted and the patient was consented for surgery today. Initial lab work done in the ER showed unremarkable CBC and CMP. Glucose of 163. Troponin negative. EKG done in the ER showed heart rate of 57, sinus bradycardia with low voltage QRS in the precordial leads Chest x-ray done in the ER showed a low lung volume with no acute disease. Abdominal ultrasound showed acute cholecystitis and evidence of hepatic steatosis. 06/29 - Patient seen at bedside today. Patient surgery was completed yesterday. Per Dr. Eden the patient tolerated the surgery well. Patient has remained afebrile overnight, blood pressure is well-controlled, patient's oxygen saturations have stayed around 90% overnight after dropping to the point yeste rd evening. Patient was on 2 L nasal cannula, currently on room air. Patient will continue to receive Zosyn, patient has additionally taken acetaminophen 650 mg, 0.5 mg Dilaudid and 3 doses of 15 mg ketorolac. Patient reports feeling well, with no current complaints. From the perspective medicine team, patient is stable to be discharged. Labs done today - WBC 10.48, Hbg 10.6, Hct 32.7, MCV 97.6, AST 46, ALT 46, total protein 5.4, albumin 3.7 06/30 - patient seen at bedside today. When seen by the medicine team yesterday, patient states she was feeling well and was resting relatively comfortably after having some pain in the morning when she woke up. However, patient was endorsing some nausea and some oxygen saturations in the upper 80s, 88%, as the afternoon progressed and the patient was put on 2 L nasal cannula. The patient has remained afebrile and the blood pressures remain on the lower side, she has a JUAN CARLOS drain which continues with serosanguineous output. Patient has her incentive spirometer and has been encouraged to use it, which she states she is. The patient will continue antiemetics, low-fat diet, has been encouraged to ambulate pain management continue. We will continue to follow and make recommendations as needed. On new labs completed today 06/30, AST is 149, ALT is 153, Alkaline Phosphatase 155, Total Protein 5.6 and Albumin 3.3. She has remained afebrile, however her oxygen saturations have been 85% this morning while on room air, and on 2 L NC following that episode her saturation is now 92%. Patient states that she is not feeling well, continued nausea, headaches and a more generalized ill appearance. Patient currently satting 93% on room air however her heart rate dropped down to 33, EKG showed marked sinus bradycardia with low voltage QRS. Chest x-ray done showed, similar exam to the previous, low lung volumes with generalized hazy appearance which could represent atelectasis versus pulmonary edema which should be correlated with a [facility] BNP. Serum BNP has been ordered and is pending. Patient is currently being transferred to 3 . Labs done today - Chloride 110, AST 149, ALT 153, Alkaline Phosphotase 155, Total Protein 5.6, Albumin 3.3, Calcium 8.2, Hgb 10.5, Hct 32.4 Imaging done today - chest x-ray today showed similar exam to previous, low lung volumes with generalized hazy appearance which could represent atelectasis versus pulmonary edema should be correlated with serum BNP EKG done today showed sinus bradycardia with low voltage QRS 07/01 - Patient seen at bedside today. Patient remained bradycardic throughout t he night, most recent heart rate was 34, blood pressure 165/68, continuing to saturate 95 % on room air. Patient continues to receive Decadron, Zosyn, Zofran and Tylenol 650 mg. Patient states she was feeling better, however has had bouts of watery diarrhea. Due to difficulty with blood draws, surgery decided to insert a midline. Patient was seen by cardiology, who ordered an echo to be done and they will continue to follow. Patient was also noted to have a TSH of 4.42 and a free T3 of 1.90 on labs done on 06/30, patient started on 25 mcg p.o. daily of levothyroxine. Labs done today -WBC 10.6, Hgb 12 point, Hct 35.5, AST 139, ALT 188, alkaline phosphatase 154, from yesterday's labs TSH 4.42, free T3 1.90 Imaging none today - None 07/02 - Patient seen at bedside today. States she is feeling well, no difficulty breathing, able to eat and move around comfortably without issue. In regards to the patient's bradycardia, per cardiology there is no evidence of blocks or pauses noticed on her telemetry. She does have good chronotropic competence. Her heart rate increases with ambulation. Her TSH is at the higher level of normal, free T3 is low but not to the level that would explain the patient's bradycardia. Per cardiology, the patient's pericardia is postoperative and should improve within the next 24 hours. Echocardiogram done on 07/01 showed left ventricular ejection fraction estimated to be 55-60%. Mild left ventricular hypertrophy with preserved systolic function. Right ventricular enlargement with normal RVSP. Per cardiology, patient should follow-up with crop nutrition scientist to assess if she truly has hypothyroidism, as it can be one of the causes of bradycardia however it is generally multifactorial. Also recommend patient be evaluated for an outpatient sleep study, and a 14-day event monitor to go home with. Follow-up with cardiology outpatient for treadmill stress test for chronotropic competence evaluation, and resume her current antihypertensives losartan 25 mg and hydrochlorothiazide 25 mg daily. Cardiology team has determined from there standpoint patient is cleared for discharge. Upon review of patient's labs today her AST is 50, her ALT is 130, her alkaline phosphatase is 119 all continuing to trend down. Patient given a prescription for le vothyroxine and encouraged to follow-up with Dr. Dunlap for follow-up on her hypothyroid results. From the medicine team's perspective patient is cleared for discharge. Labs done today - AST 50, ALT 130, alkaline phosphatase 119 Imaging done today - Echocardiogram completed on 07/01 showed a left ventricular ejection fraction estimated to be 55-60%. Mild ventricular hypertrophy with preserved systolic function. Right ventricular enlargement with normal RVSP. REVIEW OF SYSTEMS: CONSTITUTIONAL: No fever, no malaise, no fatigue. HEENT: No recent visual problems or hearing problems. Denied any sore throat. CARDIOVASCULAR: No chest pain, orthopnea, PND, no palpitations, no syncope. PULMONARY: No shortness of breath, no cough, no hemoptysis. GASTROINTESTINAL: Abdominal pain with nausea and vomiting. NEUROLOGICAL: No headaches, no weakness, no numbness. HEMATOLOGICAL: Denies any bleeding or petechiae. GENITOURINARY: Denies any burning micturition, frequency, or urgency. MUSCULOSKELETAL/RHEUMATOLOGICAL: Denies any joint pain, swelling, or any muscle pain. ENDOCRINE: Denies any polyuria or polydipsia. The rest of the 14-point review of systems is negative. PHYSICAL EXAMINATION: GENERAL: The patient is alert and oriented x3, not in any acute distress. Somewhat ill-appearing today. HEENT: Pupils are round and equally reacting to light. EOMI. No scleral icterus. No conjunctival pallor. Normocephalic, atraumatic. No pharyngeal erythema. No thyromegaly. CARDIOVASCULAR: S1 and S2 present. No murmurs, rubs, or gallops. PULMONARY: Chest is clear to auscultation, no wheezing or crackles. ABDOMEN: Soft, nondistended, normoactive bowel sounds. Slight tenderness to palpation of the right upper quadrant, after the patient has already received pain medication, she states it was much worse without the medication. MUSCULOSKELETAL: No joint swelling or deformity. EXTREMITIES: No cyanosis, clubbing, or pedal edema. NEUROLOGICAL: Gross neurological examination did not reveal any focal deficits. SKIN: No rashes. Assessment and plan This is a 54-year-old female who presents to the emergency department with severe substernal abdominal pain that localized to the right upper quadrant. Abdominal ultrasound confirmed acute cholecystitis for which the patient u nderwent cholecystectomy on 06/28. Patient has had transaminitis, with increasing alkaline phosphatase, nausea, vomiting and episodes of difficulty breathing desaturating into the 80s since that time. #Acute cholecystitis Acute onset of severe, constant abdominal pain. Lasting for hours so far Abdominal ultrasound confirmed acute cholecystitis Patient discussed and consented for surgery to be completed today Presurgery, patient placed on Zosyn Continue low-fat diet per surgery's request Will repeat LFTs in the a.m. #Hypertension Patient takes losartan and hydrochlorothiazide at home Both medications held currently has the patient blood pressure was on the lower side 06/29 blood pressure continues to be well-controlled without the administration of her home blood pressure medications Discussed with patient holding off on taking her blood pressure medication, until following up with primary care, unless she noted an increase in blood pressure while checking at home. #Bradycardia Patient has been bradycardic since being in the hospital however today heart rate dropped to 33 most recent EKG EKG showed sinus bradycardia with low voltage QRS complexes Moved to 3 S., cardiac stepdown floor, for continued monitoring Per cardiology recommendation an echocardiogram was ordered; from left ventricular ejection fraction estimated to be 55-60%. Mild left ventricular hypertrophy with preserved systolic function. Right ventricular enlargement and normal RVSP. Cardiology stated, there is no evidence of blocks or pauses on the patient's telemetry Patient has a good chronotropic competence Her heart rate increases with ambulation Per cardiology's recommendation patient is to follow-up with with outpatient cardiology for further assessment. To be sent home with a 14-day event monitor. #Hypothyroidism found on labs On labs yesterday 06/30 TSH was found to be 4.42 and free T3 was found to be 1.90 Starting patient on 25 mcg p.o. daily of levothyroxine Patient to follow-up with Dr. Dunlap to assess hypothyroidism Patient discharge with 2-week prescription for levothyroxine, until follow-up Continue to monitor vital signs, monitor CBC, monitor CMP, monitor telemetry Labs and medication were reviewed. Continue with symptomatic treatment. Resume home medication. Monitor labs and vitals. DVT and GI prophylaxis. Further recommendations as per clinical course of the patient Dictation was produced using [employer] dictation software. please excuse any grammatical, word or spelling errors. Objective - Vital Signs Vital signs: Vital Signs Temp 98.1 F 07/02/24 04:00 Pulse 42 L 07/02/24 04:00 Resp 16 07/02/24 04:00 BP 137/64 07/02/24 04:00 Pulse Ox 95 07/02/24 04:00 FiO2 Intake & Output 07/01/24 07/01/24 07/02/24 06:59 18:59 06:59 Intake Total 120 Output Total 160 2970 1380 Balance -160 -2850 -1380 Weight 97.2 kg 93.7 kg Intake: Oral 120 Output: Drainage 160 170 80 Anterior Medial Abdomen 160 170 80 Urine 2800 1300 Other: Voiding Method Toilet Toilet Toilet # Voids 1 - Labs CBC & Chem 7: 07/01/24 14:10 07/02/24 10:08 Labs: Abnormal Lab Results - Last 24 Hours (Table) 07/01/24 07/01/24 Range/Units 14:10 14:10 RBC 3.70 L (3.80-5.40) m/uL Neutrophils # 8.9 H (1.3-7.7) k/uL Glucose 171 H (74-99) mg/dL AST 139 H (14-36) U/L ALT 188 H (4-34) U/L Alkaline Phosphatase 154 H (38-126) U/L
--- NOTE | 2024-07-02 16:55 | P.DS ---
Providers Date of admission: 07/02/24 10:19 Expected date of discharge: 07/02/24 Attending physician: Aniket Eden Consults: 06/28/24 08:07 Consult Physician Routine Consulting Provider: Estefanía Bailon Consult Reason/Comments: medical management. spoke with Pamela Do you want consulting provider notified?: Already Contacted 06/30/24 14:12 Consult Physician Urgent Consulting Provider: Prieto Barlow Consult Reason/Comments: marked bradycardia Do you want consulting provider notified?: Yes Primary care physician: Fletcher Ospina [facility] Course: Please refer to chart for details. Patient underwent laparoscopic cholecystectomy 4 days ago. Postop with the patient has done fairly well however was significantly bradycardic. She was asymptomatic. Cardiology has seen the patient and cleared her. Liver enzymes trending downwards. Patient is anxious to go home. JUAN CARLOS drain is serosanguineous. Will remove JUAN CARLOS drain. May discharge. Follow-up with cardiology and Dr. Eden. Patient Condition at Discharge: Stable Plan - Discharge Summary Discharge Rx Participant: No New Discharge Prescriptions: New Levothyroxine Sodium [Synthroid] 25 mcg PO DAILY@30 14 Days #14 tab Continue Losartan Potassium 25 mg PO DAILY Hydrochlorothiazide 25 mg PO DAILY traZODone HCL [Desyrel] 100 mg PO HS Docusate [Colace] 100 mg PO BID Omeprazole 20 mg PO DAILY Discharge Medication List Hydrochlorothiazide 25 mg PO DAILY 12/28/15 [History] Losartan Potassium 25 mg PO DAILY 12/28/15 [History] traZODone HCL [Desyrel] 100 mg PO HS 11/09/18 [History] Omeprazole 20 mg PO DAILY 01/20/24 [History] Docusate [Colace] 100 mg PO BID 06/28/24 [History] Levothyroxine Sodium [Synthroid] 25 mcg PO DAILY@0630 14 Days #14 tab 07/02/24 [Rx] Follow up Appointment(s)/Referral(s): Fletcher Ospina MD [Primary Care Provider] - 1-2 days (Please call to schedule follow up. ) Prieto Barlow MD [Medical Doctor] - 1 Week (Please call to schedule follow up.) Vijay Dunlap MD [REFERRING] - 1 Week (Please call to schedule follow up. ) Patient Instructions/Handouts: Low Fat Diet (DC), Bradycardia (DC), Laparoscopic Cholecystectomy (DC) Activity/Diet/Wound Care/Special Instructions: Please head straight to [facility] to get heart monitor placed. Discharge Disposition: HOME SELF-CARE
== END 2024-07-02 15:33 | disposition home or self-care (01) | DRG 988 ==
LOC: EC 05:15 → 6NMEDSUR 08:47 → 5NMEDONC 16:23 → 3SCARD 06-30 15:34 → OBSVTOIN 07-02 10:19
PROVIDERS: ADMIT Surgery; ATTEND Surgery
PROC: 0FT44ZZ Resection of Gallbladder, Percutaneous Endoscopic Approach (ICD-10-PCS; principal; 2024-06-28 12:50)
PROC: 05HD33Z Insertion of Infusion Device into Right Cephalic Vein, Percutaneous Approach (ICD-10-PCS; 2024-07-01 18:05)
DX: I97.191 Other postprocedural cardiac functional disturbances following other surgery (principal); K80.00 Calculus of gallbladder with acute cholecystitis without obstruction; K82.1 Hydrops of gallbladder; Y83.8 Other surgical procedures as the cause of abnormal reaction of the patient, or of later complication, without mention of misadventure at the time of the procedure; R74.01 Elevation of levels of liver transaminase levels; E03.9 Hypothyroidism, unspecified; I10 Essential (primary) hypertension; K76.0 Fatty (change of) liver, not elsewhere classified; Z79.899 Other long term (current) drug therapy; Z85.828 Personal history of other malignant neoplasm of skin; Z28.311 Partially vaccinated for COVID-19; Z79.890 Hormone replacement therapy
CPT/HCPCS: 36415; 71045; 71046; 76705; 80053; 82150; 83036; 83690; 83735; 83880; 84443; 84481; 84484; 85025; 85379; 85610; 85730; 88304; 93005; 93306; 94760; 96361; 96365; 96366; 96375; 96376; 99285

== ENCOUNTER → 2025-02-02 | Outpatient (CLI) | payer BC ==
--- NOTE | 2025-02-03 07:48 | MM ---
Reason for Exam: Screening (asymptomatic). Last mammogram was performed 1 year(s) and 3 month(s) ago. Patient History: Menarche at age 14. First Full-Term at age 17. Postmenopausal. Patient has history of breast feeding. 11/15/2022, MG stereo VAD BX LT on the Left side. 04/04/2008, Benign Cyst Aspiration on the right side. Mother had breast cancer, age 62. Risk Values: Chelsea 5 year model risk: 2.5%. NCI Lifetime model risk: 15.5%. Prior Study Comparison: 10/17/2022 Left MG 3D work up w/cad LT, [facility]. 05/26/2023 Left MG 3D diag mammo w/cad LT, [facility]. 11/25/2023 Bilateral MG 3D diag mammo w/cad [facility], [facility]. Tissue Density: There are scattered areas of fibroglandular density. Findings: Analyzed By CAD. Chronic bilateral nodularity. Microclip left breast from prior biopsy. There is no suspicious group of microcalcifications or new suspicious mass in either breast. Overall Assessment: Benign, BI-RAD 2 Management: Screening Mammogram of both breasts in 1 year. Patient should continue monthly self-breast exams. A clinical breast exam by your physician is recommended on an annual basis. This exam should not preclude additional follow-up of suspicious palpable abnormalities. Note on Chelsea scores and lifetime risk: 1. A Chelsea score greater than 3% is considered moderate risk. If this is the case, consider specialist referral to assess eligibility for a risk reducing agent. 2. If overall lifetime risk for the development of breast cancer is 20% or higher, the patient may qualify for future screening with alternating mammogram and breast MRI. [facility], , 02/03/2025 7:45 AM. Electronically signed and approved by: Shelton Sanchez M.D. Radiologist
== END | disposition home or self-care (01) ==
LOC: RADMAMWWP 15:49
PROVIDERS: ATTEND Family Medicine
DX: Z12.31 Encounter for screening mammogram for malignant neoplasm of breast (principal); R92.323 Mammographic fibroglandular density, bilateral breasts; Z78.0 Asymptomatic menopausal state; Z80.3 Family history of malignant neoplasm of breast
CPT/HCPCS: 77063; 77067